=== PATIENT | female | born 1985 | race Caucasian/White ===

== ENCOUNTER 2018-02-01 00:42 | Emergency (ER) | payer MEDICAID, SELFPAY ==
[2018-02-01 00:44] VITALS: BP 156/100; PULSE 95; RESP 16; TEMP 36.7; O2SAT 98; BMI 55.1
[2018-02-01] MEDS: Lidocaine/Epi/Tetracaine 50 ML 1 APPLIC TOPICAL (01:09)
--- NOTE | 2018-02-01 01:43 | ED.DCSUM_ITS ---
- ER Visit Summary Date of Service: 02/01/18 Chief Complaint: Fall off porch with right ear laceration History of Present Illness: The patient is a 32 F significant past medical history of depression and reflux. Patient slipped and tripped was falling off her porch hit her right arm and lacerated her right ear when she broke a plastic flowerpot. No LOC. She is on no blood thinners. No neck pain. Denies other injuries. Tetanus is up-to-date. Physical Examination: Well-appearing young female. Vital signs are stable afebrile. H EENT exam pupils round reactive light. Scalp nontender no hematomas. She has 5-6 cm laceration of the external ear that is in a figure of a 7. It is approximately 2-1/2 cm across the top and about 3 vertically down. Involves the skin and subcu tissue. I do not see any exposed cartilage. The ear canal is unremarkable and the tympanic membrane is intact without hemotympanum. There is superficial abrasions along the angle of her jaw that she is able to open close her mouth without any difficulty there are no dental injuries but she does have poor dentition. Neck nontender full range of motion. Lungs clear heart regular rate and rhythm chest wall nontender. Abdomen soft nontender. Pelvic girdle intact. She is moving all 4 extremities. Neurovascular intact. No deformities. Normal range of motion. The right medial bicep tricep region in the midportion of the right upper arm has some bruising and abrasions but she has full range of motion of the right shoulder, elbow, wrist and hand. The right hand is neurovascularly intact. There are no deformities. And no loss of strength or sensation. She is a strong radial pulse. Back is nontender. Neurologic exam is normal. GCS is 15. Test Results: None Emergency Department Course and Treatment: Right ear laceration repair. There was external ear. It was in the figure of a 7. The laceration involves the skin and subcu tissue. It is approximately 2-1/2 cm across the top and 3-4 cm vertically. There was some blood. But no heavy active bleeding. No infection. No foreign body. There was a flap. Locally anesthetized with let and then with Xylocaine. Once proper sac was obtained it was cleaned with Shur- Clens irrigated and explored and closed using Vicryl 6 simple interrupted sutures. Proper hemostasis wound closure obtained patient tolerated procedure well. She was told that these are absorbable sutures. Treatment Plan: Ice to the area. Tylenol and Motrin for pain. Keep the wound clean. Return if any problems. Disposition: Discharge Impression: Acute fall Acute right outer ear laceration with ER repair of 6 cm. Right upper extremity contusion and abrasion. This note was generated with [employer] dictation software. It may contain incorrect words, spelling, and punctuation that were not noted in review of the chart prior to signing ED Disposition - Plan for ED Patient: Chief Complaint: Laceration Referrals: Cecilia Fenton DO [Primary Care Provider] -
--- NOTE | 2018-02-01 01:43 | ED.DEP ---
ED Disposition - Plan for ED Patient: Disposition: Home or Assisted Living Chief Complaint: Laceration Instructions: ED Laceration Facial Sutr Tape, ED Contusion Upper Ext Referrals: Cecilia Fenton DO [Primary Care Provider] - 10-14 Days suture removal Additional Instructions: Ice to face and ear. And arm. Tylenol and Motrin for pain. Keep wound clean. Clean daily with soap and water or peroxide and water. Apply antibiotic ointment daily. These stitches should dissolve in 2 weeks if they are not you can have them taken out.
[2018-02-01 01:46] VITALS: BP 148/80; PULSE 75; RESP 16; O2SAT 97
== END 2018-02-01 01:48 | disposition home or self-care (01) ==
PROVIDERS: Emergency Provider Emergency Medicine
DX: S01.311A Laceration without foreign body of right ear, initial encounter (principal); S40.021A Contusion of right upper arm, initial encounter; W17.89XA Other fall from one level to another, initial encounter; Y93.9 Activity, unspecified; Y92.9 Unspecified place or not applicable; Y99.9 Unspecified external cause status; K21.9 Gastro-esophageal reflux disease without esophagitis; F32.9 Major depressive disorder, single episode, unspecified; Z72.0 Tobacco use; Z79.899 Other long term (current) drug therapy; S00.81XA Abrasion of other part of head, initial encounter
CPT/HCPCS: 12014; 99283

== ENCOUNTER 2018-03-05 15:38 | Emergency (ER) | payer MEDICAID, SELFPAY ==
[2018-03-05 15:39] VITALS: BP 158/62; PULSE 118; RESP 17; TEMP 38.4; O2SAT 97; BMI 56.0
--- NOTE | 2018-03-05 16:20 | CT_ITS ---
STUDY: CT ABDOMEN AND PELVIS WITH CONTRAST REASON FOR EXAM: Female, 32 years old. Right upper quadrant pain RADIATION DOSAGE (If Supplied By Facility): CTDIvol = ( 18.74 ) mGy, DLP = ( 1480.68 ) mGycm TECHNIQUE: Transaxial images were obtained from the dome of the diaphragm to the symphysis pubis without oral contrast. 100CC ml of Isovue 300 contrast was administered. Sagittal and coronal images were reconstructed. Individualized dose optimization techniques were used for this CT. COMPARISON: None. FINDINGS: The visualized lung bases are clear. The visualized portions of the heart and pericardium are within normal limits. There are no calcified gallstones present. The liver is within normal limits. There are no suspicious hepatic lesions. The spleen is normal in size. The pancreas is within normal limits. The adrenal glands are within normal limits. There are no obstructing renal stones. There is no hydronephrosis. There are no focal renal lesions. Normal visualized stomach. There is no bowel obstruction or inflammation. The appendix is visualized and appears normal. The aorta is normal in caliber. There is no abdominal or pelvic free air, free fluid, fluid collection or lymphadenopathy. There are no destructive osseous lesions. CT/Abdomen/Pelvis W IV Cont ONLY IMPRESSION: No acute abdominal or pelvic pathology. Electronically Signed: Glenn Medina, at 17:54 EDT Tel , Service support ,
[2018-03-05] MEDS: 0.9% Normal Saline 1,000 ML 1000 ML IV (16:43)
[2018-03-05] MEDS: Acetaminophen 500 MG Tablet 1000 MG PO (16:44)
[2018-03-05 16:51] LABS: Mucous, Urine 0 SEEN /hpf (<or=2+)
[2018-03-05 16:59] LABS: Absolute Lymphocyte Count 1.46 X10^3/ul (0.83-4.51); Absolute Neutrophil Count 7.4 X10^3/uL (2.0-7.7); Basophil# 0.04 X10^3/uL; Basophil% 0.4 % (0-1); Eosinophil# 0.08 X10^3/uL; Eosinophils% 0.8 % (0-5); Hematocrit 43.2 % (37-47); Hemoglobin 14.5 g/dl (12.0-15.0); Lymphocyte # 1.46 X10^3/ul (4.0); Lymphocyte % 14.9 % (19-41); Mean Corp Hgb Conc 33.6 g/gl (32-36); Mean Corpuscular Volume 89.3 fL (81-99); Mean Platelet Vol. 10.9 fl (6.2-12.0); Monocyte% 8.2 % (0-10); Neutrophil # 7.39 X10^3/uL (2.7-7.7); Neutrophil % 75.5 % (47-70); Platelet Count 226 K/mm3 (150-450); RBC Distribution Width CV 14.9 % (11.6-14.6); RBC Distribution Width SD 48.7 fl (35.1-43.9); Red Blood Count 4.84 M/mm3 (4.2-5.4); White Blood Count 9.8 K/mm3 (4.4-11.0)
[2018-03-05 17:00] LABS: Color, Urine Yellow (Yellow); Glucose, Dipstick Normal (Normal); Ketone-Dipstick Negative (Negative); Leukocyte Esterase-Dipstick 500 /ul (Negative); Nitrite-Dipstick Negative (Negative); Occult Blood-Urine 25 /ul (Negative); Protein-Dipstick 30 mg/dl (Negative); Urine Bilirubin Dipstick Negative (Negative); Urine Clarity Sl. Cloudy (Clear); Urine Urobilinogen Normal (Normal)
[2018-03-05 17:00] LABS: POSITIVE COUNT NO; POSITIVE DIFFERENTIAL NO; POSITIVE MORPHOLOGY NO
[2018-03-05 17:03] LABS: AST(SGOT) 13 U/L (15-37); Alanine Aminotransfer ALT/SGPT 25 U/L (13-56); Albumin, Serum 3.5 g/dL (3.2-5.0); Alkaline Phosphatase 77 U/L (45-117); Anion Gap 10 (5-15); BUN 6 mg/dL (7-18); Bilirubin, Direct 0.12 mg/dL (0.00-0.30); Calcium,Total 8.8 mg/dL (8.5-10.1); Chloride 103 mmol/L (98-107); Creatinine, Serum 0.86 mg/dL (0.55-1.02); EST Glomerular Filtration Rate 80 mL/min (>60); Est Glom Filt Rate - Afr Amer 97 mL/min (>60); Estimated Creatinine Clearance 96.33 ml/min; Globulin 3.9 g/dL (2.2-4.2); Glucose 89 mg/dL (74-106); Lipase 91 U/L (73-393); Potassium 3.4 mmol/L (3.5-5.1); Protein, Total 7.4 g/dL (6.4-8.2); Sodium Level 139 mmol/L (136-145)
[2018-03-05 17:07] LABS: Amorphous Sediment 1+ PHOS; Bacteria 1+ /hpf (None Seen); Red Blood Cells-Urine 0-5 SEEN /hpf (0-5); Squamous Epithelial Cells - UA 0-5 SEEN /hpf (5-10); White Blood Cells 50-100 SEEN /hpf (0-5)
--- NOTE | 2018-03-05 17:35 | RAD_ITS ---
STUDY: X-RAY CHEST REASON FOR EXAM: Female, 32 years old. Fever TECHNIQUE: Frontal and lateral views of the chest COMPARISON: None. FINDINGS: The lungs are clear. There are no pleural effusions. There is no pneumothorax. The heart is normal in size. The visualized osseous structures are within normal limits. RAD/Chest PA and Lateral IMPRESSION: No acute thoracic pathology. Electronically Signed: Glenn Medina, at 17:56 EDT Tel , Service support ,
--- NOTE | 2018-03-05 18:10 | ED.VISSUMM ---
- ER Visit Summary Date of Service: 03/05/18 Chief Complaint: I feel funny History of Present Illness: The patient is a 32 F past medical history of reflux and gallstones also depression. Patient states that since last night she just feels not well. She did not realize she had a fever so she came to the ER. Her last menstrual period was 1 week ago. She states she has been p.m. more frequently but does not burn or hurt is not cloudy or bloody. She denies any severe headache she also denies any nausea, vomiting via. She denies any cough or abdominal pain she denies any chills. Physical Examination: Vital signs are stable she does have a fever 101.1. She does not look septic or toxic. She is in no distress. H EENT exam unremarkable. Moist mucous members. Neck nontender no meningismus. Lungs clear to auscultation bilaterally. Heart tachycardic rate about 118 no murmur. Abdomen is soft. She is obese. She has very minimal right upper quadrant discomfort. But no peritoneal signs. Right lower quadrant unremarkable. She is moving all 4 extremities. Neurovascular intact. Neurologically she is awake alert with no focal motor or sensory deficits. Test Results: Patient underwent infectious workup. Chest x-ray two-view showed no acute abnormality read both by myself the radiologist. CT abdomen and pelvis showed no acute abnormality. They did not see any gallstones or calcified this time. CBC showed a white count 9 H&H 1443. Chemistries normal. Liver enzymes and lipase normal UAs showed 50-100 white cells consistent with UTI 1+ bacteria no nitrates. No epithelial cells. It was sent for culture. Emergency Department Course and Treatment: Treated with Keflex 500 mg 4 times daily for 1 week. Given first dose in the ER. She was treated with a liter fluid in the ER. Treatment Plan: Keflex 4 times daily for 1 week. Follow-up with primary care physician. Return if worse. Disposition: Discharge Impression: Acute UTI with fever This note was generated with [employer] dictation software. It may contain incorrect words, spelling, and punctuation that were not noted in review of the chart prior to signing ED Disposition - Plan for ED Patient: Chief Complaint: General Illness Referrals: Cecilia Fenton DO [Primary Care Provider] -
--- NOTE | 2018-03-05 18:15 | ED.DEP ---
ED Disposition - Plan for ED Patient: Disposition: Home or Assisted Living Chief Complaint: General Illness Instructions: ED UTI Cystitis Female Prescriptions: Cephalexin [Keflex] 500 mg PO Q6 #28 cap Referrals: Cecilia Fenton DO [Primary Care Provider] - 3-5 Days Additional Instructions: Plenty fluids and rest. Alternate Tylenol Motrin for fever. Urine culture was sent those results should be back in 48 hours. He will be started on antibiotic, Keflex to be taken 4 times a day till gone to treat the UTI. Follow-up with primary care physician or return to ER if worse.
[2018-03-05 18:27] VITALS: BP 147/73; PULSE 96; RESP 18; TEMP 37.4
[2018-03-05] MEDS: Cephalexin 250 MG Capsule 500 MG PO (18:27)
== END 2018-03-05 18:29 | disposition home or self-care (01) ==
PROVIDERS: Emergency Provider Emergency Medicine
DX: N39.0 Urinary tract infection, site not specified (principal); R50.9 Fever, unspecified; R00.0 Tachycardia, unspecified; K21.9 Gastro-esophageal reflux disease without esophagitis; E66.9 Obesity, unspecified; F32.9 Major depressive disorder, single episode, unspecified; Z79.899 Other long term (current) drug therapy; Z72.0 Tobacco use
CPT/HCPCS: 71046; 74177; 80048; 80076; 81001; 83690; 85025; 87040; 87086; 87088; 87186; 96360; 99285; J7030; Q9967; A4216

== ENCOUNTER 2018-06-14 03:57 | Emergency (ER) | payer MEDICAID, SELFPAY ==
[2018-06-14 03:58] VITALS: BP 147/84; PULSE 90; RESP 16; TEMP 36.8; O2SAT 97; BMI 54.9
--- NOTE | 2018-06-14 04:42 | ED.VISSUMM ---
- ER Visit Summary Date of Service: 06/14/18 Chief Complaint: Something not right going on in my head History of Present Illness: The patient is a 32 F who presents for 1 week of an odd feeling in her head. She states that her brain feels sluggish and when she turns her head she feels like things around her move at a different speed. Symptoms are relieved if she sits still. She also has an occasional episode of a tingling sensation running down her left arm that will last approximately 15-20 seconds. It is occurred approximately once daily since her symptoms started. Yesterday she felt brief neck stiffness but it resolved without any medication. She denies fever, blurred vision, chest pain, shortness of breath, abdominal pain, vomiting or diarrhea, urinary symptoms, , or other complaints. She notes a head injury 6 months ago where she fell and struck the right side of her head on a pot, breaking the pot. She required stitches in her right ear. 2 months ago she was evaluated for similar symptoms as today, and states she had a full workup with no findings. Her symptoms resolved on their own after approximately 1 week. Patient takes Lexapro, and states she ran out of her prescription, and has not taken any since shortly before these current symptoms started. Physical Examination: Vital signs: afebrile, hemodynamically stable, no hypoxia on room air General: well nourished, well developed, in no distress Skin: warm, dry, no rash, no pallor HEENT: normocephalic and atraumatic; PERRL, EOMI, moist mucous membranes, no nystagmus, no facial droop, neck is nontender, full active range of motion and supple Cardiovascular: regular rate and rhythm without murmurs, no peripheral edema, 2+ pulses all distal extremities Respiratory: No increased work of breathing, lungs are clear to auscultation bilaterally, no rales, rhonchi or wheezing Abdominal: Abdomen is soft, nontender with normoactive bowel sounds, no guarding or rebound, no masses MSK: Moves all extremities, no deformities, normal strength Neuro: Awake and alert, oriented ?4. No facial droop, sensation and motor function intact and symmetric, gait is normal, no cerebellar signs, no ataxia Test Results: [] Emergency Department Course and Treatment: Patient's description of her symptoms sounds consistent with peripheral vertigo. After we discussed her medications and she stated she was supposed to be on Lexapro but ran out over 1 week ago, shortly before these vague symptoms began, we discussed the possibility that this is a SSRI withdrawal syndrome, especially with the tingling in her left arm and the multiple vague complaints consistent with vertigo and disequilibrium. Patient has no findings on her history or exam that would be concerning for a central cause of her symptoms, especially since she had similar episodes in the past that resolved after several days without intervention. Patient was given a dose of meclizine. She was given a prescription for meclizine and also a prescription for her Lexapro. She has an appointment with her primary care doctor for her annual exam and to get a refill on her Lexapro prescription. She will keep this appointment. She will see if she feels better after resuming her Lexapro tomorrow. Return precautions given. Patient discharged home very well-appearing. Treatment Plan: [] Disposition: [] Impression: Peripheral vertigo, SSRI withdrawal syndrome This note was generated with [employer] dictation software. It may contain incorrect words, spelling, and punctuation that were not noted in review of the chart prior to signing ED Disposition - Plan for ED Patient: Disposition: Home or Assisted Living Chief Complaint: Ear Problem Instructions: ED Vertigo Unspecified Prescriptions: Escitalopram Oxalate [Lexapro] 10 mg PO DAILY #30 tab Meclizine HCl [Motion Sickness Relief] 25 mg PO TID PRN PRN #30 tab PRN Reason: Dizziness Referrals: Cecilia Fenton DO [Primary Care Provider] - Keep Regina appointment Additional Instructions: Your symptoms may be due to withdrawal from your Lexapro. Please fill the prescription and start taking it again today. Use the meclizine as needed for vertigo and disequilibrium. Return if you have any worsening of your symptoms, and keep your appointment with your family doctor as already scheduled. If you have any worsening of your condition or any new concerning symptoms, please return immediately to the emergency department for another evaluation.
--- NOTE | 2018-06-14 04:47 | ED.DEP ---
ED Disposition - Plan for ED Patient: Disposition: Home or Assisted Living Chief Complaint: Ear Problem Instructions: ED Vertigo Unspecified Prescriptions: Escitalopram Oxalate [Lexapro] 10 mg PO DAILY #30 tab Meclizine HCl [Motion Sickness Relief] 25 mg PO TID PRN PRN #30 tab PRN Reason: Dizziness Referrals: Cecilia Fenton DO [Primary Care Provider] - Keep Regina appointment Additional Instructions: Your symptoms may be due to withdrawal from your Lexapro. Please fill the prescription and start taking it again today. Use the meclizine as needed for vertigo and disequilibrium. Return if you have any worsening of your symptoms, and keep your appointment with your family doctor as already scheduled. If you have any worsening of your condition or any new concerning symptoms, please return immediately to the emergency department for another evaluation.
[2018-06-14] MEDS: Meclizine HCl 25 MG Tablet PO (04:56)
[2018-06-14 05:06] VITALS: RESP 14
== END 2018-06-14 05:07 | disposition home or self-care (01) ==
PROVIDERS: Emergency Provider Emergency Medicine
DX: H81.399 Other peripheral vertigo, unspecified ear (principal); F13.239 Sedative, hypnotic or anxiolytic dependence with withdrawal, unspecified; R20.2 Paresthesia of skin
CPT/HCPCS: 99283

== ENCOUNTER 2018-10-07 17:06 | Emergency (ER) | payer MEDICAID, SELFPAY ==
[2018-10-07 17:07] VITALS: BP 169/94; PULSE 95; RESP 16; TEMP 36.4; O2SAT 100; BMI 51.7
--- NOTE | 2018-10-07 18:08 | RAD_ITS ---
STUDY: X-RAY - LEFT SHOULDER REASON FOR EXAM: Female, 33 years old. Pain TECHNIQUE: 4 view(s) of the shoulder. COMPARISON: None. FINDINGS: Normal glenohumeral articulation. Normal acromioclavicular joint. Normal acromion. Normal humeral head and visualized proximal humerus. The soft tissue structures are unremarkable. Normal visualized pulmonary apex. RAD/Shoulder min 2 Views IMPRESSION: Normal x-ray examination of the shoulder. Electronically Signed: Roland Rogers DO at 18:27 EST Tel [phone], Service support ,
--- NOTE | 2018-10-07 18:53 | ED.VIS.GEN ---
History of Present Illness Chief Complaint: Upper Extremity Injury Informant: Patient Onset: Today - JPTA Context: Sudden Onset - while using LUE to open a car door Quality: pain Location: anterior left shoulder Current Severity: Moderate Maximum Severity: Severe Worsened by: any movement of left shoulder Relieved by: remaining still Associated Symptoms: none Narrative: No history of steroid injections or surgeries in her left upper extremity. [id number]. No neurologic symptoms into her upper extremity or pain into her neck. No other radiation of pain except down her anterior left upper arm, along the biceps area. Past Medical History - Allergies and Home Meds Allergies/Adverse Reactions: Allergies No Known Allergies Allergy (Verified 06/14/18 04:00) Primary Care Physician: Cecilia Fenton DO [Primary Care Provider] - Past Medical History: None Lives: Alone Smoking Status: Current every day smoker Review of Systems Musculoskeletal: Reports: Extremity Pain. Denies: Neck pain, Back pain, Swelling Skin: Denies: Rash, Wounds Neurological: Denies: Weakness, Parasthesia Physical Exam Vital Signs/Narrative: Vital Signs Temp Pulse Resp BP Pulse Ox 10/07/18 17:07 97.6 F L 95 16 169/94 H 100 Inital Vital Signs reviewed: Yes General: Well nourished, Well developed, Obese Head: Normocephalic, Atraumatic Back: Nontender Extremities: No edema, Tenderness - Anterior left shoulder an area of short head of biceps tendon proximally. No subacromial tenderness. No bony acromion or AC joint tenderness, or other bony tenderness. Limited forward flexion of arm and abduction secondary to pain. No deformity. Able to internally and externally rotate, and extend against resistance without significant discomfort. Skin: Normal color, No rash, No Trauma Neurological: Alert, Oriented x3, Cranial nerves II-XII grossly intact, Normal Strength, Normal Sensation Psychological: Normal affect Diagnostic/Tx/Re-eval Clinical Impression(s) from Imaging Studies Shoulder X-Ray 10/07/18 18:08 IMPRESSION: Normal x-ray examination of the shoulder. Electronically Signed: Roland Rogers DO at 18:27 EST Tel [phone], Service support , - Medical Decision Making X-rays are unremarkable. My suspicion is that she ruptured her biceps short head tendon. We will place her in a sling, prescribed analgesics, and refer to orthopedics for further evaluation and possibly advanced imaging which is not indicated emergently. ED Disposition - Plan for ED Patient: Disposition: Home or Assisted Living Chief Complaint: Upper Extremity Injury Diagnosis: Rupture of left proximal biceps tendon Instructions: ED Torn Rotator Cuff Prescriptions: traMADol [Ultram] 50 mg PO Q4H PRN PRN 3 Days #20 tab PRN Reason: Pain Naproxen [Naprosyn] 500 mg PO BID PRN #20 tab Referrals: Justice Torre DO [STAFF PHYSICIAN] - As soon as possible
[2018-10-07] MEDS: traMADol 50 MG Tablet PO (19:08)
[2018-10-07] MEDS: Naproxen 500 MG Tablet PO (19:08)
[2018-10-07 19:09] VITALS: BP 141/80; PULSE 70; RESP 17; O2SAT 100
--- OUTSIDE RECORDS SUMMARY | 2018-12-12 17:03 | XMS RPT_ITS ---
:1985 Author Organization [place] Care Team Providers Name Role Phone Cecilia Fenton Primary Care Unavailable CHARLES ARAUJO Attending Unavailable Cecilia Fenton Primary Care Unavailable Vijay Salguero Attending Unavailable Cecilia Fenton Primary Care Unavailable Vijay Salguero Attending Unavailable Cecilia Fenton Primary Care Unavailable Farida Peter Attending Unavailable PROBLEMS PROBLEMS DATE TYPE CONDITION / CODE ATTENDING STATUS SOURCE 10/07/2018 Unknown S46.219A - Strain CHARLES ARAUJO Active [place] of muscle, fascia Community and tendon of Hospital other parts of Repository biceps, unspecified arm, initial encounter / S46.219A(ICD-10) PROCEDURES PROCEDURES No Procedure Records FoundRESULTS RESULTS EMERGENCY DEPARTMENT Observed: 10/07/2018 Status: F Source: LINGLE SUMMARY 6:58 PM [facility] REPOSIT[facility] Medical Records Department [address] [place] [address] Emergency Department Summary 10/07/18 1853 MR#: [id number] Acct: [id number] Name: MARY GONZALEZ Rep #: [id number] : 1985 33 From: Charles Araujo MD PCP: Cecilia Fenton DO Status: REG ER History of Present Illness Chief Complaint: Upper Extremity Injury Informant: Patient Onset: Today - JPTA Context: Sudden Onset - while using LUE to open a car door Quality: pain Location: anterior left shoulder Current Severity: Moderate Maximum Severity: Severe Worsened by: any movement of left shoulder Relieved by: remaining still Associated Symptoms: none Narrative: No history of steroid injections or surgeries in her left upper extremity. [id number]. No neurologic symptoms into her upper extremity or pain into her neck. No other radiation of pain except down her anterior left upper arm, along the biceps area. Past Medical History - Allergies and Home Meds Allergies/Adverse Reactions: Allergies No Known Allergies Allergy (Verified 06/14/18 04:00) Primary Care Physician: Cecilia Fenton DO [Primary Care Provider] - Past Medical History: None Lives: Alone Smoking Status: Current every day smoker Review of Systems Musculoskeletal: Reports: Extremity Pain. Denies: Neck pain, Back pain, Swelling Skin: Denies: Rash, Wounds Neurological: Denies: Weakness, Parasthesia Physical Exam Vital Signs/Narrative: Vital Signs 10/07/18 17:07 97.6 F L 95 16 169/94 H 100 Inital Vital Signs reviewed: Yes General: Well nourished, Well developed, Obese Head: Normocephalic, Atraumatic Back: Nontender Extremities: No edema, Tenderness - Anterior left shoulder an area of short head of biceps tendon proximally. No subacromial tenderness. No bony acromion or AC joint tenderness, or other bony tenderness. Limited forward flexion of arm and abduction secondary to pain. No deformity. Able to internally and externally rotate, and extend against resistance without significant discomfort. Skin: Normal color, No rash, No Trauma Neurological: Alert, Oriented x3, Cranial nerves II-XII grossly intact, Normal Strength, Normal Sensation Psychological: Normal affect Diagnostic/Tx/Re-eval Clinical Impression(s) from Imaging Studies Shoulder X-Ray 10/07/18 18:08 IMPRESSION: Normal x-ray examination of the shoulder. Electronically Signed: Roland Rogers DO at 18:27 EST Tel [phone], Service support , - Medical Decision Making X-rays are unremarkable. My suspicion is that she ruptured her biceps short head tendon. We will place her in a sling, prescribed analgesics, and refer to orthopedics for further evaluation and possibly advanced imaging which is not indicated emergently. ED Disposition - Plan for ED Patient: Disposition: Home or Assisted Living Chief Complaint: Upper Extremity Injury Diagnosis: Rupture of left proximal biceps tendon Instructions: ED Torn Rotator Cuff Prescriptions: traMADol [Ultram] 50 mg PO Q4H PRN PRN 3 Days #20 tab PRN Reason: Pain Naproxen [Naprosyn] 500 mg PO BID PRN #20 tab Referrals: Justice Torre DO [STAFF PHYSICIAN] - As soon as possible What to do if you have Problems For any increased pain, shortness of breath, bleeding, nausea or vomiting, chest pain, or any unexpected problems, contact your Primary Care Provider. Call [facility] ([phone]) or report to the closest Emergency Room. Call 911 if necessary. 10/07/18 5611 <Electronically signed by Charles Araujo MD> Date Charles Araujo MD Cosigner Signature (If Indicated): Date CC: Cecilia Fenton DO SHOULDER MIN 2 VIEWS Observed: 10/07/2018 Status: F Source: DIANNA 6:02 PM [facility]POS[facility] Imaging Services [facility] [place] [address] Shoulder min 2 Views MR#: [id number] Acct: [id number] Name: MARY OGNZALEZ Rep #: [id number] : 1985 F 33 From: Roland Rogers DO PCP: Cecilia Fenton DO Status: REG ER Study: Shoulder min 2 Views Date of Exam: 10/07/18 Exam# [id number] Ordering Dr: Charles Araujo MD STUDY: X-RAY - LEFT SHOULDER REASON FOR EXAM: Female, 33 years old. Pain TECHNIQUE: 4 view(s) of the shoulder. COMPARISON: None. FINDINGS: Normal glenohumeral articulation. Normal acromioclavicular joint. Normal acromion. Normal humeral head and visualized proximal humerus. The soft tissue structures are unremarkable. Normal visualized pulmonary apex. RAD/Shoulder min 2 Views IMPRESSION: Normal x-ray examination of the shoulder. Electronically Signed: Roland Rogers DO at 18:27 EST Tel [phone], Service support , CC: CHARLES ARAUJO MD; Cecilia Fenton DO Tourist Information Assistant: Signed EMERGENCY DEPARTMENT Observed: 06/14/2018 Status: F Source: LINGLE SUMMARY 8:42 AM [facility]POS[facility] Medical Records Department [address] [place] [address] Emergency Department Summary 06/14/18 0442 MR#: [id number] Acct: [id number] Name: MARY GONZALEZ Rep #: [id number] : 1985 32 From: Farida Peter MD PCP: Cecilia Fenton DO Status: DEP ER - ER Visit Summary Date of Service: 06/14/18 Chief Complaint: Something not right going on in my head History of Present Illness: The patient is a 32 F who presents for 1 week of an odd feeling in her head. She states that her brain feels sluggish and when she turns her head she feels like things around her move at a different speed. Symptoms are relieved if she sits still. She also has an occasional episode of a tingling sensation running down her left arm that will last approximately 15-20 seconds. It is occurred approximately once daily since her symptoms started. Yesterday she felt brief neck stiffness but it resolved without any medication. She denies fever, blurred vision, chest pain, shortness of breath, abdominal pain, vomiting or diarrhea, urinary symptoms, , or other complaints. She notes a head injury 6 months ago where she fell and struck the right side of her head on a pot, breaking the pot. She required stitches in her right ear. 2 months ago she was evaluated for similar symptoms as today, and states she had a full workup with no findings. Her symptoms resolved on their own after approximately 1 week. Patient takes Lexapro, and states she ran out of her prescription, and has not taken any since shortly before these current symptoms started. Physical Examination: Vital signs: afebrile, hemodynamically stable, no hypoxia on room air General: well nourished, well developed, in no distress Skin: warm, dry, no rash, no pallor HEENT: normocephalic and atraumatic; PERRL, EOMI, moist mucous membranes, no nystagmus, no facial droop, neck is nontender, full active range of motion and supple Cardiovascular: regular rate and rhythm without murmurs, no peripheral edema, 2+ pulses all distal extremities Respiratory: No increased work of breathing, lungs are clear to auscultation bilaterally, no rales, rhonchi or wheezing Abdominal: Abdomen is soft, nontender with normoactive bowel sounds, no guarding or rebound, no masses MSK: Moves all extremities, no deformities, normal strength Neuro: Awake and alert, oriented 4. No facial droop, sensation and motor function intact and symmetric, gait is normal, no cerebellar signs, no ataxia Test Results: [] Emergency Department Course and Treatment: Patient's description of her symptoms sounds consistent with peripheral vertigo. After we discussed her medications and she stated she was supposed to be on Lexapro but ran out over 1 week ago, shortly before these vague symptoms began, we discussed the possibility that this is a SSRI withdrawal syndrome, especially with the tingling in her left arm and the multiple vague complaints consistent with vertigo and disequilibrium. Patient has no findings on her history or exam that would be concerning for a central cause of her symptoms, especially since she had similar episodes in the past that resolved after several days without intervention. Patient was given a dose of meclizine. She was given a prescription for meclizine and also a prescription for her Lexapro. She has an appointment with her primary care doctor for her annual exam and to get a refill on her Lexapro prescription. She will keep this appointment. She will see if she feels better after resuming her Lexapro tomorrow. Return precautions given. Patient discharged home very well-appearing. Treatment Plan: [] Disposition: [] Impression: Peripheral vertigo, SSRI withdrawal syndrome This note was generated with [employer] software. It may contain incorrect words, spelling, and punctuation that were not noted in review of the chart prior to signing ED Disposition - Plan for ED Patient: Disposition: Home or Assisted Living Chief Complaint: Ear Problem Instructions: ED Vertigo Unspecified Prescriptions: Escitalopram Oxalate [Lexapro] 10 mg PO DAILY #30 tab Meclizine HCl [Motion Sickness Relief] 25 mg PO TID PRN PRN #30 tab PRN Reason: Dizziness Referrals: Cecilia Fenton DO [Primary Care Provider] - Keep Regina appointment Additional Instructions: Your symptoms may be due to withdrawal from your Lexapro. Please fill the prescription and start taking it again today. Use the meclizine as needed for vertigo and disequilibrium. Return if you have any worsening of your symptoms, and keep your appointment with your family doctor as already scheduled. If you have any worsening of your condition or any new concerning symptoms, please return immediately to the emergency department for another evaluation. What to do if you have Problems For any increased pain, shortness of breath, bleeding, nausea or vomiting, chest pain, or any unexpected problems, contact your Primary Care Provider. Call [facility] ([phone]) or report to the closest Emergency Room. Call 911 if necessary. 06/14/18 0886 <Electronically signed by Farida Peter MD> Date Farida Peter MD Cosigner Signature (If Indicated): Date CC: Cecilia Fenton DO DISCHARGE INSTRUCTION Observed: 06/14/2018 Status: F Source: DIANNA 7:55 AM [facility] Medical Records Department [address] [place] [address] Discharge Instruction 06/14/18 0447 MR#: [id number] Acct: [id number] Name: MARY GONZALEZ Rep #: [id number] : 1985 32 From: Farida Peter MD PCP: Cecilia Fenton DO Status: DEP ER ED Disposition - Plan for ED Patient: Disposition: Home or Assisted Living Chief Complaint: Ear Problem Instructions: ED Vertigo Unspecified Prescriptions: Escitalopram Oxalate [Lexapro] 10 mg PO DAILY #30 tab Meclizine HCl [Motion Sickness Relief] 25 mg PO TID PRN PRN #30 tab PRN Reason: Dizziness Referrals: Cecilia Fenton DO [Primary Care Provider] - Keep Regina appointment Additional Instructions: Your symptoms may be due to withdrawal from your Lexapro. Please fill the prescription and start taking it again today. Use the meclizine as needed for vertigo and disequilibrium. Return if you have any worsening of your symptoms, and keep your appointment with your family doctor as already scheduled. If you have any worsening of your condition or any new concerning symptoms, please return immediately to the emergency department for another evaluation. What to do if you have Problems For any increased pain, shortness of breath, bleeding, nausea or vomiting, chest pain, or any unexpected problems, contact your Primary Care Provider. Call [facility] ([phone]) or report to the closest Emergency Room. Call 911 if necessary. 06/14/18 0755 <Electronically signed by Farida Peter MD> Date Farida Peter MD Cosigner Signature (If Indicated): Date CC: Cecilia Fenton DO EMERGENCY DEPARTMENT Observed: 03/06/2018 Status: F Source: DIANNA SUMMARY 12:44 AM [facility] Medical Records Department [address] [place] [address] Emergency Department Summary 03/05/18 1810 MR#: [id number] Acct: [id number] Name: MARY GONZALEZ Rep #: [id number] : 1985 32 From: Vijay Salguero MD PCP: Cecilia Fenton DO Status: DEP ER - ER Visit Summary Date of Service: 03/05/18 Chief Complaint: I feel funny History of Present Illness: The patient is a 32 F past medical history of reflux and gallstones also depression. Patient states that since last night she just feels not well. She did not realize she had a fever so she came to the ER. Her last menstrual period was 1 week ago. She states she has been p.m. more frequently but does not burn or hurt is not cloudy or bloody. She denies any severe headache she also denies any nausea, vomiting via. She denies any cough or abdominal pain she denies any chills. Physical Examination: Vital signs are stable she does have a fever 101.1. She does not look septic or toxic. She is in no distress. H EENT exam unremarkable. Moist mucous members. Neck nontender no meningismus. Lungs clear to auscultation bilaterally. Heart tachycardic rate about 118 no murmur. Abdomen is soft. She is obese. She has very minimal right upper quadrant discomfort. But no peritoneal signs. Right lower quadrant unremarkable. She is moving all 4 extremities. Neurovascular intact. Neurologically she is awake alert with no focal motor or sensory deficits. Test Results: Patient underwent infectious workup. Chest x-ray two-view showed no acute abnormality read both by myself the radiologist. CT abdomen and pelvis showed no acute abnormality. They did not see any gallstones or calcified this time. CBC showed a white count 9 H AND H 1443. Chemistries normal. Liver enzymes and lipase normal UAs showed 50-100 white cells consistent with UTI 1+ bacteria no nitrates. No epithelial cells. It was sent for culture. Emergency Department Course and Treatment: Treated with Keflex 500 mg 4 times daily for 1 week. Given first dose in the ER. She was treated with a liter fluid in the ER. Treatment Plan: Keflex 4 times daily for 1 week. Follow-up with primary care physician. Return if worse. Disposition: Discharge Impression: Acute UTI with fever This note was generated with [employer] dictation software. It may contain incorrect words, spelling, and punctuation that were not noted in review of the chart prior to signing ED Disposition - Plan for ED Patient: Chief Complaint: General Illness Referrals: Cecilia Fenton DO [Primary Care Provider] - What to do if you have Problems For any increased pain, shortness of breath, bleeding, nausea or vomiting, chest pain, or any unexpected problems, contact your Primary Care Provider. Call [facility] ([phone]) or report to the closest Emergency Room. Call 911 if necessary. 03/06/18 0044 <Electronically signed by Vijay Salguero MD> Date Vijay Salguero MD Cosign Signature (If Indicated): Date CC: Cecilia Fenton DO DISCHARGE INSTRUCTION Observed: 03/06/2018 Status: F Source: LINGLE 12:44 AM [facility] Medical Records Department [address] [place] [address] Discharge Instruction 03/05/18 1815 MR#: [id number] Acct: [id number] Name: LISAMARY M Rep #: [id number] : 1985 32 From: Vijay Salguero MD PCP: Cecilia Fenton DO Status: DEP ER ED Disposition - Plan for ED Patient: Disposition: Home or Assisted Living Chief Complaint: General Illness Instructions: ED UTI Cystitis Female Prescriptions: Cephalexin [Keflex] 500 mg PO Q6 #28 cap Referrals: Cecilia Fenton DO [Primary Care Provider] - 3-5 Days Additional Instructions: Plenty fluids and rest. Alternate Tylenol Motrin for fever. Urine culture was sent those results should be back in 48 hours. He will be started on antibiotic, Keflex to be taken 4 times a day till gone to treat the UTI. Follow-up with primary care physician or return to ER if worse. What to do if you have Problems For any increased pain, shortness of breath, bleeding, nausea or vomiting, chest pain, or any unexpected problems, contact your Primary Care Provider. Call [facility] ([phone]) or report to the closest Emergency Room. Call 911 if necessary. 03/06/18 0044 <Electronically signed by Vijay Salguero MD> Date Vijay Salguero MD Cosigner Signature (If Indicated): Date CC: Cecilia Fenton DO Observed: 03/05/2018 Status: F Source: DIANNA CULTURE, BLOOD (WB) 5:15 PM [facility] REPOSITORY BC No growth in 5 days. Performed By: #### M200.1000 #### [facility] [address] [place], [address] URINALYSIS, COMPLETE Collected: 03/05/2018 Status: F Source: DIANNA 4:48 PM [facility] REPOSITORY Order Comment: Order Date: 03/05/18 How was Urine Obtained? CLEAN CATCH TYPE CODE TESTS RESULT OUT OF RANGE REFERENCE UNITS LAB L400.3000 Yellow COLOR Normal Yellow LAB L400.3050 Clear Normal CLARITY Sl. Cloudy LAB L400.3200 Normal mg/dl Normal GLUCOSE, UR Normal LAB L400.3300 Negative mg/dL Normal BILIRUBIN URINE Negative LAB L400.3400 Negative mg/dl Normal KETONE UR Negative LAB L400.3465 1.002-1.030 Normal SP.GR. DIPSTX 1.010 LAB L400.3550 5.0 - 8.0 pH UR Normal 8.0 LAB L400.3600 Negative mg/dl High PROT 30 DIPSTX LAB L400.3700 Normal mg/dl Normal UROBILI Normal LAB L400.3750 Negative Normal NITRITE UR Negative LAB L400.3780 Negative /ul High 25 OCCULT BLOOD-UR LAB L400.3800 Negative /ul High LEUK ESTERASE 500 LAB L400.4050 0-5 /hpf WBC Normal 50-100 SEEN LAB L400.4100 0-5 /hpf Normal RBC-UA 0-5 SEEN LAB L400.4150 5-10 /hpf SQUAM Normal EPI 0-5 SEEN LAB L400.4300 None Seen /hpf 1+ Normal BACTERIA LAB L400.4350 <or=2+ /hpf 0 Normal MUCUS, URINE SEEN LAB L400.4900 1+ Normal AMORPHOUS PHOS Performed By: #### L400.0001 #### [facility] [address] [facility]. [place], [place], [id number] Observed: 03/05/2018 Status: F Source: LINGLE CULTURE, URINE 4:48 PM [facility] REPOSITORY Order Date: 03/05/18 Urine Culture ORGANISM 1: Presumptive E. coli [place] Count >100,000 Presumptive E. coli: REACTION Amoxacillin/Clavulanic Acid $ 4 S Ampicillin $ >=32 R Ampicillin/Sulbactam $ 16 I Cefazolin $ <=4 S Cefepime $ <=1 S Ceftriaxone $ <=1 S Ciprofloxacin $ <=0.25 S ESBL - Ertapenim $$$ <=0.5 S Gentamicin $ <=1 S Imipenem *NF <=0.25 S Levofloxacin $ <=0.12 S Nitrofurantoin $ 32 S Piperacillin/Tazobactam $$ <=4 S Tobramycin $ <=1 S Trimethoprim/Sulfametho $ <=20 S (NF) indicates non-formulary drug at [facility]. Approval by Infectious Disease Specialist required before non-formulary drugs may be ordered and/or dispensed. Performed By: #### M100.0650 #### [facility] [address] [facility]. [place], [place], [id number] CBC W/DIFF, AUTOMATED Collected: 03/05/2018 Status: F Source: DIANNA 4:35 PM [facility]POS[facility] TYPE CODE TESTS RESULT OUT OF RANGE REFERENCE UNITS LAB L100.1000 4.4-11.0 K/mm3 Normal WBC 9.8 LAB L100.1200 4.2-5.4 M/mm3 Normal RBC 4.84 LAB L100.1300 12.0-15.0 g/dl Normal HGB 14.5 LAB L100.1400 37-47 % Normal HCT 43.2 LAB L100.1500 81-99 fL Normal MCV 89.3 LAB L100.1600 27.0-32.0 pg Normal MCH 30.0 LAB L100.1700 32-36 g/gl Normal MCHC 33.6 LAB L100.1810 11.6-14.6 % High RDW CV 14.9 LAB L100.1820 35.1-43.9 fl High RDW SD 48.7 LAB L100.1900 150-450 K/mm3 Normal PLT 226 LAB L100.2000 6.2-12.0 fl Normal MPV 10.9 LAB L100.2100 47-70 % High NEUT% 75.5 LAB L100.2200 19-41 % Low LY% 14.9 LAB L100.2300 0-10 % Normal MONO% 8.2 LAB L100.2400 0-5 % Normal EO% 0.8 LAB L100.2500 0-1 % Normal BASO% 0.4 LAB L100.2550 0.0-0.9 % Normal IM GRAN % 0.200 Result Comment: IG% - Immature Granulocytes (promyelocytes, myelocytes and metamyelocytes) > 1% indicates that a LEFT SHIFT is Present. LAB L100.2620 2.0-7.7 X10 3/uL Normal Absolute Neut 7.4 LAB L100.2720 0.83-4.51 X10 3/ul Normal Absolute Lymph 1.46 Performed By: #### L100.0100 #### [facility] [address] [place], [place], [address] BASIC METABOLIC Collected: 03/05/2018 Status: F Source: DIANNA PROFILE (BMP) 4:35 PM [facility]POS[facility] TYPE CODE TESTS RESULT OUT OF RANGE REFERENCE UNITS LAB L501.0100 74-106 mg/dL Normal GLU 89 Result Comment: Please note revised GLUCOSE reference range effective 2017. LAB L501.1000 7-18 mg/dL Low BUN 6 LAB L501.1100 0.55-1.02 mg/dL Normal CREAT,SERUM 0.86 Result Comment: The validity of the calculated GFR AND GFRAA in patients over 70 years has not been determined. Clinical correlation is essential. LAB L501.1110 >60 mL/min Normal EST GFR 80 Result Comment: Non- GFR Calc LAB L501.1115 >60 mL/min Normal EST GFR - AA 97 Result Comment: GFR Calc LAB L501.1255 ml/min Normal Estimated CRCL 96.33 LAB L501.1300 10-20 RATIO Low BUN/CRE 7.0 LAB L501.2200 8.5-10 mg/dL Normal .1 CA 8.8 LAB L501.5300 136-14 mmol/L Normal 5 NA 139 LAB L501.5600 3.5-5. mmol/L Low 1 K 3.4 LAB L501.5900 98-107 mmol/L Normal CL 103 LAB L501.6100 21.0-3 mmol/L Normal 2.0 CO2 26.0 LAB L501.6200 5-15 Normal GAP 10 Performed By: #### L500.2500, L500.3400, L501.2450 #### [facility] [address] [place], [address] LIVER PROFILE Collected: 03/05/2018 Status: F Source: LINGLE 4:35 PM [facility]POS[facility] TYPE CODE TESTS RESULT OUT OF RANGE REFERENCE UNITS LAB L501.1500 6.4-8.2 g/dL Normal T PROT 7.4 LAB L501.1800 3.2-5.0 g/dL Normal ALB 3.5 LAB L501.1950 2.2-4.2 g/dL Normal GLOB 3.9 LAB L501.4100 15-37 U/L Low AST 13 LAB L501.4305 45-117 U/L Normal ALK P 77 LAB L501.4405 13-56 U/L Normal ALT 25 LAB L501.4600 0.20-1.00 mg/dL Normal T BILI 0.50 LAB L501.4700 0.00-0.30 mg/dL Normal D BILI 0.12 Performed By: #### L500.2500, L500.3400, L501.2450 #### [facility] [address] [place], [address] LIPASE Collected: 03/05/2018 Status: F Source: DIANNA 4:35 PM [facility] TYPE CODE TESTS RESULT OUT OF RANGE REFERENCE UNITS LAB L501.2450 73-393 U/L Normal LIPASE 91 Performed By: #### L500.2500, L500.3400, L501.2450 #### [facility] [address] [place], [address] Observed: 03/05/2018 Status: F Source: DIANNA CULTURE, BLOOD (WB) 4:35 PM [facility] RE[facility] BC No growth in 5 days. Performed By: #### M200.1000 #### [facility] [address] [place], [address] ABDOMEN/PELVIS W IV CONT Observed: 03/05/2018 Status: F Source: DIANNA ONLY 4:21 PM [facility] RE[facility] Imaging Services [address] [place] [address] Abdomen/Pelvis W IV Cont ONLY MR#: [id number] Acct: [id number] Name: MARY GONZALEZ Rep #: [id number] : 1985 F 32 From: Glenn Medina MD PCP: Cecilia Fenton DO Status: REG ER Study: Abdomen/Pelvis W IV Cont ONLY Date of Exam: 03/05/18 Exam# [id number] Ordering Dr: Vijay Salguero MD STUDY: CT ABDOMEN AND PELVIS WITH CONTRAST REASON FOR EXAM: Female, 32 years old. Right upper quadrant pain RADIATION DOSAGE (If Supplied By Facility): CTDIvol = ( 18.74 ) mGy, DLP = ( 1480.68 ) mGycm TECHNIQUE: Transaxial images were obtained from the dome of the diaphragm to the symphysis pubis without oral contrast. 100CC ml of Isovue 300 contrast was administered. Sagittal and coronal images were reconstructed. Individualized dose optimization techniques were used for this CT. COMPARISON: None. FINDINGS: The visualized lung bases are clear. The visualized portions of the heart and pericardium are within normal limits. There are no calcified gallstones present. The liver is within normal limits. There are no suspicious hepatic lesions. The spleen is normal in size. The pancreas is within normal limits. The adrenal glands are within normal limits. There are no obstructing renal stones. There is no hydronephrosis. There are no focal renal lesions. Normal visualized stomach. There is no bowel obstruction or inflammation. The appendix is visualized and appears normal. The aorta is normal in caliber. There is no abdominal or pelvic free air, free fluid, fluid collection or lymphadenopathy. There are no destructive osseous lesions. CT/Abdomen/Pelvis W IV Cont ONLY IMPRESSION: No acute abdominal or pelvic pathology. Electronically Signed: Glenn Medina, at 17:54 EDT Tel , Service support , CC: Vijay Salguero MD; Cecilia Fenton DO Tourist Information Assistant: Signed CHEST PA AND LATERAL Observed: 03/05/2018 Status: F Source: LINGLE 4:20 PM [facility] Imaging Services [address] [place] [address] Chest PA and Lateral MR#: [id number] Acct: [id number] Name: MARY GONZALEZ Rep #: [id number] : 1985 F 32 From: Glenn Medina MD PCP: Cecilia Fenton DO Status: REG ER Study: Chest PA and Lateral Date of Exam: 03/05/18 Exam# [id number] Ordering Dr: Vijay Salguero MD STUDY: X-RAY CHEST REASON FOR EXAM: Female, 32 years old. Fever TECHNIQUE: Frontal and lateral views of the chest COMPARISON: None. FINDINGS: The lungs are clear. There are no pleural effusions. There is no pneumothorax. The heart is normal in size. The visualized osseous structures are within normal limits. RAD/Chest PA and Lateral IMPRESSION: No acute thoracic pathology. Electronically Signed: Glenn Medina, at 17:56 EDT Tel , Service support , CC: Vijay Salguero MD; Cecilia Fenton DO Tourist Information Assistant: Signed EMERGENCY DEPARTMENT Observed: 02/01/2018 Status: F Source: LINGLE SUMMARY 1:50 AM [facility] Medical Records Department [address] [place] [address] Emergency Department Summary 02/01/18 0139 MR#: [id number] Acct: [id number] Name: MARY GONZALEZ Rep #: [id number] : 1985 32 From: Vijay Salguero MD PCP: Cecilia Fenton DO Status: DEP ER - ER Visit Summary Date of Service: 02/01/18 Chief Complaint: Fall off porch with right ear laceration History of Present Illness: The patient is a 32 F significant past medical history of depression and reflux. Patient slipped and tripped was falling off her porch hit her right arm and lacerated her right ear when she broke a plastic flowerpot. No LOC. She is on no blood thinners. No neck pain. Denies other injuries. Tetanus is up-to-date. Physical Examination: Well-appearing young female. Vital signs are stable afebrile. H EENT exam pupils round reactive light. Scalp nontender no hematomas. She has 5-6 cm laceration of the external ear that is in a figure of a 7. It is approximately 2-1/2 cm across the top and about 3 vertically down. Involves the skin and subcu tissue. I do not see any exposed cartilage. The ear canal is unremarkable and the tympanic membrane is intact without hemotympanum. There is superficial abrasions along the angle of her jaw that she is able to open close her mouth without any difficulty there are no dental injuries but she does have poor dentition. Neck nontender full range of motion. Lungs clear heart regular rate and rhythm chest wall nontender. Abdomen soft nontender. Pelvic girdle intact. She is moving all 4 extremities. Neurovascular intact. No deformities. Normal range of motion. The right medial bicep tricep region in the midportion of the right upper arm has some bruising and abrasions but she has full range of motion of the right shoulder, elbow, wrist and hand. The right hand is neurovascularly intact. There are no deformities. And no loss of strength or sensation. She is a strong radial pulse. Back is nontender. Neurologic exam is normal. GCS is 15. Test Results: None Emergency Department Course and Treatment: Right ear laceration repair. There was external ear. It was in the figure of a 7. The laceration involves the skin and subcu tissue. It is approximately 2-1/2 cm across the top and 3-4 cm vertically. There was some blood. But no heavy active bleeding. No infection. No foreign body. There was a flap. Locally anesthetized with let and then with Xylocaine. Once proper sac was obtained it was cleaned with Shur-Clens irrigated and explored and closed using Vicryl 6 simple interrupted sutures. Proper hemostasis wound closure obtained patient tolerated procedure well. She was told that these are absorbable sutures. Treatment Plan: Ice to the area. Tylenol and Motrin for pain. Keep the wound clean. Return if any problems. Disposition: Discharge Impression: Acute fall Acute right outer ear laceration with ER repair of 6 cm. Right upper extremity contusion and abrasion. This note was generated with [employer] dictation software. It may contain incorrect words, spelling, and punctuation that were not noted in review of the chart prior to signing ED Disposition - Plan for ED Patient: Chief Complaint: Laceration Referrals: Cecilia Fenton, [Primary Care Provider] - What to do if you have Problems For any increased pain, shortness of breath, bleeding, nausea or vomiting, chest pain, or any unexpected problems, contact your Primary Care Provider. Call [facility] ([phone]) or report to the closest Emergency Room. Call 911 if necessary. 02/01/18149 <Electronically signed by Vijay Salguero MD> Date Vijay Salguero MD Cosigner Signature (If Indicated): Date CC: Cecilia Fenton DO DISCHARGE INSTRUCTION Observed: 02/01/2018 Status: F Source: LINGLE 1:50 AM [facility] Medical Records Department [address] [place] [address] Discharge Instruction 02/01/18142 MR#: [id number] Acct: [id number] Name: MARY GONZALEZ Rep #: [id number] : 1985 32 From: Vijay Salguero MD PCP: Cecilia Fetnon DO Status: DEP ER ED Disposition - Plan for ED Patient: Disposition: Home or Assisted Living Chief Complaint: Laceration Instructions: ED Laceration Facial Sutr Tape, ED Contusion Upper Ext Referrals: Cecilia Fenton DO [Primary Care Provider] - 10-14 Days suture removal Additional Instructions: Ice to face and ear. And arm. Tylenol and Motrin for pain. Keep wound clean. Clean daily with soap and water or peroxide and water. Apply antibiotic ointment daily. These stitches should dissolve in 2 weeks if they are not you can have them taken out. What to do if you have Problems For any increased pain, shortness of breath, bleeding, nausea or vomiting, chest pain, or any unexpected problems, contact your Primary Care Provider. Call [facility] ([phone]) or report to the closest Emergency Room. Call 911 if necessary. 02/01/18149 <Electronically signed by Vijay Salguero MD> Date Vijay Uribeignjames Signature (If Indicated): Date CC: Cecilia Fenton DO ALLERGIES ALLERGIES DATE TYPE / CODE NAME / CODE REACTION SEVERITY SOURCE 06/14/2018 Drug No Known Unknown [facility] Allergy/4160 Allergies/F00 Hospital 60912(SNOMED [id number](RXNOR Repository CT) M) ENCOUNTERS ENCOUNTERS ADMIT/DISCHARGE ACCOUNT ADMITTING ENCOUNTER LOCATION SOURCE NUMBER CLASS 10/07/2018/ [id number] [facility] ing:ED Repository 06/14/2018/ [id number] Emergency [address] ing:ED Repository 03/05/2018/ [id number] Emergency [address] ing:ED Repository 02/01/2018/ [id number] Emergency [address] ing:ED Repository PAYERS PAYERS ENCOUNTER GUARANTOR PAYER SUBSCRIBER SOURCE 10/07/2018 MARY James Primary Insurance:[facility] MARY [place] [id number] [facility], Number: [id number] [address]Elf: [id number] Repository Date:[id number] [address] () [address] [place] [address] 10662YC: 10/07/2018 Secondary NOT GIVENUNK [place] Insurance:SELF PAY [facility] Number: Effective Repository Date:2018-10-07 06/14/2018 MARY James Primary Insurance:[facility] MARY [place]ust[place] [id number] [facility], Number: [id number] [facility]rise [facility] [address]Abk: [id number] Repository Date:[id number] B[address] () [address] [place] [address] 37987HT: 06/14/2018 Secondary NOT GIVENUNK [place] Insurance:SELF PAY [facility] Number: Effective Repository Date:2018-06-14 03/05/2018 MARY James Primary Insurance:[facility] MARY Bust[place] [id number] [facility] MAGALI PACK, Number: [id number] [facility] [address]Plb: [id number] Repository Date:[id number] B[address] () [address] [place] [address] [id number]: 03/05/2018 Secondary NOT GIVENUNK [place] Insurance:SELF PAY [facility] Number: Effective Repository Date:2018-03-05 02/01/2018 Mary Primary Insurance:[facility] Mary Bustamante [id number] [facility] MAGALI PACK, Number: [id number] [facility] [address]Fdt: [id number] Repository Date:[id number] B[address] () [address] [place] [address] [id number]: 02/01/2018 Secondary NOT GIVENUNK [place] Insurance:SELF PAY [facility] Number: Effective Repository Date:2018-02-01
== END 2018-10-07 19:10 | disposition home or self-care (01) ==
PROVIDERS: Emergency Provider Emergency Medicine
DX: S46.212A Strain of muscle, fascia and tendon of other parts of biceps, left arm, initial encounter (principal); X58.XXXA Exposure to other specified factors, initial encounter; Y93.9 Activity, unspecified; Y92.9 Unspecified place or not applicable; Y99.9 Unspecified external cause status; E66.9 Obesity, unspecified; F17.200 Nicotine dependence, unspecified, uncomplicated; Z79.899 Other long term (current) drug therapy
CPT/HCPCS: 73030; 99284

== ENCOUNTER 2018-11-02 04:56 | Emergency (ER) | payer MEDICAID, SELFPAY ==
[2018-11-02 04:57] VITALS: BP 205/110; PULSE 86; RESP 18; TEMP 36.3; O2SAT 97; BMI 53.9
--- NOTE | 2018-11-02 05:21 | ED.VISSUMM ---
- ER Visit Summary Date of Service: 11/02/18 Chief Complaint: Dental pain History of Present Illness: The patient is a 33 F who presents with dental pain. Is been present for 3 days. She can planes of right lower dental pain. She did take naproxen with some mild relief. No fevers no facial or jaw swelling. Physical Examination: Afebrile vitals notable for initial blood pressure 205/110 but when repeated 162/85 vitals otherwise unremarkable Patient has widespread dental decay prior dental extractions she has significant decay of the right mandibular first and second premolars first and second molars she does not have focal dental tenderness on percussion she does not have a focal dental abscess Test Results: Not indicated Emergency Department Course and Treatment: Patient was given a prescription for pen VK and naproxen. She was advised to follow-up with a dentist and was given a list of dental clinics. Patient discharged. Treatment Plan: [] Disposition: Discharge Impression: Dental pain This note was generated with [employer] dictation software. It may contain incorrect words, spelling, and punctuation that were not noted in review of the chart prior to signing ED Disposition - Plan for ED Patient: Referrals: Cecilia Fenton DO [Primary Care Provider] -
--- NOTE | 2018-11-02 05:23 | ED.DEP ---
ED Disposition - Plan for ED Patient: Instructions: ED Tooth Pain Prescriptions: Naproxen [Naprosyn] 500 mg PO BID #20 tab Penicillin V Potassium 500 mg PO 4X/DAY #40 tab Referrals: Cecilia Fenton DO [Primary Care Provider] -
[2018-11-02 05:26] VITALS: BP 162/85
== END 2018-11-02 05:27 | disposition home or self-care (01) ==
PROVIDERS: Emergency Provider Emergency Medicine
DX: K02.9 Dental caries, unspecified (principal); K21.9 Gastro-esophageal reflux disease without esophagitis; F32.9 Major depressive disorder, single episode, unspecified; Z72.0 Tobacco use; Z79.899 Other long term (current) drug therapy
CPT/HCPCS: 99282

== ENCOUNTER → 2020-05-09 16:16 | Outpatient (CLI) | payer MEDICAID, SELFPAY ==
[2020-05-10 09:31] LABS: HIV - WCH Non-Reactive (Nonreactive); Hepatitis B Surface Antigen Non-Reactive (Nonreactive); Hepatitis C Antibody Non-Reactive (Nonreactive)
[2020-05-11 02:16] LABS: Rapid Plasmin Reagin (RPR) NONREACTIVE (NONREACTIVE)
[2020-05-12 03:07] LABS: Chlamydia By Nucleic Acid AMP Negative (Negative)
[2020-05-12 13:53] LABS: Gonococcus By Nucleic Acid AMP Negative (Negative)
[2020-05-12 16:34] LABS: HPV APTIMA, High Risk Negative (Negative)
== END ==
PROVIDERS: Visit Provider Obstetrics & Gynecology
DX: Z12.4 Encounter for screening for malignant neoplasm of cervix (principal); Z11.3 Encounter for screening for infections with a predominantly sexual mode of transmission
CPT/HCPCS: 36415; 86592; 86703; 86803; 87340; 87491; 87591; 87624; 88175; G0145

== ENCOUNTER 2020-07-06 22:33 | Emergency (ER) | payer MEDICAID, SELFPAY ==
[2020-07-06 22:33] VITALS: BP 204/121; PULSE 90; RESP 17; TEMP 36.6; O2SAT 100; BMI 53.7
[2020-07-06 23:09] VITALS: BP 159/100; PULSE 84; RESP 16; O2SAT 96; O2SAT 98
--- NOTE | 2020-07-06 23:15 | RAD_ITS ---
HISTORY: Cough EXAMINATION/TECHNIQUE: XR Chest 1 View: Portable upright COMPARISON: 03/05/2018 FINDINGS: Portable technique. No focal infiltrate. Normal heart size. No vascular congestion or pleural effusion. No pneumothorax. RAD/Chest 1 View (Portable) IMPRESSION: No acute cardiopulmonary disease. at 2353 Reported and signed by: Fareed Sharp MD Electronically Signed: Fareed Sharp, at 23:52 EDT Tel , Service support ,
--- NOTE | 2020-07-07 00:02 | ED.VIS.URI ---
History of Present Illness Chief Complaint: Cold Sx Informant: Patient Onset: Days - 3 Context: Gradual Onset Timing: Continuous Quality: SCALE ATTENDANT cough Location: ? chest Current Severity: Moderate Maximum Severity: Moderate Worsened by: - - nothing in particular Relieved by: - - cold medication temporarily Associated Symptoms: Nasal Congestion, Nonproductive cough. Negative for: Headache, Sinus Pressure, Myalgias, Nausea, Vomiting, Diarrhea, Shortness of Breath, Chest Pain, Hemoptysis Narrative: Patient presents during the national coronavirus emergency declaration/pandemic. She denies any known contact with anyone infected with COVID-19. She denies traveling out of the immediate area recently. She has had a couple days of cold symptoms without any fevers, chills, headaches, myalgias, or loss of taste/smell. She has had runny nose, congestion, nonproductive cough. She works at a [employer]. She goes to other places locally, she states she always wears a mask. She has never been tested for COVID-19, nor had at that she knows of. Past Medical History - Allergies and Home Meds Allergies/Adverse Reactions: Allergies No Known Allergies Allergy (Verified 07/06/20 22:35) Primary Care Physician: Cecilia Fenton DO [Primary Care Provider] - Past Medical History: None Smoking Status: Current every day smoker Review of Systems General: Denies: Chills, Fever, Sweats Eyes: Denies: Visual changes - bilaterally, Diplopia ENT: Reports: Rhinorrhea. Denies: Bilateral ear pain, Sore throat Cardiovascular: Denies: Chest pain, Palpitations Respiratory: Reports: Cough. Denies: Dyspnea, Sputum, Dyspnea on exertion Gastrointestinal: Denies: Abdominal pain, Nausea, Vomiting, Diarrhea, Melena, Hematochezia Genitourinary: Denies: Dysuria, Hematuria, Frequency Musculoskeletal: Denies: Myalgias, Back pain, Extremity Pain Skin: Denies: Rash, Wounds Neurological: Denies: Headache, Weakness, Numbness Physical Exam Vital Signs/Narrative: Vital Signs Temp Pulse Resp BP Pulse Ox 07/06/20 23:09 84 16 159/100 H 98 07/06/20 22:33 97.9 F 90 17 204/121 H 100 Inital Vital Signs reviewed: Yes General: Well nourished, Well developed, Obese, - - NAD Head: Normocephalic, Atraumatic Eyes: Perrl, EOMI Nose: Normal Inspection, No Rhinorrhea Mouth/Throat: Normal Inspection, Airway Patent Neck: Supple, Nontender, No Lymphadenopathy Cardiovascular: Regular rate, Regular rhythm, No murmurs. Negative for: Tachycardia Respiratory: No distress, CTA bilaterally, Chest nontender Abdomen: Soft, Nontender, Nondistended, Normal bowel sounds Back: Nontender, Normal Inspection Extremities: Nontender, No edema Skin: Normal color, No rash Neurological: Alert, Oriented x3, Cranial nerves II-XII grossly intact, Normal Strength, Normal Sensation Psychological: Normal affect, Normal Mood Diagnostic/Tx/Re-eval Clinical Impression(s) from Imaging Studies Chest X-Ray 07/06/20 23:15 IMPRESSION: No acute cardiopulmonary disease. at 2353 Reported and signed by: Fareed Sahrp MD Electronically Signed: Fareed Sharp, at 23:52 EDT Tel , Service support , - Medical Decision Making Her initial blood pressure was very high. Repeat blood pressure 159/100. I think this is incidental, she was advised to follow-up with her doctor as an outpatient regarding this. We did a COVID-19 swab, it will be a send out and will not return today. She was given information on how to access her results and a work note in the meantime as she will need to quarantine until it returns. She does have very nonspecific upper respiratory infection symptoms, however with the variable presentation of COVID-19, it needs to be ruled out. Bpvi-olt-sxikgly cold medicines as needed until then and she is comfortable with that plan. ED Disposition - Plan for ED Patient: Disposition: Home or Assisted Living Diagnosis: Viral upper respiratory infection, HTN (hypertension) Instructions: ED Upper Resp Infec No Abx Tx, ED HBP No Tx Referrals: Cecilia Fenton DO [Primary Care Provider] - As Needed Additional Instructions: See additional quarantine instructions regarding the possibility of COVID-19 until your swab returns. Make sure you follow-up with your doctor to get your blood pressure rechecked, it was 159/100 here.
[2020-07-07 00:08] VITALS: BP 165/75; PULSE 84; RESP 15; O2SAT 98
== END 2020-07-07 00:22 | disposition home or self-care (01) ==
PROVIDERS: Emergency Provider Emergency Medicine
DX: J06.9 Acute upper respiratory infection, unspecified (principal); I10 Essential (primary) hypertension; E66.9 Obesity, unspecified; F17.200 Nicotine dependence, unspecified, uncomplicated; Z79.899 Other long term (current) drug therapy
CPT/HCPCS: 71045; 87635; 99283; U0003

== ENCOUNTER 2020-08-02 14:40 | Emergency (ER) | payer MEDICAID, SELFPAY ==
[2020-08-02 14:41] VITALS: BP 158/121; PULSE 80; RESP 16; TEMP 35.9; O2SAT 99; BMI 51.7
--- NOTE | 2020-08-02 15:00 | RAD_ITS ---
STUDY: X-RAY - LEFT ANKLE REASON FOR EXAM: Female, 35 years old. FELL AND LANDED ON LEFT SIDE TECHNIQUE: 3 view(s) of the ankle. COMPARISON: None. FINDINGS: Normal visualized distal tibia and fibula. Normal medial and lateral malleoli. Normal tibiotalar articulation and ankle mortise. Calcaneal spurs. The visualized subtalar, talonavicular, calcaneocuboid and tarsal articulations are normal. Diffuse soft tissue swelling. RAD/Ankle min 3 Views IMPRESSION: Diffuse soft tissue swelling. Calcaneal spurs. Electronically Signed: Khoi Veronica, at 15:29 EST , Service support ,
--- NOTE | 2020-08-02 15:00 | RAD_ITS ---
STUDY: X-RAY - LEFT FOOT CLINICAL: Female, 35 years old. FELL AND LANDED ON LEFT SIDE TECHNIQUE: 3 view(s) of the foot. COMPARISON: None. FINDINGS: There is an enthesophyte involving the posterior superior calcaneus at the site of insertion of the Achilles tendon. Plantar spur. Normal visualized subtalar, talonavicular, calcaneocuboid, tarsal and tarsometatarsal articulations. Normal metatarsi. There is degenerative arthrosis of the metatarsophalangeal joint of the hallux . Normal tibial and fibular sesamoid bones. Normal interphalangeal joint of the great toe. Normal phalanges of the great toe. Normal second through fifth metatarsophalangeal joints. Normal interphalangeal joints and phalanges of the lesser toes. Soft tissue swelling. RAD/Foot min 3 Views IMPRESSION: Calcaneal spurs. Soft tissue swelling. Electronically Signed: Khoi Veronica, at 15:30 EST , Service support ,
--- NOTE | 2020-08-02 15:53 | ED.VIS.GEN ---
History of Present Illness Chief Complaint: Lower Extremity Injury Informant: Patient Narrative: And states that last evening she stepped off of her stoop onto the side of her left foot resulting in inversion injury. She notes pain around the lateral malleolus. She has been able to bear weight but painful. Past Medical History - Allergies and Home Meds Allergies/Adverse Reactions: Allergies No Known Allergies Allergy (Verified 08/02/20 14:48) Primary Care Physician: Cecilia Fenton DO [Primary Care Provider] - 10-14 Days if not better Past Medical History: - - Hypertension GERD Surgical History: noncontributory Smoking Status: Current every day smoker Drugs: None Review of Systems General: Denies: Chills, Fever, Sweats Eyes: Denies: Visual changes - bilaterally, Diplopia ENT: Denies: Rhinorrhea, Sore throat Cardiovascular: Denies: Chest pain, Palpitations Respiratory: Denies: Dyspnea, Cough, Dyspnea on exertion Gastrointestinal: Denies: Abdominal pain, Nausea, Vomiting, Diarrhea, Melena, Hematochezia Genitourinary: Denies: Dysuria, Hematuria, Frequency Musculoskeletal: Reports: Extremity Pain. Denies: Back pain Skin: Denies: Rash, Wounds Neurological: Denies: Headache, Weakness, Numbness Physical Exam Vital Signs/Narrative: Vital Signs Temp Pulse Resp BP Pulse Ox 08/02/20 14:41 96.6 F L 80 16 158/121 H 99 Inital Vital Signs reviewed: Yes General: Well nourished, Well developed, Obese, No Acute Distress Head: Normocephalic, Atraumatic Eyes: Perrl, EOMI ENT: Moist mucous membranes, No rhinorrhea Neck: Supple, Nontender Cardiovascular: Regular rate, Regular rhythm, No murmurs Respiratory: No distress, CTA bilaterally, Chest nontender Abdomen: Soft, Nontender, Nondistended, Normal bowel sounds Back: Nontender, Normal Inspection Extremities: Edema - Bilateral lower extremity edema, - - Tender palpation of the lateral malleolus. No fifth metatarsal pain. No pain over the midfoot. Achilles palpates intact with negative Solorio's. No proximal fibular pain. Skin: Normal color, No rash Neurological: Alert, Oriented x3, Cranial nerves II-XII grossly intact, Normal Strength, Normal Sensation Psychological: Normal affect, Normal Mood Diagnostic/Tx/Re-eval - Medical Decision Making X-rays of the foot and ankle were negative for fracture. Patient will be placed in Abdulaziz wrap and given crutches. Instructions to follow-up with primary care in 10 to 14 days if not improved. ED Disposition - Plan for ED Patient: Disposition: Home or Assisted Living Diagnosis: Left ankle sprain Instructions: ED Sprain Ankle W X Ray Referrals: Cecilia Fenton DO [Primary Care Provider] - 10-14 Days if not better
== END 2020-08-02 16:25 | disposition home or self-care (01) ==
PROVIDERS: Emergency Provider Emergency Medicine
DX: S93.402A Sprain of unspecified ligament of left ankle, initial encounter (principal); X50.1XXA Overexertion from prolonged static or awkward postures, initial encounter; Y93.9 Activity, unspecified; Y92.9 Unspecified place or not applicable; Y99.9 Unspecified external cause status; I10 Essential (primary) hypertension; K21.9 Gastro-esophageal reflux disease without esophagitis; E66.9 Obesity, unspecified; F17.200 Nicotine dependence, unspecified, uncomplicated; Z79.899 Other long term (current) drug therapy
CPT/HCPCS: 73610; 73630; 99283

== ENCOUNTER 2022-03-07 15:41 | Emergency (ER) | payer MEDICAID, SELFPAY ==
[2022-03-07 15:42] VITALS: BP 134/90; PULSE 83; PULSE 87; RESP 16; TEMP 35.8; O2SAT 98; O2SAT 99; BMI 51.5
--- NOTE | 2022-03-07 15:59 | EDS_ITS ---
HPI History of Present Illness Chief Complaint: Lower Extremity Injury Informant: patient Narrative Narrative: 36-year-old female states that on Friday of this week she slipped on some water on her bathroom floor and she fell onto her bilateral knees. She notes that the left knee continues to hurt pops. She states that the right knee seems better. She has been able to bear weight but notes continued pain PFSH PFSH Medical History (Updated 03/07/22 @ 16:[address] Ramirez Mejias DO) Depression GERD (gastroesophageal reflux disease) Medical History no medical history Home Medications omeprazole 40 mg capsule,delayed release 40 mg PO DAILY 10/07/18 [History Last Taken Unknown] escitalopram oxalate 10 mg tablet 20 mg PO DAILY 11/02/18 [History Last Taken Unknown] norethindrone (contraceptive) 0.35 mg tablet 0.35 mg PO DAILY 07/06/20 [History Last Taken Unknown] varenicline 0.5 mg (11)-1 mg (42) tablets in a dose pack 1 cap PO BID 07/06/20 [History Last Taken Unknown] Allergy/AdvReac Type Severity Reaction Status Date / Time No Known Allergies Allergy Verified 08/02/20 14:48 Social History (Updated 03/07/22 @ 16:[address] Ramirez Mejias DO) current gender identity: female Smoking Status: Current every day smoker tobacco type: cigarettes substance use type: does not use ROS ROS ED Constitutional Constitutional ED: Denies chills or weight loss Eyes Eyes: Denies change in vision or diplopia ENT ENT ED: Denies ear pain, rhinorrhea or sore throat Cardiovascular Cardiovascular: Denies chest pain, orthopnea, palpitations or racing heartbeat Respiratory/Chest Respiratory/Chest: Denies cough, dyspnea or orthopnea Gastrointestinal Gastrointestinal: Denies abdominal pain, diarrhea, nausea or vomiting Genitourinary Genitourinary ED: Denies dysuria, hematuria or urinary frequency Musculoskeletal Musculoskeletal: Reports other Details: See history of present illness ; Denies arthralgias or myalgias Integumentary Denies abscess or rash Neurologic Neurologic: Denies headache(s) or weakness Psychiatric Psychiatric: Denies anxiety, depression, suicidal ideation or suicidal thoughts Endocrine Endocrinology: Denies polydipsia, polyphagia or polyuria Allergic/Immunologic Allergic/Immunologic ED: Denies mouth swelling, tongue swelling or urticaria EXAM Physical Exam Const Vital Signs: 03/07/22 15:42 03/07/22 15:42 Temperature 96.5 F L 96.5 F L Temperature Source Temporal Temporal Pulse Rate 87 83 Respiratory Rate 16 16 Blood Pressure 134/90 H 134/90 H Blood Pressure Mean 104 104 Pulse Ox 98 99 Oxygen Delivery Method Room Air Room Air Positive well nourished, well developed and obese General Appearance ED: well developed Nutritional Appearance: obese HEENT Reports normocephalic, head/scalp atraumatic and moist mucous membranes Eyes PERRL and EOMs intact bilaterally Neck no lymphadenopathy, supple and no JVD Resp normal respiratory effort and clear to auscultation bilaterally Cardio regular rate, regular rhythm and no murmurs GI normal to inspection, nondistended, normoactive bowel sounds and non-tender Palpation: soft Back/Spine no CVA tenderness and normal ROM Extremity Extremity Narrative: Extensor mechanism is intact of the left knee. There is no ecchymosis seen. There is no palpable effusion. Ligamentous exam appears stable though she has pain medially with stressing. General Extremety ED: Negative for edema General Extremity: Negative for edema Neuro oriented x3 and CN's II-XII intact bilaterally Sensorium / Orientation: alert Motor Exam: strength 5/5 throughout Psych mental status grossly normal Mood & Affect: Negative for depressed or tearful Skin no rashes or lesions noted and no wounds MDM MDM MDM Narrative Medical decision making narrative: My interpretation of the plain films of the left knee is no acute fracture or effusion noted. We will Abdulaziz wrap the leg have the patient rest ice anti- inflammatories. She is to follow-up 10 to 14 days if not improved Radiography Diagnostic Testing: Clinical Impression(s) from Imaging Studies Knee X-Ray 03/07/22 16:00 IMPRESSION: No acute fracture or dislocation identified in the left knee. Electronically Signed: Joanne Chavez MD at 16:14 EDT , Discharge Plan Triage Chief Complaint: Lower Extremity Injury ED Provider: Ramirez Mejias Dx/Rx/DC Orders Clinical Impression: Strain of left knee, Contusion of knee, left Instructions: How Your Knee Works, Bone Contusion Prescriptions: No Action omeprazole 40 MG Capsule.Dr 40 mg PO DAILY escitalopram oxalate 10 MG tablet 20 mg PO DAILY norethindrone (contraceptive) 0.35 MG tablet 0.35 mg PO DAILY varenicline 1 EACH tablets,dose pack 1 cap PO BID Primary Care Provider: Cecilia Fenton Referrals: Cecilia Fenton, [Primary Care Provider] - 10-14 Days if not better Disposition Disposition: Home, Self Care
--- NOTE | 2022-03-07 16:00 | RAD_ITS ---
HISTORY injury. TECHNIQUE: XR Knee Complete 4 Views or More. COMPARISON: None. FINDINGS: BONES : No acute fracture identified. Mineralization unremarkable. JOINTS: No dislocation. Degenerative changes with mild medial and patellofemoral joint space narrowing and small osteophytes. RAD/Knee 4 or More Views IMPRESSION: No acute fracture or dislocation identified in the left knee. Electronically Signed: Joanne Chavez MD at 16:14 EDT ,
== END 2022-03-07 16:29 | disposition home or self-care (01) ==
PROVIDERS: Emergency Provider Emergency Medicine; Visit Provider Emergency Medicine
DX: S86.912A Strain of unspecified muscle(s) and tendon(s) at lower leg level, left leg, initial encounter (principal); W01.10XA Fall on same level from slipping, tripping and stumbling with subsequent striking against unspecified object, initial encounter; Y92.002 Bathroom of unspecified non-institutional (private) residence as the place of occurrence of the external cause; K21.9 Gastro-esophageal reflux disease without esophagitis; F17.210 Nicotine dependence, cigarettes, uncomplicated; Z79.899 Other long term (current) drug therapy
CPT/HCPCS: 73564; 99282

== ENCOUNTER 2022-07-03 11:33 | Emergency (ER) | payer MEDICAID, SELFPAY ==
[2022-07-03 11:34] VITALS: BP 138/92; PULSE 87; RESP 14; TEMP 36.6; O2SAT 100; BMI 53.3
--- NOTE | 2022-07-03 12:12 | EKG12_ITS ---
Test Reason : CP Blood Pressure : / mmHG Vent. Rate : 088 BPM Atrial Rate : 088 BPM P-R Int : 136 ms QRS Dur : 080 ms QT Int : 376 ms P-R-T Axes : 008 052 013 degrees QTc Int : 454 ms Normal sinus rhythm Normal ECG Confirmed by EMILIO BUSTOS, CATRINA ([id number]), index editor ORLANDO GÓMEZ ([id number]) on 07/04/2022 2:03:37 P M Referred By: JOSÉ MIGUEL Confirmed By:TOM JHAVERI MD
[2022-07-03] MEDS: Ketorolac 30 MG/ML Syringe IV (12:25)
[2022-07-03 12:29] LABS: Absolute Lymphocyte Count 2.06 X10^3/uL (0.83-4.51); Absolute Neutrophil Count 4.7 X10^3/uL (2.0-7.7); Basophil# 0.05 X10^3/uL; Basophil% 0.7 % (0-1); Eosinophil# 0.26 X10^3/uL; Eosinophils% 3.4 % (0-5); Hematocrit 40.9 % (37-47); Hemoglobin 13.2 g/dL (12.0-15.0); Lymphocyte # 2.06 X10^3/ul (0.83-4.51); Lymphocyte % 26.9 % (19-41); Mean Corp Hgb Conc 32.3 g/dL (32-36); Mean Platelet Vol. 10.9 fl (6.2-12.0); Monocyte% 7.8 % (0-10); NRBC Flagged by Analyzer 0 % (0-5); Neutrophil # 4.66 X10^3/uL (2.7-7.7); Neutrophil % 60.8 % (47-70); Platelet Count 233 K/mm3 (150-450); RBC Distribution Width CV 14.1 % (11.6-14.6); RBC Distribution Width SD 48.3 fl (35.1-43.9); White Blood Count 7.7 K/mm3 (4.4-11.0)
--- NOTE | 2022-07-03 12:32 | ED.VIS.CHEST ---
HPI History of Present Illness Chief Complaint: Chest Pain Onset/Context/Timing Onset: Today Activity at onset: sudden Timing: Continuous Quality: Positive for Sharp Location: Left Chest Worsened By: Movement of Torso and - (Bending) Relieved By: Remaining Still Associated Symptoms: Negative for Nausea, Vomiting, Diaphoresis, Dyspnea, Cough, Fever, Lightheadedness, Acid Reflux or Palpitations Narrative Narrative: Patient presents with chest pain that began this morning when she woke up. Patient states it began rather suddenly this morning. Patient states that yesterday she had pain in her left scapular area that radiated down her back to her lower lumbar area. Patient states that today she has had sharp pain in the left upper chest. Patient states it radiates into the left side of her neck. Patient states it is worse with movement and bending. Patient states it is better whenever she is able to remain still. Patient denies any nausea or vomiting. Patient denies any diaphoresis. Patient denies any shortness of breath or cough. CVD Risk Factors: Positive for Smoking; Negative for Hypertension, Diabetes, Hypercholesterolemia or Family History 1' </=55 PE Risk Factors: Negative for Recent Travel/Surgery, Recent Immobilization, Prior DVT or PE, Cancer or OCP + Smoking + >/=35 PFSH PFSH Medical History (Updated 07/03/22 @ 13:[address] Quintin Rodríguez DO) Depression GERD (gastroesophageal reflux disease) Home Medications omeprazole 40 mg capsule,delayed release 40 mg PO DAILY 10/07/18 [History Last Taken Unknown] escitalopram oxalate 10 mg tablet 20 mg PO DAILY 11/02/18 [History Last Taken Unknown] norethindrone (contraceptive) 0.35 mg tablet 0.35 mg PO DAILY 07/06/20 [History Last Taken Unknown] varenicline 0.5 mg (11)-1 mg (42) tablets in a dose pack 1 cap PO BID 07/06/20 [History Last Taken Unknown] ibuprofen 600 mg tablet 600 mg PO Q8H PRN PRN pain #20 TABLETS 07/03/22 [Rx Last Taken Unknown] Allergy/AdvReac Type Severity Reaction Status Date / Time No Known Allergies Allergy Verified 07/03/22 11:34 Surgical History (Updated 07/03/22 @ 12:[address] Quintin Rodríguez DO) History of surgical removal of ganglion cyst Hx of tonsillectomy Social History (Updated 03/07/22 @ 16:[address] Ramirez Mejias, DO) Smoking Status: Current every day smoker tobacco type: cigarettes substance use type: does not use ROS ROS ED Constitutional Constitutional ED: Denies chills or fever(s) Eyes Eyes: Denies blurry vision or change in vision ENT ENT ED: Denies rhinorrhea or sore throat Cardiovascular Cardiovascular: Reports chest pain; Denies palpitations Respiratory/Chest Respiratory/Chest: Denies cough or dyspnea Gastrointestinal Gastrointestinal: Denies abdominal pain, nausea or vomiting Genitourinary Genitourinary ED: Denies dysuria or hematuria Musculoskeletal Musculoskeletal: Reports back pain and neck pain Integumentary Denies abscess or rash Neurologic Neurologic: Denies headache(s) or weakness Allergic/Immunologic Allergic/Immunologic ED: Denies mouth swelling or urticaria EXAM Physical Exam Const Vital Signs: 07/03/22 11:34 07/03/22 12:12 Temperature 98 F Temperature Source Temporal Pulse Rate 87 Respiratory Rate 14 Respiratory Effort Normal Non-Labored Blood Pressure 138/92 H Blood Pressure Mean 107 Pulse Ox 100 Oxygen Delivery Method Room Air Positive well nourished, well developed and obese General Appearance ED: well developed and NAD Nutritional Appearance: obese HEENT normocephalic and atraumatic Eyes PERRL and EOMs intact bilaterally Neck supple and no JVD Chest Wall Chest: tenderness pectoral muscle left Resp normal respiratory effort and clear to auscultation bilaterally Effort and Inspection: Negative for respiratory distress Cardio regular rate, regular rhythm and no murmurs GI normal to inspection, nondistended, normoactive bowel sounds, soft to palpation, non-tender and non-distended Extremity normal to inspection General Extremety ED: Negative for edema or tenderness General Extremity: Negative for edema Neuro oriented x3, CN's II-XII intact bilaterally and no sensory deficits noted Sensorium / Orientation: awake and alert Motor Exam: strength 5/5 throughout Psych mental status grossly normal Heart Score History: Slightly/Non-Suspicious ECG: Normal Age: </= 45 years Risk Factors: 1 or 2 Risk Factors Troponin: </= Normal Limit Score: 1 MDM MDM MDM Narrative Medical decision making narrative: EKG was obtained. On my interpretation, it showed a normal sinus rhythm with a rate of 88. MA interval, QRS interval, and QTc intervals were all normal. [place] was normal. There are no acute ST or T wave changes. CBC was within normal limits. Basic metabolic profile was within normal limits. High-sensitivity troponin was normal. Patient was given injection of Toradol. Patient felt better on reevaluation. Patient was given a prescription for ibuprofen. Patient was instructed to use ice to the area. Patient has a HEART score of 1. Patient was advised that this is low risk for acute cardiac event. Patient patient was instructed to follow-up with her primary care physician in 5 to 7 days. Patient understood and was agreeable with the plan. All questions were answered. Lab Data Attestation: I reviewed the patient's lab results. Labs: Laboratory Results - last 24 hr 07/03/22 07/03/22 12:15 12:15 WBC 7.7 RBC 4.40 Hgb 13.2 Hct 40.9 MCV 93.0 MCH 30.0 MCHC 32.3 RDW Std Deviation 48.3 H RDW Coeff of Anand 14.1 Plt Count 233 MPV 10.9 Immature Gran % (Auto) 0.400 Neut % (Auto) 60.8 Lymph % (Auto) 26.9 Harris % (Auto) 7.8 Eos % (Auto) 3.4 Baso % (Auto) 0.7 Absolute Neuts (auto) 4.7 Absolute Lymphs (auto) 2.06 Nucleated RBC % 0 Sodium 141 Potassium 4.1 Chloride 111 H Carbon Dioxide 25.0 Anion Gap 5 BUN 11 Creatinine 0.68 Estim Creat Clear Calc 117.23 Est GFR (MDRD) Af Amer 124 Est GFR (MDRD) Non-Af 103 BUN/Creatinine Ratio 16.2 Glucose 99 Calcium 8.8 Troponin I High Sens 4 EKG Initial EKG: Attestation: I personally reviewed and interpreted this EKG as follows: Interpretation: Sinus Rhythm (88) and No Acute Injury Pattern Prior EKG tracings: not available for review Prior: No Prior Discharge Plan Triage Chief Complaint: Chest Pain ED Provider: Quintin Rodríguez Dx/Rx/DC Orders Clinical Impression: Chest pain, Morbid obesity with BMI of 50.0-59.9, adult Instructions: ED Chest Wall Strain Prescriptions: New ibuprofen 600 mg tablet 600 mg PO Q8H PRN PRN (Reason: pain) Qty: 20 0RF No Action omeprazole 40 MG capsule,delayed release(DR/EC) 40 mg PO DAILY escitalopram oxalate 10 MG tablet 20 mg PO DAILY norethindrone (contraceptive) 0.35 MG tablet 0.35 mg PO DAILY varenicline 1 EACH tablets,dose pack 1 cap PO BID Stand Alone Forms: ED Work / School Excuse Primary Care Provider: Cecilia Fenton Referrals: Cecilia Fenton DO [Primary Care Provider] - 5-7 Days Disposition Disposition: Home, Self Care
[2022-07-03 12:43] LABS: Anion Gap 5 (5-15); BUN 11 mg/dL (7-18); BUN/Creat Ratio 16.2 RATIO (10-20); Calcium,Total 8.8 mg/dL (8.5-10.1); Chloride 111 mmol/L (98-107); Creatinine, Serum 0.68 mg/dL (0.55-1.02); EST Glomerular Filtration Rate 103 mL/min (>60); Est Glom Filt Rate - Afr Amer 124 mL/min (>60); Estimated Creatinine Clearance 117.23 ml/min; Glucose 99 mg/dL (74-106); Potassium 4.1 mmol/L (3.5-5.1); Sodium Level 141 mmol/L (136-145); Troponin-I HS 4 pg/mL (3.0-54.0)
[2022-07-03 13:54] VITALS: PULSE 61; RESP 18
== END 2022-07-03 13:55 | disposition home or self-care (01) ==
PROVIDERS: Emergency Provider Emergency Medicine; Visit Provider Emergency Medicine
DX: R07.9 Chest pain, unspecified (principal); E66.01 Morbid (severe) obesity due to excess calories; Z68.43 Body mass index [BMI] 50.0-59.9, adult; M54.2 Cervicalgia; F32.A Depression, unspecified; K21.9 Gastro-esophageal reflux disease without esophagitis; F17.210 Nicotine dependence, cigarettes, uncomplicated; Z79.899 Other long term (current) drug therapy
CPT/HCPCS: 80048; 84484; 85025; 93005; 96374; 99283; A4216

== ENCOUNTER 2023-02-03 00:10 | Emergency (ER) | payer MEDICAID, SELFPAY ==
[2023-02-03 00:12] VITALS: BP 139/81; PULSE 94; RESP 18; TEMP 36.5; O2SAT 99; BMI 56.4
--- NOTE | 2023-02-03 00:29 | ED.VIS.FALL ---
HPI HPI - Fall History of Present Illness Chief Complaint: Fall Informant: patient Occured/Mechanism Occurred: Yesterday Mechanism/Context: Yes slip Narrative: States she slipped on water at [facility] falling to the floor, she thinks on her left side. Pain/Injury Location: Right upper arm, left low back Quality of Pain: Aching Current Severity: Mild Maximum Severity: Moderate Worsened by: Movement, walking Relieved by: Rest and remaining still Associated Symptoms Associated Symptoms: Negative for Parasthesias, Weakness, Loss of function, Inability to ambulate, Loss of consciousness or Amnesia Narrative Narrative: Patient presents 24 hours or so after she had a fall at [facility]. She has persistent pain and presents to be evaluated. She states her right upper arm hurts when she abducts at the shoulder and she does not have pain in the shoulder. She also has pain in her left low back that is radiating all the way down the left leg and this is something new since the fall that she did not have prior to this. No other injuries reported, except she states her left upper extremity is a little sore throughout, in her left knee is a little sore when she walks on it. [facility] Medical History Depression GERD (gastroesophageal reflux disease) Home Medications omeprazole 40 mg capsule,delayed release 40 mg PO DAILY 10/07/18 [History Last Taken Unknown] citalopram 40 mg tablet 40 mg PO DAILY 02/03/23 [History Last Taken Unknown] ibuprofen 600 mg tablet 600 mg PO Q8H PRN PRN pain #20 TABLETS 02/03/23 [Rx Last Taken Unknown] Allergy/AdvReac Type Severity Reaction Status Date / Time No Known Allergies Allergy Verified 07/03/22 11:34 Surgical History (Updated 07/03/22 @ 12:[address] Quintin Rodríguez, ) History of surgical removal of ganglion cyst Hx of tonsillectomy Social History Smoking Status: Current every day smoker tobacco type: cigarettes substance use type: does not use ROS ROS ED Constitutional Constitutional ED: Denies chills or fever(s) Eyes Eyes: Denies change in vision or diplopia Cardiovascular Cardiovascular: Denies chest pain Gastrointestinal Gastrointestinal: Denies abdominal pain or vomiting Genitourinary Genitourinary ED: Denies hematuria Musculoskeletal Musculoskeletal: Reports back pain and extremity pain; Denies neck pain Integumentary Denies Abrasions, rash or wounds Neurologic Neurologic: Denies headache(s), paresthesias or weakness EXAM Physical Exam Const Vital Signs: 02/03/23 00:12 02/03/23 01:03 Temperature 97.7 F L Temperature Source Temporal Pulse Rate 94 Respiratory Rate 18 Respiratory Effort Normal Non-Labored Respiratory Depth Normal Respiratory Pattern Normal Blood Pressure 139/81 H Blood Pressure Mean 100 Pulse Ox 99 Oxygen Delivery Method Room Air Room Air Positive well nourished, well developed and obese General Appearance ED: well developed and NAD Nutritional Appearance: obese HEENT Reports normocephalic atraumatic Eyes PERRL and EOMs intact bilaterally Neck full ROM and supple Chest Wall inspection of chest normal and palpation of chest normal Resp normal respiratory effort and clear to auscultation bilaterally Back/Spine normal ROM and normal to inspection Back/Spine Narrative: Mild midline lumbar tenderness L4-L5 area. No palpable step-off but exam limited by morbid obesity. Also tender in the left SI joint area without crepitance or deformity. Negative straight leg raises bilaterally. Extremity Extremity Narrative: Full range of motion throughout all 4 extremities including the right upper. Mild tenderness in the area of the biceps, and only has pain when she abducts at the shoulder. No proximal humeral or shoulder girdle/clavicular tenderness. Painless internal/external range of motion. With palpating the humerus proper posteriorly, there is no tenderness throughout the bone from shoulder to elbow. No other areas of bony tenderness throughout all 4 extremities or limitations. Exam is limited in the lower extremities due to severe symmetric chronic-appearing lymphedema. Full range of motion. Neuro oriented x3, no focal motor deficits and no sensory deficits noted Sensorium / Orientation: alert Psych mental status grossly normal and thought process normal Skin no wounds Rashes: no rashes MDM MDM MDM Narrative Medical decision making narrative: The right upper arm exam is extremely benign as is the left knee. There is no bony tenderness, and as I discussed with the patient, I am at such a low suspicion for any actual bony injury that I do not think x-rays are needed. She is in agreement with that assessment. I do think it is reasonable to obtain x-rays of her lumbar spine, and she is agreeable to that. 2-3 views of my interpretation negative for any acute fracture, which I was at a low suspicion for as well but this was the only area where she had bony tenderness. Patient reassured, likely contusion and/or strain/sprain, supportive care advised will offer prescription for NSAIDs. Radiography Diagnostic Testing: Clinical Impression(s) from Imaging Studies Lumbar Spine X-Ray 02/03/23 00:50 IMPRESSION: 1. No acute injuries identified involving the lumbar spine. 2. Degenerative changes. Electronically Signed: Kelton Elizondo MD at 1:13 EDT , Discharge Plan Triage Chief Complaint: Fall ED Provider: Jeevan Mon Dx/Rx/DC Orders Clinical Impression: Acute lumbosacral myofascial strain, Strain of right biceps, Contusion of buttock, Fall from slipping on wet surface Instructions: Self-Care for Strains and Sprains Prescriptions: Continued omeprazole 40 MG capsule,delayed release(DR/EC) 40 mg PO DAILY citalopram 40 mg tablet 40 mg PO DAILY Label Comments: TAKE 1 TABLET BY MOUTH ONCE DAILY ibuprofen 600 mg tablet 600 mg PO Q8H PRN PRN (Reason: pain) Qty: 20 0RF Primary Care Provider: Cecilia Fenton Referrals: Cecilia Fenton, DO [Primary Care Provider] - 1 Week if not improving Disposition Disposition: Home, Self Care
--- NOTE | 2023-02-03 00:50 | RAD_ITS ---
EXAM: XR LUMBOSACRAL SPINE, 2 OR 3 VIEWS CLINICAL INDICATION: fall/pain/injury TECHNIQUE: Frontal and lateral views of the lumbar spine and sacrum. COMPARISON: No relevant prior studies available. FINDINGS: VERTEBRAE: Unremarkable. Preserved vertebral body height. No fracture. No spondylolisthesis. Preservation of the normal lumbar lordosis. No significant facet arthropathy. DISC SPACES: Degenerative changes of the intervertebral discs. GASTROINTESTINAL TRACT: Unremarkable as visualized. Included bowel gas pattern is non-obstructive. RAD/Lumbar Spine 2 or 3 Views IMPRESSION: 1. No acute injuries identified involving the lumbar spine. 2. Degenerative changes. Electronically Signed: Kelton Elizondo MD at 1:13 EDT ,
[2023-02-03] MEDS: Naproxen 250 MG Tablet 500 MG PO (01:39)
== END 2023-02-03 01:44 | disposition home or self-care (01) ==
PROVIDERS: Emergency Provider Emergency Medicine; Visit Provider Emergency Medicine
DX: S39.012A Strain of muscle, fascia and tendon of lower back, initial encounter (principal); S46.211A Strain of muscle, fascia and tendon of other parts of biceps, right arm, initial encounter; S30.0XXA Contusion of lower back and pelvis, initial encounter; W01.0XXA Fall on same level from slipping, tripping and stumbling without subsequent striking against object, initial encounter; Y92.512 Supermarket, store or market as the place of occurrence of the external cause; F17.210 Nicotine dependence, cigarettes, uncomplicated; E66.9 Obesity, unspecified
CPT/HCPCS: 72100; 99281; 99283

== ENCOUNTER 2023-02-06 20:07 | Emergency (ER) | payer MEDICAID, SELFPAY ==
[2023-02-06 20:08] VITALS: BP 155/98; PULSE 114; RESP 18; TEMP 37.1; O2SAT 98; BMI 55.7
--- NOTE | 2023-02-06 20:37 | EDS_ITS ---
HPI <DUGLAS Vaca - Last Filed: 02/06/23 20:44> History of Present Illness Chief Complaint: Suicidal Narrative Narrative: 37-year-old female with PMH of depression presents with suicidal ideation. She was sitting in the park today crying and had a pair scissors and was going to cut her wrists but called 911 instead to bring her in. She states she has a longstanding history of depression and takes Celexa. Her primary care has been increasing the dose over the last 6 months but its not helping. She is under a lot of stress because she is had difficulty with her living arrangements and over the last month and is living out of her car. Her 17-year-old daughter is staying with her parents. She feels like she is in embarrassment to her daughter and she states I had be better off not being here. She has no history of suicide attempts or inpatient psychiatric admissions. She smokes cigarettes and occasionally drinks alcohol but denies drug use. PFSH <DUGLAS Vaca - Last Filed: 02/06/23 20:44> PFSH Medical History Depression GERD (gastroesophageal reflux disease) Home Medications omeprazole 40 mg capsule,delayed release 40 mg PO DAILY 10/07/18 [History Last Taken Unknown] citalopram 40 mg tablet 40 mg PO DAILY 02/03/23 [History Last Taken Unknown] ibuprofen 600 mg tablet 600 mg PO Q8H PRN PRN pain #20 TABLETS 02/03/23 [Rx Last Taken Unknown] cholecalciferol (vitamin D3) 125 mcg (5,000 unit) tablet (Vitamin D3) 1 unit PO DAILY 02/06/23 [History Last Taken Unknown] Allergy/AdvReac Type Severity Reaction Status Date / Time No Known Allergies Allergy Verified 02/06/23 20:11 Surgical History (Updated 07/03/22 @ 12:[address] Quitnin Rodríguez DO) History of surgical removal of ganglion cyst Hx of tonsillectomy Social History Smoking Status: Current every day smoker tobacco type: cigarettes substance use type: does not use ROS <DUGLAS Vaca - Last Filed: 02/06/23 20:44> ROS ED ROS Narrative Constitutional: Negative for fever, chills, malaise. CVS: Negative for palpitations, chest pain, syncope. Respiratory: Negative for shortness of breath, cough, orthopnea. GI: Negative for abdominal pain, nausea, vomiting. Neuro: Negative for headache. EXAM <DUGLAS Vaca - Last Filed: 02/06/23 20:44> Physical Exam Narrative Exam Narrative: CONST: Patient sitting in no acute distress. EYES: Normal inspection. NECK: Normal inspection. RESP: No respiratory distress, CTAB. CVS: Regular rate and rhythm, no murmur, no gallop. SKIN: Color normal, no rash, warm, dry, intact. EXTREMITIES: Normal appearance, no pedal edema. NEURO: Oriented x4. PSYCH: Tearful. Const Vital Signs: 02/06/23 20:08 Temperature 98.7 F Temperature Source Temporal Pulse Rate 114 H Respiratory Rate 18 Blood Pressure 155/98 H Blood Pressure Mean 117 Pulse Ox 98 Oxygen Delivery Method Room Air <Dr. Milad Lynn DO - Last Filed: 02/06/23 22:42> Physical Exam Const Vital Signs: 02/06/23 20:08 Temperature 98.7 F Temperature Source Temporal Pulse Rate 114 H Respiratory Rate 18 Blood Pressure 155/98 H Blood Pressure Mean 117 Pulse Ox 98 Oxygen Delivery Method Room Air MDM <DUGLAS Vaca - Last Filed: 02/06/23 20:44> [facility] MDM Narrative Medical decision making narrative: Patient has history of depression and suicidal with plan to cut her wrist with scissors but called 911 for help. She appears well and nontoxic. Heart rate is 114 with otherwise unremarkable vital signs. She is calm and cooperative when talking to me but did become tearful when relating her recent stressors. Her main screening medical exam is unremarkable. Protocol blood work will be obtained with plan to have crisis evaluate and transfer patient to mental health facility. Police Department filled out a pink slip. Differential: Suicidal ideation, depression, anxiety, underlying mood disorder Lab Data Labs: Laboratory Results - last 24 hr 02/06/23 02/06/23 02/06/23 20:40 20:40 20:40 WBC 9.3 RBC 4.80 Hgb 14.6 Hct 44.3 MCV 92.3 MCH 30.4 MCHC 33.0 RDW Std Deviation 50.4 H RDW Coeff of Anand 14.6 Plt Count 294 MPV 10.7 Immature Gran % (Auto) 0.400 Neut % (Auto) 55.7 Lymph % (Auto) 32.2 Jewell % (Auto) 7.5 Eos % (Auto) 3.8 Baso % (Auto) 0.4 Absolute Neuts (auto) 5.2 Absolute Lymphs (auto) 2.99 Nucleated RBC % 0 Sodium 142 Potassium 3.7 Chloride 109 H Carbon Dioxide 25.0 Anion Gap 8 BUN 9 Creatinine 0.79 Estim Creat Clear Calc 99.92 Est GFR (MDRD) Af Amer 104 Est GFR (MDRD) Non-Af 86 BUN/Creatinine Ratio 11.4 Glucose 92 Calcium 9.6 Serum , Qual Urine Opiates Screen Urine Methadone Screen Ur Barbiturates Screen Ur Phencyclidine Scrn Ur Amphetamines Screen MDMA (Ecstasy) Screen U Benzodiazepines Scrn Urine Cocaine Screen U Cannabinoids Screen Ur Drug Screen Comment Ethyl Alcohol < 3.0 02/06/23 02/06/23 20:40 20:40 WBC RBC Hgb Hct MCV MCH MCHC RDW Std Deviation RDW Coeff of Anand Plt Count MPV Immature Gran % (Auto) Neut % (Auto) Lymph % (Auto) Jewell % (Auto) Eos % (Auto) Baso % (Auto) Absolute Neuts (auto) Absolute Lymphs (auto) Nucleated RBC % Sodium Potassium Chloride Carbon Dioxide Anion Gap BUN Creatinine Estim Creat Clear Calc Est GFR (MDRD) Af Amer Est GFR (MDRD) Non-Af BUN/Creatinine Ratio Glucose Calcium Serum , Qual NEGATIVE Urine Opiates Screen NEGATIVE Urine Methadone Screen NEGATIVE Ur Barbiturates Screen NEGATIVE Ur Phencyclidine Scrn NEGATIVE Ur Amphetamines Screen NEGATIVE MDMA (Ecstasy) Screen NEGATIVE U Benzodiazepines Scrn NEGATIVE Urine Cocaine Screen NEGATIVE U Cannabinoids Screen NEGATIVE Ur Drug Screen Comment Ethyl Alcohol <Dr. Milad Lynn, DO - Last Filed: 02/06/23 22:42> MDM MDM Narrative Medical decision making narrative: Patient has history of depression and suicidal with plan to cut her wrist with scissors but called 911 for help. She appears well and nontoxic. Heart rate is 114 with otherwise unremarkable vital signs. She is calm and cooperative when talking to me but did become tearful when relating her recent stressors. Her main screening medical exam is unremarkable. Protocol blood work will be obtained with plan to have crisis evaluate and transfer patient to mental health facility. Police Department filled out a pink slip. Differential: Suicidal ideation, depression, anxiety, underlying mood disorder This patient was seen with a PA/LABOR SERVICE REPRESENTATIVE Individually assessed they patient including history and physical. I have reviewed everything on the chart that is available and agree with the documentation provided by the PA/LABOR SERVICE REPRESENTATIVE including discussion about the assessment, treatment plan, discussion, and return precautions. Patient expressing suicidal ideation. She has a plan and intent to hurt herself. She states she is going to cut her wrist. Screening lab work was obtained and is unremarkable. Licensed and oncology social worker in to see the patient. Patient does not have a good social support system. She still expressing suicidal ideation and depression. Recommendation currently is for admission to an inpatient psychiatry. [place] slip was filled out. Transfer form was filled out. Patient was signed out to incoming ED physician for monitoring. Crisis will take over overnight to try to get her placed. Lab Data Labs: Laboratory Results - last 24 hr 02/06/23 02/06/23 02/06/23 20:40 20:40 20:40 WBC 9.3 RBC 4.80 Hgb 14.6 Hct 44.3 MCV 92.3 MCH 30.4 MCHC 33.0 RDW Std Deviation 50.4 H RDW Coeff of Anand 14.6 Plt Count 294 MPV 10.7 Immature Gran % (Auto) 0.400 Neut % (Auto) 55.7 Lymph % (Auto) 32.2 Jewell % (Auto) 7.5 Eos % (Auto) 3.8 Baso % (Auto) 0.4 Absolute Neuts (auto) 5.2 Absolute Lymphs (auto) 2.99 Nucleated RBC % 0 Sodium 142 Potassium 3.7 Chloride 109 H Carbon Dioxide 25.0 Anion Gap 8 BUN 9 Creatinine 0.79 Estim Creat Clear Calc 99.92 Est GFR (MDRD) Af Amer 104 Est GFR (MDRD) Non-Af 86 BUN/Creatinine Ratio 11.4 Glucose 92 Calcium 9.6 Serum , Qual Urine Opiates Screen Urine Methadone Screen Ur Barbiturates Screen Ur Phencyclidine Scrn Ur Amphetamines Screen MDMA (Ecstasy) Screen U Benzodiazepines Scrn Urine Cocaine Screen U Cannabinoids Screen Ur Drug Screen Comment Ethyl Alcohol < 3.0 02/06/23 02/06/23 20:40 20:40 WBC RBC Hgb Hct MCV MCH MCHC RDW Std Deviation RDW Coeff of Anand Plt Count MPV Immature Gran % (Auto) Neut % (Auto) Lymph % (Auto) Jewell % (Auto) Eos % (Auto) Baso % (Auto) Absolute Neuts (auto) Absolute Lymphs (auto) Nucleated RBC % Sodium Potassium Chloride Carbon Dioxide Anion Gap BUN Creatinine Estim Creat Clear Calc Est GFR (MDRD) Af Amer Est GFR (MDRD) Non-Af BUN/Creatinine Ratio Glucose Calcium Serum , Qual NEGATIVE Urine Opiates Screen NEGATIVE Urine Methadone Screen NEGATIVE Ur Barbiturates Screen NEGATIVE Ur Phencyclidine Scrn NEGATIVE Ur Amphetamines Screen NEGATIVE MDMA (Ecstasy) Screen NEGATIVE U Benzodiazepines Scrn NEGATIVE Urine Cocaine Screen NEGATIVE U Cannabinoids Screen NEGATIVE Ur Drug Screen Comment Ethyl Alcohol Discharge Plan Triage Chief Complaint: Suicidal ED Midlevel Provider: Farida Mayfield ED Provider: Milad Lynn Dx/Rx/DC Orders Prescriptions: No Action omeprazole 40 MG capsule,delayed release(DR/EC) 40 mg PO DAILY citalopram 40 mg tablet 40 mg PO DAILY Label Comments: TAKE 1 TABLET BY MOUTH ONCE DAILY ibuprofen 600 mg tablet 600 mg PO Q8H PRN PRN (Reason: pain) Qty: 20 0RF cholecalciferol (vitamin D3) [Vitamin D3] 125 mcg (5,000 unit) Tablet 1 unit PO DAILY Rx Instructions: 72223 IU DAILY Primary Care Provider: Cecilia Fenton Referrals: Cecilia Fenton DO [Primary Care Provider] - Disposition Disposition: Acute Care Hospital Discharge Location: [facility]
[2023-02-06 20:52] LABS: Absolute Lymphocyte Count 2.99 X10^3/uL (0.83-4.51); Absolute Neutrophil Count 5.2 X10^3/uL (2.0-7.7); Basophil# 0.04 X10^3/uL; Basophil% 0.4 % (0-1); Eosinophil# 0.35 X10^3/uL; Eosinophils% 3.8 % (0-5); Hematocrit 44.3 % (37-47); Hemoglobin 14.6 g/dL (12.0-15.0); Lymphocyte # 2.99 X10^3/ul (0.83-4.51); Lymphocyte % 32.2 % (19-41); Mean Corpuscular Hgb 30.4 pg (27.0-32.0); Mean Corpuscular Volume 92.3 fL (81-99); Mean Platelet Vol. 10.7 fl (6.2-12.0); Monocyte% 7.5 % (0-10); NRBC Flagged by Analyzer 0 % (0-5); Neutrophil # 5.17 X10^3/uL (2.7-7.7); Neutrophil % 55.7 % (47-70); Platelet Count 294 K/mm3 (150-450); RBC Distribution Width CV 14.6 % (11.6-14.6); RBC Distribution Width SD 50.4 fl (35.1-43.9); White Blood Count 9.3 K/mm3 (4.4-11.0)
[2023-02-06 21:25] LABS: Alcohol, Blood (Medical)-Serum < 3.0 mg/dL
[2023-02-06 21:28] LABS: Internal QC Validated? YES +Cl - CLEAR BKGD; Pregnancy, Serum, hCG Quali. NEGATIVE Negative
[2023-02-06 21:29] LABS: Anion Gap 8 (5-15); BUN 9 mg/dL (7-18); BUN/Creat Ratio 11.4 RATIO (10-20); Calcium,Total 9.6 mg/dL (8.5-10.1); Chloride 109 mmol/L (98-107); Creatinine, Serum 0.79 mg/dL (0.55-1.02); EST Glomerular Filtration Rate 86 mL/min (>60); Est Glom Filt Rate - Afr Amer 104 mL/min (>60); Estimated Creatinine Clearance 99.92 ml/min; Glucose 92 mg/dL (74-106); Potassium 3.7 mmol/L (3.5-5.1); Sodium Level 142 mmol/L (136-145)
[2023-02-06 21:30] LABS: Amphetamine Urine VISTA NEGATIVE (<1000 ng/mL); Barbiturate Urine VISTA NEGATIVE (< 200 ng/mL); Benzodiazepine Urine VISTA NEGATIVE (< 200 ng/mL); Cocaine Urine VISTA NEGATIVE (< 300 ng/mL); Ecstacy Urine VISTA NEGATIVE (< 500 ng/mL); Methadone Urine VISTA NEGATIVE (< 300 ng/mL); PCP Urine VISTA NEGATIVE (< 25 ng/mL); THC Urine VISTA NEGATIVE (< 50 ng/mL); Vista UDS pH Range 6
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
--- NOTE | 2023-02-06 23:20 | CM.ED ---
Social Work Patient referred to [facility] for placement. Referral faxed to crisis for follow-up. Criselda Jimenes CORPORATE GIVING MANAGER, WELT TREATER
[2023-02-07 02:00] VITALS: BP 152/74; PULSE 68; RESP 16; O2SAT 100
[2023-02-07] MEDS: Ibuprofen 600 MG Tablet PO (04:07)
[2023-02-07 04:12] VITALS: BP 122/67; PULSE 76; RESP 15; TEMP 36.4; O2SAT 97
[2023-02-07 06:00] VITALS: RESP 15
[2023-02-07] MEDS: Citalopram 40 MG TABLET PO (08:19)
[2023-02-07] MEDS: Pantoprazole Sodium 40 MG Tablet PO (08:19)
[2023-02-07] MEDS: Acetaminophen 325 MG Tablet 650 MG PO (09:43)
--- NOTE | 2023-02-07 10:20 | CM.ED ---
Social Work SW spoke with Crisis who was unable to get patient placed over night. SW additionally referred patient to [facility] and [place]. Criselda Jimenes SPACECRAFT SYSTEMS ENGINEER, CALL CENTER RECRUITER
--- NOTE | 2023-02-07 11:32 | CM.ED ---
Social Work [place] called with accepting information. Dr. Pierre will accept patient to [facility]. Requesting a nurse to nurse called to [phone] and a pink slip faxed. Criselda Jimenes CUPOLA MELTER, [employer]ISTS
--- NOTE | 2023-02-07 12:24 | ED.RN ---
Verbal report given to [facility]. Pt being transported to [place].
[2023-02-07 12:29] VITALS: BP 134/87; PULSE 65; RESP 16; O2SAT 98
--- NOTE | 2023-02-07 12:29 | ED.RN ---
Attempted to call [facility]- [phone]- rings a few times and then says the [facility] you dialed is unavailable to take your call right now.
== END 2023-02-07 12:32 ==
PROVIDERS: Physician Assistant; Emergency Provider Student in an Organized Health Care Education/Training Program; Visit Provider Student in an Organized Health Care Education/Training Program
DX: F32.A Depression, unspecified (principal); R45.851 Suicidal ideations; K21.9 Gastro-esophageal reflux disease without esophagitis; F17.210 Nicotine dependence, cigarettes, uncomplicated; Z79.899 Other long term (current) drug therapy
CPT/HCPCS: 80048; 80307; 82077; 84703; 85025; 99284

== ENCOUNTER 2023-02-16 18:39 | Emergency (ER) | payer MEDICAID, SELFPAY ==
[2023-02-16 18:47] VITALS: BP 155/105; PULSE 87; RESP 18; TEMP 36.7; O2SAT 97; BMI 56.8
--- NOTE | 2023-02-16 19:12 | ED.VIS.BACK ---
HPI History of Present Illness Chief Complaint: Back Informant: patient Onset/Context/Timing Onset: Weeks Context: Gradual Onset Injury: fall Timing: Continuous Quality: Aching Location: Lumbar and Left Leg Worsened by: improves with Movement (Standing from a seated position) Relieved by: Nothing Associated Symptoms Associated Symptoms: Radiation to Left Leg; Negative for Numbness, Tingling, Radiation to Right Leg, Fever, Abdominal Pain, Dysuria, Unable to Ambulate, Unable to Transfer, Urinary Retention, Urinary Incontinence, Constipation or Fecal Incontinence Narrative Narrative: Patient presents with low back pain that began 2 weeks ago. Patient states she fell at that time. Patient states she was seen here at that time and had x-rays done which were negative. Patient states her pain has been constant. Patient describes it as aching. Patient states it is worse with certain movements. Patient states it radiates down her left leg. Patient also states it radiates into her right buttock. Patient denies any paresthesias or weakness. Patient denies any bowel or bladder changes. Patient denies any saddle anesthesia. [facility] Medical History Depression GERD (gastroesophageal reflux disease) Home Medications omeprazole 40 mg capsule,delayed release 40 mg PO DAILY 10/07/18 [History Last Taken Unknown] citalopram 40 mg tablet 40 mg PO DAILY 02/03/23 [History Last Taken Unknown] ibuprofen 600 mg tablet 600 mg PO Q8H PRN PRN pain #20 TABLETS 02/03/23 [Rx Last Taken Unknown] cholecalciferol (vitamin D3) 125 mcg (5,000 unit) tablet (Vitamin D3) 1 unit PO DAILY 02/06/23 [History Last Taken Unknown] hydrocodone-acetaminophen 5-325mg 5mg-325mg 1 tab PO Q6H PRN PRN Pain 3 days #10 TABLETS 02/16/23 [Rx Last Taken Unknown] prednisone 20 mg tablet 60 mg PO DAILY #12 TABLETS 02/16/23 [Rx Last Taken Unknown] Allergy/AdvReac Type Severity Reaction Status Date / Time No Known Allergies Allergy Verified 02/16/23 18:50 Surgical History History of surgical removal of ganglion cyst Hx of tonsillectomy Social History Smoking Status: Current every day smoker tobacco type: cigarettes substance use type: does not use ROS ROS ED Constitutional Constitutional ED: Denies chills or fever(s) Eyes Eyes: Denies blurry vision or change in vision ENT ENT ED: Denies rhinorrhea or sore throat Cardiovascular Cardiovascular: Denies chest pain or palpitations Respiratory/Chest Respiratory/Chest: Denies cough or dyspnea Gastrointestinal Gastrointestinal: Denies nausea or vomiting Genitourinary Genitourinary ED: Denies dysuria or hematuria Musculoskeletal Musculoskeletal: Reports back pain; Denies neck pain Integumentary Denies abscess or rash Neurologic Neurologic: Denies headache(s) or weakness Allergic/Immunologic Allergic/Immunologic ED: Denies mouth swelling or urticaria EXAM Physical Exam Const Vital Signs: 02/16/23 18:47 Temperature 98.1 F Temperature Source Temporal Pulse Rate 87 Respiratory Rate 18 Blood Pressure 155/105 H Blood Pressure Mean 121 Pulse Ox 97 Oxygen Delivery Method Room Air Positive well nourished, well developed and obese General Appearance ED: well developed and NAD Nutritional Appearance: obese HEENT Reports moist mucous membranes Neck supple and no JVD Back/Spine Back/Spine Narrative: There is tenderness over the lower lumbar spine and paraspinal muscles. There is no bony crepitance or step-off. There is somewhat limited range of motion in all motions of the lumbar spine secondary to pain. Strength is 5/5 bilaterally in the lower extremities. Sensation was intact to light touch bilaterally in the lower extremities. Straight leg raises were negative bilaterally. Lumbar Spine / Lower Back: ROM limited and straight leg raise negative bilaterally Extremity normal to inspection Neuro oriented x3 and no sensory deficits noted Sensorium / Orientation: alert Motor Exam: strength 5/5 throughout Psych mental status grossly normal MDM MDM MDM Narrative Medical decision making narrative: Differential diagnosis includes lumbosacral strain and sciatica. Patient has normal sensation and strength in her lower extremities. Patient has no loss of control of her bowels or bladder. Therefore, I do not feel this is cauda equina. Patient was given a dose of prednisone and [place] here. Patient was given prescriptions for the same. Patient was instructed to use ice to the area. Patient was instructed to follow-up with her primary care physician in 5 to 7 days. Patient understood and was agreeable with the plan. All questions were answered. Discharge Plan Triage Chief Complaint: Back ED Provider: Quintin Rodríguez Dx/Rx/DC Orders Clinical Impression: Sciatica, Lumbosacral strain Instructions: ED Sciatica Prescriptions: New hydrocodone-acetaminophen [hydrocodone-acetaminophen] 5-325 mg tablet 1 tab PO Q6H PRN PRN (Reason: Pain) 3 Days Qty: 10 0RF prednisone 20 mg tablet 60 mg PO DAILY Qty: 12 0RF No Action omeprazole 40 MG capsule,delayed release(DR/EC) 40 mg PO DAILY citalopram 40 mg tablet 40 mg PO DAILY Label Comments: TAKE 1 TABLET BY MOUTH ONCE DAILY ibuprofen 600 mg tablet 600 mg PO Q8H PRN PRN (Reason: pain) Qty: 20 0RF cholecalciferol (vitamin D3) [Vitamin D3] 125 mcg (5,000 unit) Tablet 1 unit PO DAILY Rx Instructions: 86055 IU DAILY Primary Care Provider: Cecilia Fenton Referrals: Cecilia Fenton DO [Primary Care Provider] - [facility] [place] appointment Disposition Disposition: Home, Self Care
[2023-02-16 19:31] VITALS: RESP 16
== END 2023-02-16 19:35 | disposition home or self-care (01) ==
PROVIDERS: Emergency Provider Emergency Medicine; Visit Provider Emergency Medicine
DX: S39.012A Strain of muscle, fascia and tendon of lower back, initial encounter (principal); F17.210 Nicotine dependence, cigarettes, uncomplicated; M54.30 Sciatica, unspecified side; W19.XXXA Unspecified fall, initial encounter
CPT/HCPCS: 99284

== ENCOUNTER 2023-08-17 08:21 | Emergency (ER) | payer MEDICAID, SELFPAY ==
[2023-08-17 08:23] VITALS: BP 157/82; PULSE 72; RESP 16; TEMP 36.1; O2SAT 98; BMI 53.1
--- NOTE | 2023-08-17 09:02 | EDS_ITS ---
HPI History of Present Illness Chief Complaint: Back Narrative Narrative: -year-old female presenting with left lower back pain. Patient states this started about a week ago. Patient denies any trauma. No loss of bladder or bowel control, saddle anesthesia, paresthesia. Patient states that she has been trying NSAIDs [id number] without much relief. She has been doing [id number] patches which does help initially but then the relief wears off. [facility] Medical History Depression GERD (gastroesophageal reflux disease) Home Medications omeprazole 40 mg capsule,delayed release 40 mg PO DAILY 10/07/18 [History Last Taken Unknown] citalopram 40 mg tablet 40 mg PO DAILY 02/03/23 [History Last Taken Unknown] ibuprofen 600 mg tablet 600 mg PO Q8H PRN PRN pain #20 TABLETS 02/03/23 [Rx Last Taken Unknown] cholecalciferol (vitamin D3) 125 mcg (5,000 unit) tablet (Vitamin D3) 1 unit PO DAILY 02/06/23 [History Last Taken Unknown] hydrocodone-acetaminophen 5-325mg 5mg-325mg 1 tab PO Q6H PRN PRN Pain 3 days #10 TABLETS 02/16/23 [Rx Last Taken Unknown] prednisone 20 mg tablet 60 mg (3 x 20 mg) PO DAILY #12 TABLETS 02/16/23 [Rx Last Taken Unknown] naproxen 500 mg tablet 500 mg PO BID #30 tabs 08/17/23 [Rx Last Taken Unknown] prednisone 50 mg tablet 50 mg PO DAILY #3 tabs 08/17/23 [Rx Last Taken Unknown] tizanidine 4 mg tablet 4 mg PO Q8H PRN muscle spasticity #20 tabs 08/17/23 [Rx Last Taken Unknown] Allergy/AdvReac Type Severity Reaction Status Date / Time No Known Allergies Allergy Verified 02/16/23 18:50 Surgical History History of surgical removal of ganglion cyst Hx of tonsillectomy Social History Smoking Status: Current every day smoker tobacco type: cigarettes substance use type: does not use ROS ROS ED Constitutional Constitutional ED: Denies chills, fever(s) or sweats Eyes Eyes: Denies blurry vision or change in vision ENT ENT ED: Denies ear pain or sore throat Cardiovascular Cardiovascular: Denies chest pain, palpitations or racing heartbeat Respiratory/Chest Respiratory/Chest: Denies cough, dyspnea or sputum Gastrointestinal Gastrointestinal: Denies abdominal pain, constipation, diarrhea, nausea or vomiting Genitourinary Genitourinary ED: Denies dysuria, hematuria or urinary frequency Musculoskeletal Musculoskeletal: Reports back pain; Denies arthralgias, myalgias or neck pain Integumentary Denies abscess, Abrasions or rash Neurologic Neurologic: Denies headache(s), paresthesias or weakness Psychiatric Psychiatric: Denies anxiety, depression, suicidal ideation or suicidal thoughts Endocrine Endocrinology: Denies polydipsia or polyuria EXAM Physical Exam Const Vital Signs: 08/17/23 08:23 Temperature 96.9 F L Temperature Source Temporal Pulse Rate 72 Respiratory Rate 16 Blood Pressure 157/82 H Blood Pressure Mean 107 Pulse Ox 98 Oxygen Delivery Method Room Air Positive well nourished General Appearance ED: NAD HEENT Reports moist mucous membranes Eyes PERRL and EOMs intact bilaterally Neck no lymphadenopathy Resp normal respiratory effort Cardio regular rate and regular rhythm Back/Spine Back/Spine Narrative: Palpation left lumbar paraspinal musculature. No midline spinal deformity, step-off, tenderness. No CVA tenderness. Extremity normal to inspection Neuro oriented x3 and no sensory deficits noted Sensorium / Orientation: alert Motor Exam: strength 5/5 throughout Psych mental status grossly normal Skin no rashes or lesions noted MDM MDM MDM Narrative Medical decision making narrative: Patient presenting with nontraumatic left lower back pain. She is tender on ex am in this region. No midline spinal tenderness, deformity, step-off. No concern for infectious discitis, cauda equina syndrome. Patient is driving today so we discussed getting her muscle relaxers as a prescription. I will put her on a couple days of prednisone and she is also given option to take when her prednisone is finished. She is given stretching exercises and return precautions. Impression 1. Lumbar strain Lab Data Attestation: I reviewed the patient's lab results. Discharge Plan Triage Chief Complaint: Back ED Provider: Milad Lynn Dx/Rx/DC Orders Instructions: ED Back Spasm, No Trauma Prescriptions: New prednisone 50 mg tablet 50 mg PO DAILY Qty: 3 0RF tizanidine 4 mg tablet 4 mg PO Q8H PRN (Reason: muscle spasticity) Qty: 20 0RF naproxen 500 mg tablet 500 mg PO BID Qty: 30 0RF No Action omeprazole 40 MG capsule,delayed release(DR/EC) 40 mg PO DAILY citalopram 40 mg tablet 40 mg PO DAILY Patient Comments: TAKE 1 TABLET BY MOUTH ONCE DAILY ibuprofen 600 mg tablet 600 mg PO Q8H PRN PRN (Reason: pain) Qty: 20 0RF cholecalciferol (vitamin D3) [Vitamin D3] 125 mcg (5,000 unit) Tablet 1 unit PO DAILY Rx Instructions: 04848 IU DAILY hydrocodone-acetaminophen [hydrocodone-acetaminophen] 5-325 mg tablet 1 tab PO Q6H PRN PRN (Reason: Pain) 3 Days Qty: 10 0RF prednisone 20 mg tablet 60 mg PO DAILY Qty: 12 0RF Primary Care Provider: Cecilia Fenton Referrals: Cecilia Fenton, [Primary Care Provider] - Disposition Disposition: Home, Self Care
== END 2023-08-17 09:16 | disposition home or self-care (01) ==
LOC: ED 09:06
PROVIDERS: Emergency Provider Student in an Organized Health Care Education/Training Program; Visit Provider Student in an Organized Health Care Education/Training Program
DX: S39.012A Strain of muscle, fascia and tendon of lower back, initial encounter (principal); X58.XXXA Exposure to other specified factors, initial encounter; F32.A Depression, unspecified; K21.9 Gastro-esophageal reflux disease without esophagitis; F17.210 Nicotine dependence, cigarettes, uncomplicated; Z79.899 Other long term (current) drug therapy
CPT/HCPCS: 99282

== ENCOUNTER → 2023-09-04 | Outpatient (CLI) | payer MEDICAID, SELFPAY ==
[2023-09-04 10:18] LABS: Hematocrit 44.4 % (37-47); Hemoglobin 13.7 g/dL (12.0-15.0); Mean Corp Hgb Conc 30.9 g/dL (32-36); Mean Corpuscular Hgb 28.8 pg (27.0-32.0); Mean Corpuscular Volume 93.3 fL (81-99); Mean Platelet Vol. 11.4 fl (6.2-12.0); Platelet Count 295 K/mm3 (150-450); RBC Distribution Width CV 14.2 % (11.6-14.6); RBC Distribution Width SD 49.3 fl (35.1-43.9); Red Blood Count 4.76 M/mm3 (4.2-5.4); White Blood Count 9.7 K/mm3 (4.4-11.0)
[2023-09-04 10:57] LABS: Vitamin D,25 Hydroxy 92.5 ng/mL
[2023-09-04 11:07] LABS: ALB/GLOB Ratio 0.8 RATIO (0.9-2.4); AST(SGOT) 8 U/L (15-37); Alanine Aminotransfer ALT/SGPT 16 U/L (13-56); Albumin, Serum 3.3 g/dL (3.2-5.0); Alkaline Phosphatase 82 U/L (45-117); Anion Gap 4 (5-15); BUN 13 mg/dL (7-18); BUN/Creat Ratio 15.5 RATIO (10-20); Calcium,Total 9.2 mg/dL (8.5-10.1); Chloride 107 mmol/L (98-107); Cholesterol 176 mg/dL (200); Creatinine, Serum 0.84 mg/dL (0.55-1.02); EST Glomerular Filtration Rate 80 mL/min (>60); Est Glom Filt Rate - Afr Amer 97 mL/min (>60); Globulin 3.9 g/dL (2.2-4.2); Glucose 77 mg/dL (74-106); High Density Lipoprotein 55 mg/dL; Potassium 3.7 mmol/L (3.5-5.1); Protein, Total 7.2 g/dL (6.4-8.2); Sodium Level 139 mmol/L (136-145); Triglycerides 92 mg/dL; Very Low Density Lipoprotein 18 mg/dL (5-40)
== END | disposition home or self-care (01) ==
LOC: LAB 09:46
DX: E66.01 Morbid (severe) obesity due to excess calories (principal); F33.1 Major depressive disorder, recurrent, moderate; K21.9 Gastro-esophageal reflux disease without esophagitis; E55.9 Vitamin D deficiency, unspecified
CPT/HCPCS: 36415; 80053; 80061; 82306; 84443; 85027

== ENCOUNTER → 2024-09-09 | Outpatient (CLI) | payer MEDICAID, SELFPAY ==
[2024-09-09 08:29] LABS: Hematocrit 44.4 % (37-47); Hemoglobin 14.2 g/dL (12.0-15.0); Mean Corpuscular Hgb 29.3 pg (27.0-32.0); Mean Corpuscular Volume 91.7 fL (81-99); Mean Platelet Vol. 11.1 fl (6.2-12.0); Platelet Count 274 K/mm3 (150-450); RBC Distribution Width CV 14.7 % (11.6-14.6); RBC Distribution Width SD 50.2 fl (35.1-43.9); Red Blood Count 4.84 M/mm3 (4.2-5.4); White Blood Count 7.2 K/mm3 (4.4-11.0)
[2024-09-09 09:06] LABS: Vitamin D,25 Hydroxy 82.1 ng/mL
[2024-09-09 09:08] LABS: ALB/GLOB Ratio 0.9 RATIO (0.9-2.4); AST(SGOT) 15 U/L (15-37); Alanine Aminotransfer ALT/SGPT 23 U/L (13-56); Albumin, Serum 3.3 g/dL (3.2-5.0); Alkaline Phosphatase 80 U/L (45-117); Anion Gap 6 (5-15); BUN 13 mg/dL (7-18); BUN/Creat Ratio 15.7 RATIO (10-20); Calcium,Total 8.6 mg/dL (8.5-10.1); Chloride 106 mmol/L (98-107); Cholesterol 183 mg/dL (200); Creatinine, Serum 0.83 mg/dL (0.55-1.02); EST Glomerular Filtration Rate 81 mL/min (>60); Est Glom Filt Rate - Afr Amer 98 mL/min (>60); Globulin 3.7 g/dL (2.2-4.2); Glucose 114 mg/dL (74-106); High Density Lipoprotein 60 mg/dL; Potassium 4.3 mmol/L (3.5-5.1); Sodium Level 136 mmol/L (136-145); Triglycerides 79 mg/dL; Very Low Density Lipoprotein 16 mg/dL (5-40)
== END | disposition home or self-care (01) ==
LOC: LAB 07:47
DX: Z00.00 Encounter for general adult medical examination without abnormal findings (principal); E66.01 Morbid (severe) obesity due to excess calories; E55.9 Vitamin D deficiency, unspecified; K21.9 Gastro-esophageal reflux disease without esophagitis
CPT/HCPCS: 36415; 80053; 80061; 82306; 84443; 85027

== ENCOUNTER 2024-11-05 16:42 | Emergency (ER) | payer MEDICAID, SELFPAY ==
[2024-11-05] VITALS (7 sets, daily range): BP systolic 144–156; BP diastolic 60–90; PULSE 63–96; RESP 16–18; TEMP 36.3–37.2; O2SAT 96–100; BMI 61.0
--- NOTE | 2024-11-05 17:07 | ED.RN ---
C/O NUMBESS AND TINGLING WITH CHEST PAIN/SOB. PT DENIES HX OF THIS. PT IS HYPERVENTILATING, THIS NURSE PLACED PT ON THE MONITOR AND ADVISED PT TO SLOW HER BREATHING IN THROUGH THE NOSE. DR ADVISED PT STATUS. CALLED FOR EKG
--- NOTE | 2024-11-05 17:38 | EKG12_ITS ---
Test Reason : SOB Blood Pressure : */* mmHG Vent. Rate : 67 BPM Atrial Rate : 67 BPM P-R Int : 144 ms QRS Dur : 90 ms QT Int : 420 ms P-R-T Axes : 39 41 25 degrees QTcB Int : 443 ms Normal sinus rhythm Normal ECG Confirmed by EMILIO BUSTOS, CATRINA ([id number]), food expeditor ORLANDO GÓMEZ ([id number]) on 11/08/2024 8:17:42 AM Referred By: Confirmed By: CATRINA JHAVERI MD
--- NOTE | 2024-11-05 17:40 | ED.VIS.DYS ---
HPI History of Present Illness Chief Complaint: Shortness of Breath Informant: patient Onset/Context/Timing Onset: Today Context: gradual Timing: Continuous Quality: Positive for Dyspnea on exertion Worsened by: Exertion Relieved by: Nothing Associated Symptoms ear pain; Negative for cough, rhinorrhea, post nasal drip, fever, sore throat, chills, sweats, clear sputum, white sputum, yellow sputum or green sputum Chest Pain: Positive for Tightness (Right chest and substernal) Narrative Narrative: Patient presents with shortness of breath and right-sided chest pain that began today. Patient states it is gradually gotten worse today. Patient states her breathing is worse with exertion. Patient states it is constant. Patient states she was recently diagnosed with right otitis media. Patient denies any fevers or chills. Patient describes her pain as a tightness across the right side of her chest and into the substernal area. Patient denies any cough. Patient does admit to some diarrhea. [facility] Medical History Depression GERD (gastroesophageal reflux disease) Home Medications ?Medication ?Instructions ?Recorded ?Last Taken ?Type omeprazole 40 mg capsule,delayed 40 mg PO DAILY 10/07/18 11/05/24 History release citalopram 40 mg tablet 40 mg PO DAILY 02/03/23 11/05/24 History ibuprofen 600 mg tablet 600 mg PO Q8H PRN PRN pain #20 02/03/23 Unknown Rx TABLETS cholecalciferol (vitamin D3) 125 1 unit PO DAILY 02/06/23 Unknown History mcg (5,000 unit) tablet (Vitamin D3) hydrocodone-acetaminophen 5-325mg 1 tab PO Q6H PRN PRN Pain 3 days 02/16/23 Unknown Rx 5mg-325mg #10 TABLETS naproxen 500 mg tablet 500 mg PO BID #30 tabs 08/17/23 Unknown Rx bupropion HCl PO 11/05/24 11/05/24 History Allergy/AdvReac Type Severity Reaction Status Date / Time No Known Allergies Allergy Verified 11/05/24 17:08 Surgical History History of surgical removal of ganglion cyst Hx of tonsillectomy Social History Smoking Status: Current every day smoker tobacco type: cigarettes substance use type: does not use ROS ROS ED Constitutional Constitutional ED: Denies chills or fever(s) Eyes Eyes: Denies blurry vision or change in vision ENT ENT ED: Denies rhinorrhea or sore throat Cardiovascular Cardiovascular: Reports chest pain; Denies palpitations Respiratory/Chest Respiratory/Chest: Reports dyspnea; Denies cough Gastrointestinal Gastrointestinal: Reports diarrhea; Denies nausea or vomiting Genitourinary Genitourinary ED: Denies dysuria or hematuria Musculoskeletal Musculoskeletal: Denies back pain or neck pain Integumentary Denies abscess or rash Neurologic Neurologic: Denies headache(s) or weakness Allergic/Immunologic Allergic/Immunologic ED: Denies mouth swelling or urticaria EXAM Physical Exam Const Vital Signs: 11/05/24 16:43 11/05/24 17:04 11/05/24 17:06 Temperature 97.4 F L Temperature Source Temporal Pulse Rate 91 Respiratory Rate 18 Respiratory Effort Short of Breath Short of Breath Respiratory Depth Shallow Respiratory Pattern Hyperpnea Blood Pressure 144/60 H Blood Pressure Mean 88 Pulse Ox 100 Oxygen Delivery Method Room Air Room Air Positive well nourished and well developed Constitutional Narrative: BMI of 61.0 General Appearance ED: well developed and NAD HEENT Reports moist mucous membranes Neck supple and no JVD Resp normal respiratory effort Auscultation: diminished lung sounds Cardio regular rate and regular rhythm GI non-tender and non-distended Palpation: soft Neuro oriented x3, CN's II-XII intact bilaterally and no sensory deficits noted [place] Coma Scale: document GCS findings Spontaneous Obeys Commands Oriented 15 Sensorium / Orientation: alert Speech: speech normal Motor Exam: strength 5/5 throughout Psych mental status grossly normal MDM MDM MDM Narrative Medical decision making narrative: Differential diagnosis includes cardiac dysrhythmia, cardiac ischemia, pneumonia, bronchitis, viral illness, and anxiety. EKG will be obtained to assess for cardiac dysrhythmia and cardiac ischemia. Chest x-ray will be obtained to assess for pneumonia, bronchitis, pneumothorax. COVID-19, influenza, and RSV PCR will be obtained to assess for viral illness. Lab Data Attestation: I reviewed the patient's lab results. Lab results narrative: COVID-19 PCR was reviewed and was negative. Influenza PCR was reviewed and was negative for influenza A and influenza B. RSV PCR was reviewed and was negative. Radiography Chest X-Ray - ED: 2 View, Read by ED Physician, Read by Radiologist and No Acute Disease Diagnostic Testing: PA and lateral chest x-ray was obtained. There are 2 views. On my independent interpretation, lung schuster are clear. There is normal cardiac silhouette. Bony thorax is normal. There is no acute process noted. Radiologist also interpreted the x-ray and agrees. EKG Initial EKG: Attestation: I personally reviewed and interpreted this EKG as follows: Interpretation: Sinus Rhythm (67) and No Acute Injury Pattern Comments: EKG was obtained. On my independent interpretation, it showed a normal sinus rhythm with a rate of 67. [place] interval, QRS interval, and QTc intervals were all normal. [place] was normal. There are no acute ST or T wave changes. Prior EKG tracings: available for review Prior: Unchanged (07/03/2022) Treatment and Re-Evaluation :: Patient was given a DuoNeb aerosol here. Patient was feeling better on reevaluation. Patient was advised of her findings. Patient was instructed to follow-up with her primary care physician in 5 to 7 days. Patient was instructed to return if worse in any way. Patient understood and was agreeable with the plan. All questions were answered. Discharge Plan Triage Chief Complaint: Shortness of Breath ED Provider: Quintin Rodríguez Dx/Rx/DC Orders Clinical Impression: Dyspnea, Tobacco use Instructions: ED Dyspnea Prescriptions: No Action omeprazole 40 MG capsule,delayed release(DR/EC) 40 mg PO DAILY citalopram 40 mg tablet 40 mg PO DAILY Patient Comments: TAKE 1 TABLET BY MOUTH ONCE DAILY ibuprofen 600 mg tablet 600 mg PO Q8H PRN PRN (Reason: pain) Qty: 20 0RF cholecalciferol (vitamin D3) [Vitamin D3] 125 mcg (5,000 unit) Tablet 1 unit PO DAILY Rx Instructions: 19790 IU DAILY hydrocodone-acetaminophen [hydrocodone-acetaminophen] 5-325 mg tablet 1 tab PO Q6H PRN PRN (Reason: Pain) 3 Days Qty: 10 0RF naproxen 500 mg tablet 500 mg PO BID Qty: 30 0RF bupropion HCl [Wellbutrin SR] PO Primary Care Provider: Cecilia Fenton Referrals: Cecilia Fenton, [Primary Care Provider] - 3-5 Days Print Language: [place] Islander Disposition Disposition: Home, Self Care
[2024-11-05] MEDS: Ipratropium/Albuterol Sulfate 3 ML AMPUL.NEB INHALATION (18:00)
--- NOTE | 2024-11-05 18:25 | RAD_ITS ---
PROCEDURE: CHEST PA AND LATERAL REASON FOR EXAM: Dyspnea TECHNIQUE: Frontal and lateral views of the chest. COMPARISON: 07/06/2020 FINDINGS: The lungs are clear. No pleural effusion or pneumothorax. The cardiomediastinal silhouette is unremarkable. No acute osseous or soft tissue abnormality. RAD/Chest PA and Lateral IMPRESSION: 1. No acute cardiopulmonary process. Reading [facility]
== END 2024-11-05 19:44 | disposition home or self-care (01) ==
PROVIDERS: Emergency Provider Emergency Medicine; Visit Provider Emergency Medicine
DX: R06.00 Dyspnea, unspecified (principal); R07.2 Precordial pain; R19.7 Diarrhea, unspecified; K21.9 Gastro-esophageal reflux disease without esophagitis; F17.210 Nicotine dependence, cigarettes, uncomplicated; Z79.899 Other long term (current) drug therapy
CPT/HCPCS: 71046; 87631; 93005; 94640; 99284; A4216

== ENCOUNTER → 2025-03-14 | Outpatient (CLI) | payer MEDICAID, SELFPAY ==
[2025-03-14 12:04] LABS: Hematocrit 40.2 % (37-47); Hemoglobin 13.1 g/dL (12.0-15.0); Mean Corp Hgb Conc 32.6 g/dL (32-36); Mean Corpuscular Hgb 29.4 pg (27.0-32.0); Mean Corpuscular Volume 90.3 fL (81-99); Mean Platelet Vol. 11.8 fl (6.2-12.0); Platelet Count 193 K/mm3 (150-450); RBC Distribution Width CV 15.2 % (11.6-14.6); RBC Distribution Width SD 50.6 fl (35.1-43.9); Red Blood Count 4.45 M/mm3 (4.2-5.4); White Blood Count 6.1 K/mm3 (4.4-11.0)
[2025-03-14 12:31] LABS: Hemoglobin A1c 5.5 % (<=5.6)
[2025-03-14 14:30] LABS: ALB/GLOB Ratio 1.3 RATIO (0.9-2.4); AST(SGOT) 29 U/L (<=31); Alanine Aminotransfer ALT/SGPT 23 U/L (<=34); Albumin, Serum 3.7 g/dL (3.5-5.0); Alkaline Phosphatase 83 U/L (35-104); Anion Gap 11 (5-15); BUN 11 mg/dL (4-19); BUN/Creat Ratio 12.5 RATIO (10-20); Carbon Dioxide 22.4 mmol/L (21.0-32.0); Chloride 106 mmol/L (98-108); Creatinine, Serum 0.91 mg/dL (0.70-1.20); EST Glomerular Filtration Rate 82 (>60); Globulin 2.7 g/dL (2.2-4.2); Glucose 93 mg/dL (70-99); Potassium 4.2 mmol/L (3.3-5.1); Protein, Total 6.4 g/dL (5.9-8.4); Sodium Level 139 mmol/L (133-145); Total Bilirubin 0.65 mg/dL (0.00-1.30)
[2025-03-14 14:34] LABS: Thyroid Stim Hormone (TSH) 0.541 uIU/mL (0.300-4.200); Vitamin D,25 Hydroxy 61.1 ng/mL (30-100)
--- OUTSIDE RECORDS SUMMARY | 2025-03-14 22:02 | XMS RPT_ITS | CCD ---
Author Organization [facility] Care Team Providers Care Gel Coater Name Role Phone Unavailable Unavailable Unavailable Samia Winkler MD Unavailable DANIEL CORDERO Unavailable Unavailable CHERISE KINSEY Unavailable Unavailable SUDOL, PHILLY Unavailable Unavailable JOB BRIZUELA Unavailable Unavailable SUDOL, PHILLY Unavailable Unavailable NO, PHYSICIAN Unavailable Unavailable Samia Winkler MD Unavailable OLGA LIDIA Butler RN, Nicole Ward Unavailable Unavaildarrell Butler RN RN, Nicole Ward Unavailable UnavailAbhinav Briseno DO Primary Care Provider ELICEO RONQUILLO, DR [place] Primary Care Physician [phone] Magaly PT, Farida Unavailable Unavailable AMY LUNA Referring Unavail able LATOYA IBARRA Attending Unavailabl e SYSTEM, PROVIDER NOT IN Primary Care UnavailMIKKI Klein Attending Unavailable ELICEO RONQUILLO, DR. [place] Primary Care UnavailGABY Long Attending Unavailable DR. ABHINAV MURRY DO Primary Care Unavaildarrell e ELICEO RONQUILLO, DR. [place] Primary Care Unavaildarrell e ELICEO RONQUILLO, DR. [place] Attending UnavailAbhinav Briseno DO Primary Care Provider Abhinav Murry DO Primary Care Provider [phone] ABHINAV MURRY Primary Care Unavailable ABHINAV MURYR Primary Care Unavailable ABHINAV MURRY Primary Care Unavailable VIJAY SMITH Referring Unavailable ABHINAV MURRY Primary Care Unavailable DR ABHINAV MURRY DO Attending Unavailable ELICEO DO, DR [place] Primary Care Unavailable ELICEO DO, DR [place] Attending Unavailable ELICEO DO, DR [place] Primary Care Unavailable Abhinav Murry Primary Care Unavailable Abhinav Murry Attending Unavailable Abhinav Murry Referring Unavailable Quintin Rodríguez Attending Unavailable Abhinav Murry Primary Care Unavailable Abhinav Murry Primary Care Unavailable Abhinav Murry Attending Unavailable Allergies Allergy Classification Reported Allergen(s) Allergy Type Date of Onset Reaction(s) Facility Latex (1 source) Latex Substance Allergy 02-18-2012 Rash [facility] (20 sources) Latex; Translations: [LATEX] drug allergy 02-18-2012 Rash [facility] Work Phone: (2 sources) NKDA; Translations: [NKDA] allergy to substance 03-04-2017 none [facility] Work Phone: (3 sources) Latex 1 Drug allergy [facility] Comment on above: RASH Medications Current Medications Medication Drug Class(es) Dates Sig (Normalized) Sig (Original) acetaminophen 500 mg oral tablet (2 sources) Start: 08-29-2021 acetaminophen 500 mg oral tablet Dose : 1,000 mg = 2 tab(s), Oral, TID, PRN pain or fever, 0 Refill(s) Start Date: 08/29/21 Status: Ordered acetaminophen 250 mg / aspirin 250 mg / caffeine 65 mg oral tablet (4 sources) Platelet Aggregation Inhibitor, Nonsteroidal Anti-inflammatory Drug, Central Nervous System Stimulant, Methylxanthine Start: 03-03-2012 take 1 tablet by mouth every six hours as needed Aspirin-Acetaminoph en-Caffeine (EXCEDRIN) 250-250-65 mg per tablet Take 1 tablet by mouth every 6 hours as needed. 0 03/03/2012 Active acetaminophen 325 mg / HYDROcodone bitartrate 5 mg oral tablet (3 sources) Opioid Agonist Start: 02-16-2023 take 1 tablet by mouth every six hours as needed Hydrocodone-Acetami nophen Active 1 TABLET PO EVERY 6 HOURS NEEDED 10 3 February 16, 2023 azithromycin 250 mg oral tablet (1 source) Macrolide Antimicrobial Start: 09-06-2021 End: 09-11-2021 azithromycin 250 mg oral tablet Take two (2) tablets day 1-then one (1) tablet, Oral, Daily, X 5 day(s), # 6 tab(s), 0 Refill(s), 09/11/21 9:05:00 EST, Pharmacy: [id number], 174, cm, 06/28/21 9:19:00 EDT, Height, 164.5, kg, 06/28/21 9:19:00 EDT, Dosing Weight Start Date: 09/06/21 Stop Date: 09/11/21 Status: Ordered 24 hr buPROPion hydrochloride 150 mg extended release oral tablet (4 sources) Aminoketone Start: 02-06-2024 take 1 tablet by mouth every hour buPROPion XL (WELLBUTRIN XL) 150 mg 24 hr tablet Take 1 tablet by mouth every afternoon. 02/06/2024 Active cholecalciferol 0.125 mg oral tablet (17 sources) Vitamin D Start: 02-06-2023 Cholecalciferol (Vitamin D3) (Vitamin D3) 125 mcg (5,000 unit) Tablet Active 1 UNIT PO DAILY February 05, 2023 11:00pm 82775 IU DAILY Start: 06-28-2021 cholecalcifero l, vitamin D3, 10 mcg (400 unit) cap Take by mouth as directed. 06/28/2021 Active Start: 03-04-2017 [facility] D[facility] 5000 UN IT CAPS 1 tab weekly CHOLECALCIFEROL [id number] Angelic Quintanilla Start: 03-04-2017 [facility] D[facility] 5000 UN IT CAPS 1 tab weekly CHOLECALCIFEROL [id number] Angelic Quintanilla take 1 capsule by mo uth once daily Cholecalciferol (HM VITAMIN D3) 100 MCG (4000 UT) CAPS Take 4,000 Units by mouth daily 0 Active citalopram 40 mg oral tablet (15 sources) Serotonin Reuptake Inhibitor Start: 08-14-2021 take 40 mg by mouth once daily Citalopram Active 40 MG PO DAILY February 02, 2023 11:00pm Start: 06-28-2021 citalopram (CE CHANTAL) 20 MG tablet escitalopram 10 mg oral tablet (15 sources) Serotonin Reuptake Inhibitor Start: 11-02-2018 take 20 mg by mouth once daily Escitalopram Oxalate Active 20 MG PO DAILY November 02, 2018 6:03am Start: 06-14-2018 End: 11-02-2018 take 10 mg by mouth once daily Escitalopram Oxalate Di scontinued 10 MG PO DAILY June 13, 2018 11:00pm November 02, 2018 5:04am Start: 03-04-2017 take 1 tablet by marcela th once daily LEXAPRO 10 MG TABS One tablet by mouth daily ESCITALOPRAM OXALATE [id number] Angelic Quintanilla ESCITALOPRAM OXA LATE (LEXAPRO ORAL) Take by mouth. Active ibuprofen 600 mg oral tablet (9 sources) Nonsteroidal Anti-inflammatory Drug Start: 07-03-2022 End: 02-03-2023 take 600 mg by mouth every eight hours as needed Ibuprofen Active 600 MG PO EVERY 8 HOURS NEEDED February 03, 2023 12:28am naproxen 500 mg oral tablet (2 sources) Nonsteroidal Anti-inflammatory Drug Start: 08-17-2023 take 500 mg by mouth twice daily Naproxen Active 500 MG PO TWICE A DAY August 17, 2023 12:00am nicotine 4 mg oral transmucosal gum (1 source) Start: 06-28-2021 nicotine 4 mg oral transmucosal gum Dose : 4 mg = 1 EA, Chewed, q2h, PRN as needed for smoking cessation, # 120 EA, 1 Refill(s), Pharmacy: [id number], Nicotine dependence, 174, cm, 06/28/21 9:19:00 EDT, Height, kg, 06/28/21 9:19:00 EDT, Dosing Weight Start Date: 06/28/21 Status: Ordered norethindrone 0.35 mg oral tablet (9 sources) Start: 05-30-2020 take 0.35 mg by mouth once daily Norethindrone (Contraceptive) Active 0.35 MG PO DAILY July 06, 2020 12:00am nystatin [id number] unt/ml oral suspension (2 sources) Polyene Antifungal Start: 11-08-2024 nystatin (MYCOSTATIN) 100,000 unit/mL suspension Indications: Oral thrush Take 5 mL by mouth four times daily. 1tsp swish in mouth for several minutes, then swallow (or expectorate) 4 times daily until gone. 200 mL 11/08/2024 Active omeprazole 40 mg delayed release oral capsule (20 sources) Proton Pump Inhibitor Start: 10-07-2018 take 40 mg by mouth once daily Omeprazole Active 40 MG PO DAILY October 07, 2018 12:00am Start: 03-04-2017 End: 04-03-2017 take 1 tablet by mouth once daily OMEPRAZOLE 40 MG CPDR One tablet by mouth daily OMEPRAZOLE [id number] Samia Winkler MD predniSONE 10 mg oral tablet (8 sources) Start: 03-02-2024 predniSONE (DE LTASONE) 10 mg tablet Take 4 tabs daily for 3 days, then 2 tabs daily for 3 days, then 1 tab daily for 3 days with food. 21 tablet 03/02/2024 Active Start: 08-17-2023 take 50 mg by mouth once daily Prednisone Active 50 MG PO DAILY August 17, 2023 12:00am Start: 02-16-2023 take 60 mg by mouth once daily Prednisone Active 60 MG PO DAILY February 15, 2023 11:00pm tiZANidine 4 mg oral tablet (2 sources) Central alpha-2 Adrenergic Agonist Start: 08-17-2023 take 4 mg by mouth every eight hours Tizanidine Active 4 MG PO Q8H August 17, 2023 12:00am Varenicline (2 sources) Partial Cholinergic Nicotinic Agonist Start: 07-06-2020 take 1 capsule by mouth twice daily Varenicline Active 1 CAP PO TWICE A DAY July 06, 2020 12:00am Vitamin D3 (3 sources) Start: 06-28-2021 Vitamin D3 400 0 IU, Oral, qDay, 0 Refill(s) Start Date: 06/28/21 Status: Ordered Start: 06-28-2021 Vitamin D3 qDa y, 0 Refill(s) Start Date: 06/28/21 Status: Ordered Completed/Discontinued Medications Medication Drug Class(es) Dates Sig (Normalized) Sig (Original) raNITIdine 150 mg oral tablet (7 sources) Histamine-2 Receptor Antagonist Start: 03-04-2017 take 1 tablet by mouth twice daily ACID CONTROL 150 MG TABS One tablet by mouth twice daily RANITIDINE HCL [id number] Angelic A Quintanilla RANITIDINE HCL O RAL Take by mouth. Active traMADol hydrochloride 50 mg oral tablet (6 sources) Opioid Agonist Start: 10-07-2018 End: 10-10-2018 take 50 mg by mouth every four hours as needed Tramadol Discontinued 50 MG PO EVERY 4 HOURS NEEDED 20 3 October 07, 2018 12:00am October 10, 2018 12:08am Problems Active Problems Problem Classification Problem Date Documented Date Episodic/Chronic Coma; stupor; and brain damage (4 sources) Daytime somnolence; Translations: [Somnolence] 07-04-2021 Episodic Diabetes mellitus without complication (1 source) Hyperglycemia, unspecified; Translations: [Hyperglycemia, unspecified] Onset: 03-02-2025 Episodic E Codes: Fall (4 sources) Fall on same level from slipping, tripping and stumbling without subsequent striking against object, initial encounter; Translations: [Fall due to wet surface] 02-03-2023 Episodic Esophageal disorders (14 sources) Gastroesophageal reflux disease; Translations: [Gastroesophageal reflux disease without esophagitis] Onset: 03-04-2017 03-04-2017 Chronic Essential hypertension (6 sources) Hypertensive disorder; Translations: [Essential (primary) hypertension] 07-08-2020 Chronic Malaise and fatigue (4 sources) Fatigue; Translations: [Chronic fatigue, unspecified] 07-04-2021 Chronic Malaise and fatigue (3 sources) Fatigue 12-26-2020 Episodic Mood disorders (9 sources) Depressive disorder; Translations: [Recurrent major depressive episodes, moderate ] 03-04-2017 Chronic Mycoses (1 source) Candidiasis of mouth; Translations: [Candidal stomatitis] 11-08-2024 Episodic Nonspecific chest pain (5 sources) Chest pain; Translations: [Chest pain, unspecified] 07-11-2022 Episodic Nutritional deficiencies (8 sources) Vitamin D deficiency; Translations: [Vitamin D deficiency, unspecified] Onset: 03-02-2025 07-04-2021 Chronic Osteoarthritis (3 sources) Osteoarthritis of knee 06-28-2021 Chronic Other connective tissue disease (3 sources) Calcaneal spur 12-26-2020 Episodic Other connective tissue disease (2 sources) Pain in finger of right hand; Translations: [Pain in right finger(s)] 03-02-2024 Episodic Other injuries and conditions due to external causes (1 source) Foreign body in vagina; Translations: [Foreign body in vulva and vagina, initial encounter] 11-16-2024 Episodic Other lower respiratory disease (3 sources) Snoring 12-26-2020 Episodic Other nutritional; endocrine; and metabolic disorders (6 sources) Overweight; Translations: [Body mass index (BMI) 50-59.9 , adult] Onset: 03-04-2017 03-04-2017 Chronic Other nutritional; endocrine; and metabolic disorders (4 sources) Body mass index (BMI) 50-59.9, adult; Translations: [Body mass index (BMI) 50-59.9 , adult] Onset: 03-04-2017 03-04-2017 Chronic Other nutritional; endocrine; and metabolic disorders (7 sources) Morbid obesity; Translations: [Morbid (severe) obesity due to excess calories] Onset: 04-16-2021 04-16-2021 Chronic Other nutritional; endocrine; and metabolic disorders (12 sources) Body mass index 40+ - severely obese; Translations: [Morbid (severe) obesity due to excess calories] Onset: 02-02-2018 04-13-2020 Chronic Other screening for suspected conditions (not mental disorders or infectious disease) (3 sources) Encounter for screening mammogram for malignant neoplasm of breast; Translations: [Encounter for screening mammogram for malignant neoplasm of breast] Onset: 12-31-2024 Episodic Other upper respiratory infections (8 sources) Acute upper respiratory infection; Translations: [Acute upper respiratory infection, unspecified] Onset: 09-09-2021 Episodic Residual codes; unclassified (3 sources) Tobacco user 04-13-2020 Episodic Spondylosis; intervertebral disc disorders; other back problems (7 sources) Acute low back pain; Translations: [Low back pain] Onset: 05-06-2017 05-06-2017 Episodic Sprains and strains (20 sources) Strain of knee; Translations: [Strain of unspecified muscle(s) and tendon(s) at lower leg level, left leg, initial encounter] 03-15-2022 Episodic Substance-related disorders (5 sources) Tobacco dependence syndrome; Translations: [Nicotine dependence, unspecified, uncomplicated] Onset: 03-04-2017 03-04-2017 Chronic Substance-related disorders (3 sources) Nicotine dependence 05-30-2020 Chronic Suicide and intentional self-inflicted injury (3 sources) Suicidal thoughts; Translations: [Suicidal ideations] 02-15-2023 Episodic Superficial injury; contusion (10 sources) Contusion of knee; Translations: [Contusion of left knee, initial encounter] 02-03-2023 Episodic Urinary tract infections (2 sources) Urinary tract infection, site not specified; Translations: [Urinary tract infection, site not specified] Onset: 07-18-2022 Episodic Past or Other Problems Problem Classification Problem Date Documented Date Episodic/Chronic Biliary tract disease (5 sources) Gallstone; Translations: [Calculus of gallbladder without cholecystitis without obstruction] Onset: 03-04-2017 03-04-2017 Episodic Other connective tissue disease (3 sources) Pain in left hand; Translations: [Left hand pain] Onset: 05-06-2017 05-06-2017 Episodic Other connective tissue disease (4 sources) Tendinitis; Translations: [Enthesopathy, unspecified] Onset: 03-03-2012 03-03-2012 Episodic Other connective tissue disease (1 source) Pain in right finger(s); Translations: [Pain of finger of right hand] Onset: 03-02-2024 Episodic Other lower respiratory disease (1 source) Shortness of breath; Translations: [Shortness of breath] Onset: 11-18-2024 Episodic Other nervous system disorders (3 sources) Numbness of hand; Translations: [Anesthesia of skin] Onset: 05-06-2017 05-06-2017 Episodic Other non-traumatic joint disorders (6 sources) Shoulder pain; Translations: [Pain in left ankle and joints of left foot] Onset: 05-06-2017 05-06-2017 Episodic Other non-traumatic joint disorders (4 sources) Arthralgia of the ankle and/or foot; Translations: [Pain in unspecified ankle and joints of unspecified foot] Onset: 03-31-2012 Resolved: 04-28-2012 04-28-2012 Episodic Results Test Name Value Interpretation Reference Range Facility MA MAMMOGRAM SCREENING BILAT ERAL W/TOMOon 01-08-2025 MA MAMMOGRAM SCREENING BILATERAL W/TESSA ORIGINAL FROM: [facility] LEEDS [address], [place] [address] PROCEDURE FOR: MARY TOTH [address] [facility] [address] [place] [id number] Home: PID#: [id number] [id number] Exam#: [id number] : 1985 Age: 39 TO: ABHINAV MURRY DO [address] [place] [phone] Fax: NO FAX EXAMINATION: SCREENING DIGITAL BILATERAL MAMMOGRAM WITH TOMOSYNTHESIS, 12/31/2024 1:57 pm TECHNIQUE: Screening mammography of the bilateral breasts was performed with tomosynthesis. 2D standard and 3D tomosynthesis combination imaging performed through both breasts in the MLO and CC projection. Computer aided detection was utilized in the interpretation of this exam. COMPARISON: None. HISTORY: Breast cancer screening. Baseline. FINDINGS: BREAST DENSITY: The breasts are almost entirely fatty. Benign calcifications are present in both breasts. There are no significant masses or calcifications. IMPRESSION: No mammographic evidence of malignancy. Continued screening with annual mammograms is recommended. [facility] risk calculations, generated with the history provided, report this patient's 10 year risk and lifetime risk for developing breast cancer at 2.4% and 16.9%, respectively. Based on this assessment tool, if the patient's calculated lifetime risk is below 20%, then the patient is considered at average risk for developing breast cancer. If the patient's calculated lifetime risk is at or above 20%, then the patient is considered high risk for developing breast cancer and may be a candidate for supplemental breast MRI screening in addition to annual mammographic screening per the [place] [employer]. BIRADS: BI-RADS: 2: Benign RECALL: 1 year screening RECALL TYPE: mammo LETTER SENT: Normal BI-RADS 1 and 2 Interpreted by: Avinash Mahajan MD Preliminary Report By: Avinash Mahajan MD Electronically signed By Avinash Mahajan MD Dictated Date: 01/08/2025 3:56:57 AM Prelim Date: 01/08/2025 3:59:15 AM Sign Date: 01/08/2025 3:59:15 AM Ordering Provider: ABHINAV MURRY Office Administration: FRANKLIN FRAGOSO RT (R)(M) letter sent: Normal BI-RADS 1 and 2 Mammogram BI-RADS: 2 Benign Normal [facility] CNOVon 11-16-2024 CNOV Office Visit ([facility] ) -------- MARY TOTH ([id number]) 1985 F Date Time Provider Department 11/16/24 5:30 PM ARIADNA CLEMENTE During your visit today, we recorded the following information about you: Temperature Pulse Respiration Blood pressure 98.4 degrees 78/minute 18/minute 128/82 Weight 179.9 kg Ariadna Clemente, UBALDO.SUPERVISOR BLAST FURNACE 11/16/2024 6:32 PM Signed Subjective Vaginal Problem Pertinent negatives include no chills, fever or myalgias. Pt is a 39 y/o female who presents with concerns that a tampon is lodged in vaginal canal x 3 days. Pt reports placing tampon on Friday and proceeded to have sexual intercourse before taking it out by mistake. Pt tried to retrieve tampon herself but was unsuccessful as she could not feel the string. Pt reports increased odor and abnormal brown discharge over the weekend. No reports of fever, chills. No reports of increased pain. Review of Systems Constitutional: Negative for chills and fever. Genitourinary: Positive for vaginal discharge. Negative for dysuria, frequency and urgency. Pt has sensation that tampon is stuck in vaginal canal with increased odor and abnormal brown discharge Musculoskeletal: Negative for myalgias. BP 128/82 Pulse 78 Temp 36.9 ?C (98.4 ?F) (Tympanic) Resp 18 Wt (!) 179.9 kg (396 lb 9.7 oz) LMP 04/03/2015 (Approximate) SpO2 98% History reviewed. No pertinent past medical history. PAST SURGICAL HISTORY Procedure Laterality Date ECISION OF LINGUAL TONSIL ~ age 8. MYRINGOTOMY ASPIRAND/EUSTACHIAN TUBE NFLTJ ANES Myringotomy/tubes ALLERGIES Latex MEDICATIONS nystatin (MYCOSTATIN) 100,000 unit/mL suspension Take 5 mL by mouth four times daily. 1tsp swish in mouth for several minutes, then swallow (or expectorate) 4 times daily until gone. buPROPion XL (WELLBUTRIN XL) 150 mg 24 hr tablet Take 1 tablet by mouth every afternoon. cholecalciferol, vitamin D3, 10 mcg (400 unit) cap Take by mouth as directed. citalopram (CELEXA) 40 mg tablet Take 40 mg by mouth once daily. omeprazole (PRILOSEC) 40 mg capsule Take 40 mg by mouth once daily. predniSONE (DELTASONE) 10 mg tablet Take 4 tabs daily for 3 days, then 2 tabs daily for 3 days, then 1 tab daily for 3 days with food. (Patient not taking: Reported on 11/08/2024) Lofizzf-Cgexqrcvcmdld-Bz ffeine (EXCEDRIN) 250-250-65 mg per tablet Take 1 tablet by mouth every 6 hours as needed. FAMILY HISTORY Problem Relation Age of Onset Diabetes Unknown Heart Unknown Lipids Unknown Cancer Maternal Aunt Breast Cancer Maternal Aunt Cancer Maternal Aunt Social History Tobacco Use Smoking status: Every Day Current packs/day: 1.00 Types: Cigarettes Smokeless tobacco: Never Substance Use Topics Alcohol use: Yes Comment: Infrequent. 5-10 per year. Objective Physical Exam Exam conducted with a sleeping car conductor present. Genitourinary: General: Normal vulva. Pubic Area: No rash. Vagina: Foreign body present. No signs of injury. Bleeding (active menstrual cycle) present. Participation of a fellow, resident, medical student, or advanced practice provider student in performing the sensitive examination was discussed with the patient or authorized pharmacy sales representative. The patient or authorized pharmacy sales representative has agreed to proceed with the sensitive examination. (Sensitive examination includes inspection and/or palpation of the breasts, pelvis, prostate and anorectal regions) ASSESSMENT/PLAN: 1. Foreign body in vagina, initial encounter - ICD9: 939.2, E915, ICD10: T19.2XXA - foreign body extracted from vaginal canal during visit using sponge forceps with sleeping car conductor present - no injury noted to the vaginal canal - pt instructed to return or see PCP if experiencing any pain and/or fever. - pt agreeable to plan. Lacy Wilkinson TEACHING PROVIDER (Physician/PA/OPERATIONS LABEL CLERK) NOTE OF PERSONAL INVOLVEMENT IN CARE: I have personally seen and examined the patient and performed the medical decision-making components. I have reviewed the Advanced Practice Registered Nurse (OPERATIONS LABEL CLERK) Student's documentation and verified the findings in the note as written. Any additions or changes are noted in bold/italics. Signature: Ariadna Clemente Date: 11/16/2024 Time: 6:32 PM Lacy Wilkinson 11/16/2024 6:25 PM Signed ASSESSMENT/PLAN: 1. Foreign body in vagina, initial encounter - ICD9: 939.2, E915, ICD10: T19.2XXA - foreign body extracted from vaginal canal during visit with sleeping car conductor present - no injury noted to the vaginal canal - pt instructed to return or see PCP if experiencing increase pain and/or fever. - pt agreeable to plan. Allergies As of Date: 11/16/2024 Noted Allergy Reaction LATEX 02/18/2012 2 - Rash Date Reviewed: 11/16/2024 Reviewed by: Carmen Sun LPN - Fully Assessed Reason for Visit: Vaginal Problem [117] Cmt: Tampon stuck x several da (more content not included)... Normal [facility] CNOVon 11-08-2024 CNOV Office Visit ([facility] ) -------- MARY TOTH ([id number]) 1985 F Date Time Provider Department 11/08/24 2:15 PM ARIADNA CLEMENTE WSTR During your visit today, we recorded the following information about you: Temperature Pulse Respiration Blood pressure 97.5 degrees 78/minute 18/minute 124/82 Weight 183.3 kg Ariadna Clemente APRN.SUPERVISOR BLAST FURNACE 11/08/2024 2:42 PM Signed Subjective Sore Throat Pertinent negatives include no congestion or coughing. Mary Toth is a 39 year old female who presents with sore throat, trouble swallowing, sore tongue x 1 day. She denies fever, chills, URI symptoms. Denies recent antibiotic use or new medications. She took tylenol for sore throat. Review of Systems Constitutional: Negative for fever. HENT: Positive for sore throat. Negative for congestion. Respiratory: Negative for cough. Cardiovascular: Negative. BP 124/82 Pulse 78 Temp 36.4 ?C (97.5 ?F) (Tympanic) Resp 18 Wt (!) 183.3 kg (404 lb 1.7 oz) LMP 04/03/2015 (Approximate) SpO2 99% History reviewed. No pertinent past medical history. PAST SURGICAL HISTORY Procedure Laterality Date ECISION OF LINGUAL TONSIL ~ age 8. MYRINGOTOMY ASPIRAND/EUSTACHIAN TUBE NFLTJ ANES Myringotomy/tubes ALLERGIES Latex MEDICATIONS buPROPion XL (WELLBUTRIN XL) 150 mg 24 hr tablet Take 1 tablet by mouth every afternoon. cholecalciferol, vitamin D3, 10 mcg (400 unit) cap Take by mouth as directed. citalopram (CELEXA) 40 mg tablet Take 40 mg by mouth once daily. omeprazole (PRILOSEC) 40 mg capsule Take 40 mg by mouth once daily. predniSONE (DELTASONE) 10 mg tablet Take 4 tabs daily for 3 days, then 2 tabs daily for 3 days, then 1 tab daily for 3 days with food. (Patient not taking: Reported on 11/08/2024) Jegvloc-Uwkmebhnfvqno-Nh ffeine (EXCEDRIN) 250-250-65 mg per tablet Take 1 tablet by mouth every 6 hours as needed. FAMILY HISTORY Problem Relation Age of Onset Diabetes Unknown Heart Unknown Lipids Unknown Cancer Maternal Aunt Breast Cancer Maternal Aunt Cancer Maternal Aunt Social History Tobacco Use Smoking status: Every Day Current packs/day: 1.00 Types: Cigarettes Smokeless tobacco: Never Substance Use Topics Alcohol use: Yes Comment: Infrequent. 5-10 per year. Objective Physical Exam Vitals and nursing note reviewed. Constitutional: Appearance: Normal appearance. HENT: Mouth/Throat: Mouth: Mucous membranes are moist. Pharynx: No oropharyngeal exudate or posterior oropharyngeal erythema. Cardiovascular: Rate and Rhythm: Normal rate. Pulmonary: Effort: Pulmonary effort is normal. Neurological: Mental Status: She is alert. ASSESSMENT/PLAN: 1. Sore throat - ICD9: 462, ICD10: J02.9 (primary diagnosis) - suspect viral - Group A strep molecular testing negative - Discussed supportive care treatment with fluids, rest and analgesia. - STREP A MOLECULAR (POC) 2. Oral thrush - ICD9: 112.0, ICD10: B37.0 - NYSTATIN 100,000 UNIT/ML ORAL SUSPENSION - Follow-up with your PCP in 3-5 days if symptoms have not improved or sooner if symptoms worsen - Discussed red flags and need for immediate medical evaluation if any occur. - Discussed supportive care treatment with fluids, rest and analgesia. - Discussed expected course of illness NARA Berrios Kathy, APRN.CNP 11/08/2024 2:40 PM Signed ASSESSMENT/PLAN: 1. Sore throat - ICD9: 462, ICD10: J02.9 (primary diagnosis) - suspect viral - Group A strep molecular testing negative - Discussed supportive care treatment with fluids, rest and analgesia. - STREP A MOLECULAR (POC) 2. Oral thrush - ICD9: 112.0, ICD10: B37.0 - NYSTATIN 100,000 UNIT/ML ORAL SUSPENSION - Follow-up with your PCP in 3-5 days if symptoms have not improved or sooner if symptoms worsen - Discussed red flags and need for immediate medical evaluation if any occur. - Discussed supportive care treatment with fluids, rest and analgesia. - Discussed expected course of illness Ariadna Clemente APRN.CNP Allergies As of Date: 11/08/2024 Noted Allergy Reaction LATEX 02/18/2012 2 - Rash Date Reviewed: 11/08/2024 Reviewed by: Carmen Sun LPN - Fully Assessed Reason for Visit: Sore Throat [200] Cmt: ST, sore tongue and trouble swallowing x 1 day Primary Visit Diagnosis:Sore throat [J02.9] Other Visit Diagnosis:Oral thrush [B37.0] Order(s):STREP A MOLECULAR (POC) [3603345] Order #: [id number]. #:[id number] nystatin (MYCOSTATIN) 100,000 unit/mL suspensionTake 5 mL by mouth four times daily. 1tsp swish in mouth for several minutes, then swallow (or expectorate) 4 times daily until gone.Disp: 200 mLRfl: 0 Prescriptions as of 11/08/2024 - nystatin (MYCOSTATIN) 100,000 unit/mL suspension Take 5 mL by mouth four times daily. 1tsp swish in mouth for several minutes, then (more content not included)... Normal [facility] STREP A MOLECULAR (POC)on Procedural Control Valid [facility] Strep A (POCT) Negative Negative [facility] 12 Lead EKGon 11-05-2024 12 Lead EKG [facility] Cardi[facility] Services [address] [place] [address] 12 Lead EKG 11/05/24 1715 MR#: [id number] Acct: [id number] Name: MARY TOTH Rep #: [id number] : 1985 39 From: Bryon Saxena MD Attending Dr: Status: DEP ER Ordering Dr: Quintin Rodríguez DO Date: 11/05/24 Location: ED Sex: F C Admitted: Test Reason : SOB Blood Pressure : */* mmHG Vent. Rate : 67 BPM Atrial Rate : 67 BPM P-R Int : 144 ms QRS Dur : 90 ms QT Int : 420 ms P-R-T Axes : 39 41 25 degrees QTcB Int : 443 ms Normal sinus rhythm Normal ECG Confirmed by EMILIO BUSTOS, CATRINA ([id number]), editorial intern ORLANDO GÓMEZ ([id number]) on 11/08/2024 8:17:42 AM Referred By: Confirmed By: CATRINA SAXENA MD 11/08/24 0817 Date Bryon Saxena MD CC: Dr. Quintin Rodríguez DO; Dr. Abhinav Murry DO Signed Normal [facility] Chest PA and Lateralon 11-05 Chest PA and Lateral [facility] Imaging Services [address] [place], [place] [id number] Chest PA and Lateral MR#: [id number] Acct: [id number] Name: MARY TOTH Rep #: [id number] : 1985 F 39 From: Zoë Siegel MD PCP: Dr. Abhinav Murry DO Status: REG ER Study: Chest PA and Lateral Date of Exam: 11/05/24 Exam# [id number] Ordering Dr: Quintin Rodríguez DO PROCEDURE: CHEST PA AND LATERAL REASON FOR EXAM: Dyspnea TECHNIQUE: Frontal and lateral views of the chest. COMPARISON: 07/06/2020 FINDINGS: The lungs are clear. No pleural effusion or pneumothorax. The cardiomediastinal silhouette is unremarkable. No acute osseous or soft tissue abnormality. RAD/Chest PA and Lateral IMPRESSION: 1. No acute cardiopulmonary process. [facility] CC: Dr. Quintin Rodríguez DO; Dr. Abhinav Murry DO Campaign Director: Signed Normal [facility] Emergency Department Summary on 11-05-2024 Emergency Department Summary [facility] Medical Records Department [address] [place] [address] Emergency Department Summary 11/05/24 MR#: [id number] Acct: [id number] Name: MARY TOTH Rep #: [id number] : 1985 39 From: Quintin Rodríguez DO PCP: Dr. Abhinav Murry DO Status:DEP ER Location: ED HPI History of Present Illness Chief Complaint: Shortness of Breath Informant: patient Onset/Context/Timing Onset: Today Context: gradual Timing: Continuous Quality: Positive for Dyspnea on exertion Worsened by: Exertion Relieved by: Nothing Associated Symptoms ear pain; Negative for cough, rhinorrhea, post nasal drip, fever, sore throat, chills, sweats, clear sputum, white sputum, yellow sputum or green sputum Chest Pain: Positive for Tightness (Right chest and substernal) Narrative Narrative: Patient presents with shortness of breath and right-sided chest pain that began today. Patient states it is gradually gotten worse today. Patient states her breathing is worse with exertion. Patient states it is constant. Patient states she was recently diagnosed with right otitis media. Patient denies any fevers or chills. Patient describes her pain as a tightness across the right side of her chest and into the substernal area. Patient denies any cough. Patient does admit to some diarrhea. [facility] Medical History Depression GERD (gastroesophageal reflux disease) Home Medications ???Medication ???Instructions ???Recorded ???Last Taken ???Type omeprazole 40 mg capsule,delayed 40 mg PO DAILY 10/07/18 11/05/24 H istory release citalopram 40 mg tablet 40 mg PO DAILY 02/03/23 11/05/24 H istory ibuprofen 600 mg tablet 600 mg PO Q8H PRN PRN pain #20 Unknown Rx TABLETS cholecalciferol (vitamin D3) 125 1 unit PO DAILY 02/06/23 Unknown H istory mcg (5,000 unit) tablet (Vitamin D3) hydrocodone-acetaminophe n 5-325mg 1 tab PO Q6H PRN PRN Pain 3 days 02/16/23 Unknown Rx 5mg-325mg #10 TABLETS naproxen 500 mg tablet 500 mg PO BID #30 tabs 08/17/23 Un known Rx bupropion HCl PO 11/05/24 11/05/24 History Allergy/AdvReac Type Severity Reaction Status Date / Time No Known Allergies Allergy Verified 11/05/24 17:08 Surgical History History of surgical removal of ganglion cyst Hx of tonsillectomy Social History Smoking Status: Current every day smoker tobacco type: cigarettes substance use type: does not use ROS ROS ED Constitutional Constitutional ED: Denies chills or fever(s) Eyes Eyes: Denies blurry vision or change in vision ENT ENT ED: Denies rhinorrhea or sore throat Cardiovascular Cardiovascular: Reports chest pain; Denies palpitations Respiratory/Chest Respiratory/Chest: Reports dyspnea; Denies cough Gastrointestinal Gastrointestinal: Reports diarrhea; Denies nausea or vomiting Genitourinary Genitourinary ED: Denies dysuria or hematuria Musculoskeletal Musculoskeletal: Denies back pain or neck pain Integumentary Denies abscess or rash Neurologic Neurologic: Denies headache(s) or weakness Allergic/Immunologic Allergic/Immunologic ED: Denies mouth swelling or urticaria EXAM Physical Exam Const Vital Signs: 11/05/24 16:43 11/05/24 17:04 11/05/24 17:06 Temperature 97.4 F L Temperature Source Temporal Pulse Rate 91 Respiratory Rate 18 Respiratory Effort Short of Breath Short of Breath Respiratory Depth Shallow Respiratory Pattern Hyperpnea Blood Pressure 144/60 H Blood Pressure Mean 88 Pulse Ox 100 Oxygen Delivery Method Room Air Room Air Positive well nourished and well developed Constitutional Narrative: BMI of 61.0 General Appearance ED: well developed and NAD HEENT Reports moist mucous membranes Neck supple and no JVD Resp normal respiratory effort Auscultation: diminished lung sounds Cardio regular rate and regular rhythm GI non-tender and non-distended Palpation: soft Neuro oriented x3, CN's II-XII intact bilaterally and no sensory deficits noted [place] Coma Scale: document GCS findings Spontaneous Obeys Commands Oriented 15 Sensorium / Orientation: alert Speech: speech normal Motor Exam: strength 5/5 throughout Psych mental status grossly normal MDM MDM MDM Narrative Medical decision making narrative: Differential diagnosis includes cardiac dysrhythmia, cardiac ischemia, pneumonia, bronchitis, viral illness, and anxiety. EKG will be obtained to assess for cardiac dysrhythmia and cardiac ischemia. Chest x-ray will be obtained to assess for pneumonia, bronchitis, pneumothorax. COVID-19, influenza, and RSV PCR will be obtained to assess for viral ill (more content not included)... Normal [facility] M100.678on 11-05-2024 M100.678 Pending SARS-CoV-2 (COVID 19) Negative INFLUENZA A Negative INFLUENZA B Negative RSV PCR Negative Normal [facility] Comment on above: Performed By: #### M 100.678 #### [facility] [address] [facility] [place], [address] CBC-Complete Blood Cnt No Di ffon 09-09-2024 Erythrocyte distribution width (RBC) [Ratio] 14.7 % High 11.6-14.6 [facility] Comment on above: Performed By: #### L 500.4050, L500.4100, L501.9520, L506.1000, L100.0500 #### [facility] [address] [facility] [place], [place], [id number] Hematocrit (Bld) [Volume fraction] 44.4 % Normal 37-47 [facility] Comment on above: Performed By: #### L 500.4050, L500.4100, L501.9520, L506.1000, L100.0500 #### [facility] [address] [place], [address] Hemoglobin (Bld) [Mass/Vol] 14.2 g/dL Normal 12.0-15.0 [facility] Comment on above: Performed By: #### L 500.4050, L500.4100, L501.9520, L506.1000, L100.0500 #### [facility] [address] [place], [address] MCH (RBC) [Entitic mass] 29.3 pg Normal 27.0-32.0 [facility] Comment on above: Performed By: #### L 500.4050, L500.4100, L501.9520, L506.1000, L100.0500 #### [facility] [address] [place], [address] MCHC (RBC) [Mass/Vol] 32.0 g/dL Normal 32-36 [facility] Comment on above: Performed By: #### L 500.4050, L500.4100, L501.9520, L506.1000, L100.0500 #### [facility] [address] [place], [address] MCV (RBC) [Entitic vol] 91.7 fL Normal 81-99 [facility] Comment on above: Performed By: #### L 500.4050, L500.4100, L501.9520, L506.1000, L100.0500 #### [facility] [address] [place], [address] Platelet mean volume (Bld) [Entitic vol] 11.1 fL Normal 6.2-12.0 [facility] Comment on above: Performed By: #### L 500.4050, L500.4100, L501.9520, L506.1000, L100.0500 #### [facility] [address] [place], [address] Platelets (Bld) [#/Vol] 274 10*3/uL Normal 150-450 [facility] Comment on above: Performed By: #### L 500.4050, L500.4100, L501.9520, L506.1000, L100.0500 #### [facility] [address] [place], [address] RBC (Bld) [#/Vol] 4.84 10*6/uL Normal 4.2-5.4 [facility] Comment on above: Performed By: #### L 500.4050, L500.4100, L501.9520, L506.1000, L100.0500 #### [facility] [address] [place], [address] RDW SD 50.2 fl High 35.1-43.9 [facility] Comment on above: Performed By: #### L 500.4050, L500.4100, L501.9520, L506.1000, L100.0500 #### [facility] [address] [place], [address] WBC (Bld) [#/Vol] 7.2 10*3/uL Normal 4.4-11.0 [facility] Comment on above: Performed By: #### L 500.4050, L500.4100, L501.9520, L506.1000, L100.0500 #### [facility] [address] [place], [address] Comprehensive Metabolic Prof [facility] 09-09-2024 Albumin [Mass/Vol] 3.3 g/dL Normal 3.2-5.0 [facility] Comment on above: Performed By: #### L 500.4050, L500.4100, L501.9520, L506.1000, L100.0500 #### [facility] [address] [place], [address] Albumin/Globulin [Mass ratio] 0.9 {ratio} Normal 0.9-2.4 [facility] Comment on above: Performed By: #### L 500.4050, L500.4100, L501.9520, L506.1000, L100.0500 #### [facility] [address] [place], [address] ALK P 80 U/L Normal 45-117 [facility] Comment on above: Performed By: #### L 500.4050, L500.4100, L501.9520, L506.1000, L100.0500 #### [facility] [address] [place], [address] ALT [Catalytic activity/Vol] 23 U/L Normal 13-56 [facility] Comment on above: Performed By: #### L 500.4050, L500.4100, L501.9520, L506.1000, L100.0500 #### [facility] [address] [place], [address] AST [Catalytic activity/Vol] 15 U/L Normal 15-37 [facility] Comment on above: Performed By: #### L 500.4050, L500.4100, L501.9520, L506.1000, L100.0500 #### [facility] [address] [place], [address] Bilirubin [Mass/Vol] 0.30 mg/dL Normal 0.20-1.00 [facility] Comment on above: Result Comment: For patients on eltrombopag therapy, use of Dimension [place] TBIL is not recommended. Performed By: #### L 500.4050, L500.4100, L501.9520, L506.1000, L100.0500 #### [facility] [address] [place], [address] BUN/CRE 15.7 RATIO Normal 10-20 [facility] Comment on above: Performed By: #### L 500.4050, L500.4100, L501.9520, L506.1000, L100.0500 #### [facility] [address] [place], [address] CA,Total 8.6 mg/dL Normal 8.5-10.1 [facility] Comment on above: Performed By: #### L 500.4050, L500.4100, L501.9520, L506.1000, L100.0500 #### [facility] [address] [place], [address] Chloride [Moles/Vol] 106 mmol/L Normal 98-107 [facility] Comment on above: Performed By: #### L 500.4050, L500.4100, L501.9520, L506.1000, L100.0500 #### [facility] [address] [place], [address] CO2 [Moles/Vol] 24.0 mmol/L Normal 21.0-32.0 [facility] Comment on above: Performed By: #### L 500.4050, L500.4100, L501.9520, L506.1000, L100.0500 #### [facility] [address] [place], [address] Creatinine [Mass/Vol] 0.83 mg/dL Normal 0.55-1.02 [facility] Comment on above: Result Comment: The validity of the calculated GFR GFRAA in patients over 70 years has not been determined. Clinical correlation is essential. Performed By: #### L 500.4050, L500.4100, L501.9520, L506.1000, L100.0500 #### [facility] [address] [place], [address] EST GFR - AA 98 mL/min Normal >60 [facility] Comment on above: Result Comment: Afri can Citizen [place] GFR Calc Performed By: #### L 500.4050, L500.4100, L501.9520, L506.1000, L100.0500 #### [facility] [address] [place], [address] GAP 6 Normal 5-15 [facility] Comment on above: Performed By: #### L 500.4050, L500.4100, L501.9520, L506.1000, L100.0500 #### [facility] [address] [place], [address] GFR/1.73 sq M.predicted among non-blacks MDRD (S/P/Bld) [Vol rate/Area] 81 mL/min/{1.73_m2} Normal >60 [facility] Comment on above: Result Comment: Non- GFR Calc Performed By: #### L 500.4050, L500.4100, L501.9520, L506.1000, L100.0500 #### [facility] [address] [place], [address] Globulin (S) [Mass/Vol] 3.7 g/dL Normal 2.2-4.2 [facility] Comment on above: Performed By: #### L 500.4050, L500.4100, L501.9520, L506.1000, L100.0500 #### [facility] [address] [place], [address] Glucose [Mass/Vol] 114 mg/dL High 74-106 [facility] Comment on above: Result Comment: Fast ing Glucose result from 100 to 125 mg/dL suggests IMPAIRED HOMEOSTASIS per A.D.A. criteria. Performed By: #### L 500.4050, L500.4100, L501.9520, L506.1000, L100.0500 #### [facility] [address] [place], [address] Potassium [Moles/Vol] 4.3 mmol/L Normal 3.5-5.1 [facility] Comment on above: Performed By: #### L 500.4050, L500.4100, L501.9520, L506.1000, L100.0500 #### [facility] [address] [place], [address] Sodium [Moles/Vol] 136 mmol/L Normal 136-145 [facility] Comment on above: Performed By: #### L 500.4050, L500.4100, L501.9520, L506.1000, L100.0500 #### [facility] [address] [place], [address] T PROT 7.0 g/dL Normal 6.4-8.2 [facility] Comment on above: Performed By: #### L 500.4050, L500.4100, L501.9520, L506.1000, L100.0500 #### [facility] [address] [place], [address] Urea nitrogen [Mass/Vol] 13 mg/dL Normal 7-18 [facility] Comment on above: Performed By: #### L 500.4050, L500.4100, L501.9520, L506.1000, L100.0500 #### [facility] [address] [place], [address] Lipid Profileon 09-09-2024 Cholesterol [Mass/Vol] 183 mg/dL Normal 200 [facility] Comment on above: Result Comment: <200 mg/dL Desirable 200-240 mg/dL Borderline >240 mg/dL High Risk Performed By: #### L 500.4050, L500.4100, L501.9520, L506.1000, L100.0500 #### [facility] [address] [place], [address] Cholesterol in HDL [Mass/Vol] 60 mg/dL Normal [facility] Comment on above: Result Comment: The drugs N-Acetylcysteine and Metamizole may falsely depress this assay. Reference Range HDL <40 mg/dL Low HDL Cholesterol HDL >or= 60 mg/dL High HDL Cholesterol Performed By: #### L 500.4050, L500.4100, L501.9520, L506.1000, L100.0500 #### [facility] [address] [place], [address] Cholesterol in LDL [Mass/Vol] 107 mg/dL Normal 0-130 [facility] Comment on above: Performed By: #### L 500.4050, L500.4100, L501.9520, L506.1000, L100.0500 #### [facility] [address] [place], [address] Cholesterol in VLDL [Mass/Vol] 16 mg/dL Normal 5-40 [facility] Comment on above: Performed By: #### L 500.4050, L500.4100, L501.9520, L506.1000, L100.0500 #### [facility] [address] [place], [address] Triglyceride [Mass/Vol] 79 mg/dL Normal [facility] Comment on above: Result Comment: The drugs N-Acetylcysteine and Metamizole may falsely depress this assay. Serum Triglycerides Reference Interval Normal <150 mg/dL Borderline high 150 - 199 mg/dL High 200 - 499 mg/dL Very High > or = 500 mg/dL Performed By: #### L 500.4050, L500.4100, L501.9520, L506.1000, L100.0500 #### [facility] [address] [place], [address] Thyroid Stim Hormone (TSH)on 09-09-2024 TSH 1.790 uIU/mL Normal 0.358-3.740 [facility] Comment on above: Performed By: #### L 500.4050, L500.4100, L501.9520, L506.1000, L100.0500 #### [facility] [address] [place], [address] Vitamin D,25 Hydroxyon 09-09 Vitamin D 25-OH 82.1 ng/mL Normal [facility] Comment on above: Result Comment: Kaleigh min D 25(OH) Status Range Deficiency <20 ng/mL (50nmol/L) Insufficiency 20 - 30 ng/mL (50 - 75 nmol/L) Sufficiency 30 - 100 ng/mL (75 - 250 nmol/L) Toxicity >100 ng/mL (>250 nmol/L) Performed By: #### L 500.4050, L500.4100, L501.9520, L506.1000, L100.0500 #### [facility] [address] [place], [address] CNOVon 03-02-2024 CNOV Office Visit (UCWSTR ) -------- MARY TOTH ([id number]) 1985 F Date Time Provider Department 03/02/24 8:15 AM VIJAY SMITH [facility] During your visit today, we recorded the following information about you: Temperature Pulse Respiration Blood pressure 97.8 degrees 98/minute 16/minute 122/80 Weight 185 kg Vijay Smith APRN.SUPERVISOR [employer] 03/02/2024 9:17 AM Signed Subjective HPI Nontoxic-appearing female presents urgent care chief complaint finger pain and back pain. Finger pain started this morning. Unable to fully extend DIP joint of right third digit. No known trauma. States area is sore if she pushes over it. Initially has had back pain for 3 to 4 weeks. History of back pain this is similar. No known injuries. No saddle anesthesia or incontinence. No traumatic injuries. No radiculopathy. Denies any fever body aches chills productive cough chest pain shortness of breath pleuritic pain hemoptysis nausea vomiting abdominal pain change in bowel or bladder habits. Past medical history prescription medication use and allergies reviewed. Denies chance of . .Patient presents with: Finger Pain: right middle finger unable to straighten x this am, lower back pain x few weeks History reviewed. No pertinent past medical history. PAST SURGICAL HISTORY Procedure Laterality Date ECISION OF LINGUAL TONSIL ~ age 8. MYRINGOTOMY ASPIRAND/EUSTACHIAN TUBE NFLTJ ANES Myringotomy/tubes ALLERGIES Latex MEDICATIONS buPROPion XL (WELLBUTRIN XL) 150 mg 24 hr tablet Take 1 tablet by mouth every afternoon. cholecalciferol, vitamin D3, 10 mcg (400 unit) cap Take by mouth as directed. Jkpqlhg-[place] f[place]ine (EXCEDRIN) 250-250-65 mg per tablet Take 1 tablet by mouth every 6 hours as needed. citalopram (CELEXA) 40 mg tablet Take 40 mg by mouth once daily. omeprazole (PRILOSEC) 40 mg capsule Take 40 mg by mouth once daily. FAMILY HISTORY Problem Relation Age of Onset Diabetes Unknown Heart Unknown Lipids Unknown Cancer Maternal Aunt Breast Cancer Maternal Aunt Cancer Maternal Aunt Social History Tobacco Use Smoking status: Every Day Packs/day: 1 Types: Cigarettes Smokeless tobacco: Never Substance Use Topics Alcohol use: Yes Comment: Infrequent. 5-10 per year. BP 122/80 Pulse 98 Temp 36.6 ?C (97.8 ?F) Resp 16 Wt (!) 185 kg (407 lb 13.6 oz) LMP 04/03/2015 (Approximate) SpO2 96% Review of Systems Constitutional: Negative for chills, fever and malaise/fatigue. HENT: Negative for congestion, ear discharge, ear pain, sinus pain and sore throat. Eyes: Negative for blurred vision, pain, discharge and redness. Respiratory: Negative for cough, hemoptysis, sputum production, shortness of breath, wheezing and stridor. Cardiovascular: Negative for chest pain. Gastrointestinal: Negative for abdominal pain, diarrhea, nausea and vomiting. Musculoskeletal: Positive for back pain and joint pain. Negative for falls, myalgias and neck pain. Skin: Negative for itching and rash. Neurological: Negative for dizziness and headaches. Objective Physical Exam Constitutional: General: She is not in acute distress. Appearance: She is not toxic-appearing. HENT: Head: Normocephalic. Nose: Nose normal. Eyes: Pupils: Pupils are equal, round, and reactive to light. Cardiovascular: Rate and Rhythm: Normal rate. Pulmonary: Effort: Pulmonary effort is normal. No respiratory distress. Musculoskeletal: Hands: Cervical back: Normal range of motion. Back: Comments: Unable to extend DIP joint highlighted area third digit. No erythema edema. Neurovascular intact. No pain with palpation to PIP or MCP joint. Hand unremarkable. Palpation highlighted area. No erythema edema. No spinal tenderness. Skin: General: Skin is warm and dry. Neurological: General: No focal deficit present. Mental Status: She is alert. ASSESSMENT/PLAN: 1. Pain of finger of right hand - ICD9: 729.5, ICD10: M79.644 (primary diagnosis) - XR DIGIT GENERAL 3V FRONTAL/LAT/OBL RIGHT 2. Acute right-sided low back pain without sciatica - ICD9: 724.2, ICD10: M54.50 FINDINGS: Tiny accessory bone versus age-indeterminate tiny avulsion fracture along the volar aspect of the DIP joint. There is a tiny accessory bone along the volar aspect of the PIP joint. The joint spaces are well preserved. The mineralization of the bones is normal. There is appears to be soft tissue swelling. Diagnosed with back pain. Treat with prednisone taper. No NSAIDs. Recommended physical therapy. Distantly diagnosed with finger pain. Possible avulsion fracture along the DIP joint. Patient was placed in a finger splint. Placed in hyperextension. Neurovascular check. No abnormal findings. Following up with Ortho on Friday. Patient was educated on supportive therapies. Patient will follow up with primary ca (more content not included)... Normal [facility] XR DIGIT 3V FRONTAL/LAT/OBL RTon 03-02-2024 XR DIGIT 3V FRONTAL/LAT/OBL RT * * *Final Report* * * DATE OF EXAM: Mar 02 2024 8:33AM WOX [id number] - XR DIGIT 3V FRONTAL/LAT/OBL RT / PROCEDURE REASON: Pain of finger of right hand * * * * Physician Interpretation * * * * EXAM TITLE: XR DIGIT 3V FRONTAL/LAT/OBL RT EXAM DATE/TIME: 03/02/2024 8:33 AM COMPARISON: None. CLINICAL INDICATION/HISTORY: Pain. TECHNIQUE: PA, lateral and oblique views of the third digit of the right hand. Are presented. FINDINGS: Tiny accessory bone versus age-indeterminate tiny avulsion fracture along the volar aspect of the DIP joint. There is a tiny accessory bone along the volar aspect of the PIP joint. The joint spaces are well preserved. The mineralization of the bones is normal. There is appears to be soft tissue swelling. IMPRESSION: Findings as described above. Campaign Director: LORIE Transcribe Date/Time: Mar 02 2024 8:35A Dictated by : MICHAEL SALAZAR MD This examination was interpreted and the report reviewed and electronically signed by: MICHAEL SALAZAR MD on Mar 02 2024 8:48AM EST [id number] Normal [facility] XR Finger - right AP and Lat eral and obliqueon 03-02-2024 IMPRESSION: Findings as described above. Campaign Director: LORIE Transcribe Date/Time: Mar 02 2024 8:35A Dictated by : MICHAEL SALAZAR MD This examination was interpreted and the report reviewed and electronically signed by: MICHAEL SALAZAR MD on Mar 02 2024 8:48AM EST DIVISION OF RADIOLOGY * * *Final Report* * * DATE OF EXAM: Mar 02 2024 8:33AM WOX [id number] - XR DIGIT 3V FRONTAL/LAT/OBL RT / PROCEDURE REASON: Pain of finger of right hand * * * * Physician Interpretation * * * * EXAM TITLE: XR DIGIT 3V FRONTAL/LAT/OBL RT EXAM DATE/TIME: 03/02/2024 8:33 AM COMPARISON: None. CLINICAL INDICATION/HISTORY: Pain. TECHNIQUE: PA, lateral and oblique views of the third digit of the right hand. Are presented. FINDINGS: Tiny accessory bone versus age-indeterminate tiny avulsion fracture along the volar aspect of the DIP joint. There is a tiny accessory bone along the volar aspect of the PIP joint. The joint spaces are well preserved. The mineralization of the bones is normal. There is appears to be soft tissue swelling. DIVISION OF RADIOLOGY Provider, Pradeep Singer [facility] - 03/02/2024 * * *Final Report* * * DATE OF EXAM: Mar 02 2024 8:33AM WOX [id number] - XR DIGIT 3V FRONTAL/LAT/OBL RT / PROCEDURE REASON: Pain of finger of right hand * * * * Physician Interpretation * * * * EXAM TITLE: XR DIGIT 3V FRONTAL/LAT/OBL RT EXAM DATE/TIME: 03/02/2024 8:33 AM COMPARISON: None. CLINICAL INDICATION/HISTORY: Pain. TECHNIQUE: PA, lateral and oblique views of the third digit of the right hand. Are presented. FINDINGS: Tiny accessory bone versus age-indeterminate tiny avulsion fracture along the volar aspect of the DIP joint. There is a tiny accessory bone along the volar aspect of the PIP joint. The joint spaces are well preserved. The mineralization of the bones is normal. There is appears to be soft tissue swelling. IMPRESSION IMPRESSION: Findings as described above. Campaign Director: PSCB Transcribe Date/Time: Mar 02 2024 8:35A Dictated by : MICHAEL SALAZAR MD This examination was interpreted and the report reviewed and electronically signed by: MICHAEL SALAZAR MD on Mar 02 2024 8:48AM EST [facility] Radiology Study observation (narrative) [facility] XR Finger - right AP and Lat eral and obliqueOrdered By: [facility] Provider on 03-02-2024 [facility] Basophil percentageOrdered B y: Abhinav Eliceo on 09-04-2023 Bilirubin [Mass/Vol] 0.40 mg/dL 0.20-1.00 [facility] Comment on above: For patients on eltr ombopag therapy, use of Dimension [place] TBIL is not recommended. Chloride [Moles/Vol] 107 mmol/L 98-107 [facility] Cholesterol [Mass/Vol] 176 mg/dL <200 [facility] Comment on above: <200 mg/dL Desirable 200-240 mg/dL Borderline >240 mg/dL High Risk Glucose [Mass/Vol] 77 mg/dL 74-106 [facility] Potassium [Moles/Vol] 3.7 mmol/L 3.5-5.1 [facility] Protein [Mass/Vol] 7.2 g/dL 6.4-8.2 [facility] Sodium [Moles/Vol] 139 mmol/L 136-145 [facility] Triglyceride [Mass/Vol] 92 mg/dL <199 [facility] Comment on above: The drugs N-Acetylcy steine and Metamizole may falsely depress this assay.Serum Triglycerides Reference Interval Normal <150 mg/dL Borderline high 150 - 199 mg/dL High 200 - 499 mg/dL Very High > or = 500 mg/dL WBC (Bld) [#/Vol] 9.7 10*3/uL 4.4-11.0 [facility] Blood erythrocytes count (nu mber/volume)Ordered By: Abhinav Murry on 09-04-2023 RBC (Bld) [#/Vol] 4.76 10*6/uL 4.2-5.4 [facility] Blood hemoglobin measurement (mass/volume)Ordered By: Abhinav Murry on 09-04-2023 Hemoglobin (Bld) [Mass/Vol] 13.7 g/dL 12.0-15.0 [facility] Blood platelet mean volumeOr dered By: Abhinav Murry on 09-04-2023 Platelet mean volume (Bld) [Entitic vol] 11.4 fL 6.2-12.0 [facility] Determination of erythrocyte mean corpuscular volume (MCV)Ordered By: Abhinav Murry on 09-04-2023 MCV (RBC) [Entitic vol] 93.3 fL 81-99 [facility] Hematocrit Auto (Bld) [Volum e fraction]Ordered By: Abhinav Murry on 09-04-2023 Hematocrit (Bld) [Volume fraction] 44.4 % 37-47 [facility] Laboratory - Chemistry and C hemistry - challengeOrdered By: Abhinav Murry on 09-04-2023 ALP [Catalytic activity/Vol] 82 U/L 45-117 [facility] ALT [Catalytic activity/Vol] 16 U/L 13-56 [facility] CO2 [Moles/Vol] 28.0 mmol/L 21.0-32.0 [facility] Globulin (S) [Mass/Vol] 3.9 g/dL 2.2-4.2 [facility] Urea nitrogen/Creatinine [Mass ratio] 15.5 mg/mg 10-20 [facility] Laboratory - Hematology and Cell countsOrdered By: Abhinav Murry on 09-04-2023 Erythrocyte distribution width (RBC) [Entitic vol] 49.3 fL 35.1-43.9 [facility] Erythrocyte distribution width (RBC) [Ratio] 14.2 % 11.6-14.6 [facility] MCH (RBC) [Entitic mass] 28.8 pg 27.0-32.0 [facility] MCHC Auto (RBC) [Mass/Vol]Or dered By: Abihnav Murry on 09-04-2023 MCHC (RBC) [Mass/Vol] 30.9 g/dL 32-36 [facility] No Panel InformationOrdered By: Abhinav Murry on 09-04-2023 Estimated GFR (MDRD) Amer 97 mL/min >60 [facility] Comment on above: GFR Calc Estimated GFR (MDRD) Non-Af Amer 80 mL/min >60 [facility] Comment on above: Non- GFR Calc Thyroid Stimulating Hormone (TSH) 1.30 uIU/mL 0.358-3.74 [facility] Vitamin D 25-Hydroxy 92.5 ng/mL [facility] Comment on above: Vitamin D 25(OH) Sta tus Range Deficiency <20 ng/mL (50nmol/L) Insufficiency 20 - 30 ng/mL (50 - 75 nmol/L) Sufficiency 30 - 100 ng/mL (75 - 250 nmol/L) Toxicity >100 ng/mL (>250 nmol/L) Platelets bldOrdered By: Meghna Murry on 09-04-2023 Platelets (Bld) [#/Vol] 295 10*3/uL 150-450 [facility] Serum or plasma albumin juan f urement (mass/volume)Ordered By: Abhinav Murry on 09-04-2023 Albumin [Mass/Vol] 3.3 g/dL 3.2-5.0 [facility] Serum or plasma albumin/glob ulin mass ratioOrdered By: Abhinav Murry on 09-04-2023 Albumin/Globulin [Mass ratio] 0.8 {ratio} 0.9-2.4 [facility] Serum or plasma calcium juan f urement (mass/volume)Ordered By: Abhinav Murry on 09-04-2023 Calcium [Mass/Vol] 9.2 mg/dL 8.5-10.1 [facility] Serum or plasma cholesterol in HDL measurement (mass/volume)Ordered By: Abhinav Murry on 09-04-2023 Cholesterol in HDL [Mass/Vol] 55 mg/dL >40 [facility] Comment on above: The drugs N-Acetylcy steine and Metamizole may falsely depress this assay. Reference Range HDL <40 mg/dL Low HDL Cholesterol HDL >or= 60 mg/dL High HDL Cholesterol Serum or plasma cholesterol in VLDL measurement (mass/volume)Ordered By: Abhinav Murry on 09-04-2023 Cholesterol in VLDL [Mass/Vol] 18 mg/dL 5-40 [facility] Serum or plasma creatinine m easurement (mass/volume)Ordered By: Abhinav Murry on 09-04-2023 Creatinine [Mass/Vol] 0.84 mg/dL 0.55-1.02 [facility] Comment on above: The validity of the calculated GFR & GFRAA in patients over 70 years has not been determined. Clinical correlation is essential. Serum or plasma low density lipoprotein (LDL) cholesterol measurement (mass/volume)Ordered By: Abhinav Murry on 09-04-2023 Cholesterol in LDL [Mass/Vol] 103 mg/dL 0-130 [facility] Serum or plasma urea nitroge n measurement (mass/volume)Ordered By: Abhinav Murry on 09-04-2023 Urea nitrogen [Mass/Vol] 13 mg/dL 7-18 [facility] Thin prep Papanicolaou smear with manual screeningOrdered By: Abhinav Murry on 09-04-2023 Thin prep Papanicolaou smear with manual screening 8 U/L 15-37 [facility] Thin prep Papanicolaou smear with manual screening 4 5-15 [facility] Absolute lymphocyte countOrd ered By: Farida Mayfield on 02-06-2023 Lymphocytes Auto (Unsp spec) [#/Vol] 2.99 10*3/uL 0.83-4.51 [facility] Basophil percentageOrdered B y: Farida Mayfield on 02-06-2023 Basophils/100 WBC (Bld) 0.4 % 0-1 [facility] Chloride [Moles/Vol] 109 mmol/L 98-107 [facility] Eosinophils/100 WBC (Bld) 3.8 % 0-5 [facility] Glucose [Mass/Vol] 92 mg/dL 74-106 [facility] Neutrophils (Bld) [#/Vol] 5.2 10*3/uL 2.0-7.7 [facility] Neutrophils/100 WBC (Bld) 55.7 % 47-70 [facility] Potassium [Moles/Vol] 3.7 mmol/L 3.5-5.1 [facility] Sodium [Moles/Vol] 142 mmol/L 136-145 [facility] WBC (Bld) [#/Vol] 9.3 10*3/uL 4.4-11.0 [facility] Beta hCG serum qualOrdered B y: Farida Mayfield on 02-06-2023 Beta HCG ( test) Ql Negative [facility] Blood erythrocytes count (nu mber/volume)Ordered By: Farida Mayfield on 02-06-2023 RBC (Bld) [#/Vol] 4.80 10*6/uL 4.2-5.4 [facility] Blood hemoglobin measurement (mass/volume)Ordered By: Farida Mayfield on 02-06-2023 Hemoglobin (Bld) [Mass/Vol] 14.6 g/dL 12.0-15.0 [facility] Blood lymphocytes/100 leukoc ytesOrdered By: Farida Mayfield on 02-06-2023 Lymphocytes/100 WBC (Bld) 32.2 % 19-41 [facility] Blood monocytes/100 leukocyt esOrdered By: Farida Mayfield on 02-06-2023 Monocytes/100 WBC (Bld) 7.5 % 0-10 [facility] Blood platelet mean volumeOr dered By: Farida Mayfield on 02-06-2023 Platelet mean volume (Bld) [Entitic vol] 10.7 fL 6.2-12.0 [facility] Determination of erythrocyte mean corpuscular volume (MCV)Ordered By: Farida Mayfield on 02-06-2023 MCV (RBC) [Entitic vol] 92.3 fL 81-99 [facility] Hematocrit Auto (Bld) [Volum e fraction]Ordered By: Farida Mayfield on 02-06-2023 Hematocrit (Bld) [Volume fraction] 44.3 % 37-47 [facility] Laboratory - Chemistry and C hemistry - challengeOrdered By: Farida Mayfield on 02-06-2023 CO2 [Moles/Vol] 25.0 mmol/L 21.0-32.0 [facility] Urea nitrogen/Creatinine [Mass ratio] 11.4 mg/mg 10-20 [facility] Laboratory - Drug toxicology Ordered By: Farida Mayfield on 02-06-2023 Amphetamines Ql (U) Negative <1000 ng/mL [facility] Benzodiazepines Ql (U) Negative < 200 ng/mL [facility] Cannabinoids Screen Ql (U) Negative < 50 ng/mL [facility] Cocaine Ql (U) Negative < 300 ng/mL [facility] Opiates Ql (U) Negative < 300 ng/mL [facility] Laboratory - Hematology and Cell countsOrdered By: Farida Mayfield on 02-06-2023 Erythrocyte distribution width (RBC) [Entitic vol] 50.4 fL 35.1-43.9 [facility] Erythrocyte distribution width (RBC) [Ratio] 14.6 % 11.6-14.6 [facility] Immature granulocytes/100 WBC (Bld) 0.400 % 0.0-0.9 [facility] Comment on above: IG% - Immature Granu locytes (promyelocytes, myelocytes and metamyelocytes) > 1% indicates that a LEFT SHIFT is Present. MCH (RBC) [Entitic mass] 30.4 pg 27.0-32.0 [facility] Nucleated RBC/100 WBC (Bld) [Ratio] 0 % 0-5 [facility] MCHC Auto (RBC) [Mass/Vol]Or dered By: Farida Mayfield on 02-06-2023 MCHC (RBC) [Mass/Vol] 33.0 g/dL 32-36 [facility] No Panel InformationOrdered By: Farida aMyfield on 02-06-2023 Estimated Creatinine Clearance Calc 99.92 ml/min [facility] Estimated GFR (MDRD) Amer 104 mL/min >60 [facility] Comment on above: GFR Calc Estimated GFR (MDRD) Non-Af Amer 86 mL/min >60 [facility] Comment on above: Non- GFR Calc Ethyl Alcohol Level < 3.0 mg/dL [facility] Comment on above: The serum:whole bloo d ethanol ratio is approximately 1.14and varies slightly with hematocrit. Medical Alcohol reference interval and critical value innon-tolerant individuals; 50 - 100 Impairment 100 Intoxication 100 - 250 Severe Poisoning 250 - 400 Deep/possible fatal coma MDMA (Ecstasy) Screen Negative < 500 ng/mL [facility] Urine Barbiturates Screen Negative < 200 ng/mL [facility] Urine Drug Screen Comment [facility] Comment on above: CONFIRMATORY TESTING FOR ALL POSITIVE URINE DRUG SCREENRESULTS WILL ONLY BE SENT OUT UPON PHYSICIAN ORDER. VISTA Urine Drug Screen methods provide only preliminaryanalytical test results. A more specific alternate chemicalmethod must be used in order to obtain a confirmedanalytical result. Gas chromatography/mass spectrometery(GC/MS) is the preferred confirmatory method. Clinicalconsideration and professional judgement should be appliedto any drug of abuse test result, particularly whenpreliminary positive results are used. URINE TCA TESTING MUST BE ORDERED SEPARATELY. USE TESTMNEMONIC: [facility] Urine Methadone Screen Negative < 300 ng/mL [facility] Platelets bldOrdered By: Mercy Mayfield on 02-06-2023 Platelets (Bld) [#/Vol] 294 10*3/uL 150-450 [facility] Serum or plasma calcium juan f urement (mass/volume)Ordered By: Farida Mayfield on 02-06-2023 Calcium [Mass/Vol] 9.6 mg/dL 8.5-10.1 [facility] Serum or plasma creatinine m easurement (mass/volume)Ordered By: Farida Mayfield on 02-06-2023 Creatinine [Mass/Vol] 0.79 mg/dL 0.55-1.02 [facility] Comment on above: The validity of the calculated GFR & GFRAA in patients over 70 years has not been determined. Clinical correlation is essential. Serum or plasma urea nitroge n measurement (mass/volume)Ordered By: Farida Mayfield on 02-06-2023 Urea nitrogen [Mass/Vol] 9 mg/dL -18 [facility] Thin prep Papanicolaou smear with manual screeningOrdered By: Farida Mayfield on 02-06-2023 Thin prep Papanicolaou smear with manual screening 8 5-15 [facility] Urine phencyclidine (PCP) de tectionOrdered By: Farida Mayfield on 02-06-2023 Phencyclidine Ql (U) Negative < 25 ng/mL [facility] .Auto Diffon 08-02-2022 Basophil, Absolute 0.1 10 3/mcL Normal 0.0-0.2 [facility] ([place]) Comment on above: Performed By: #### T SH, LIPID, VIDH, CMP, GFR #### [address] [address] Basophils/100 WBC (Bld) 0.9 % Normal 0.0-2.5 [facility] ([place]) Comment on above: Performed By: #### T SH, LIPID, VIDH, CMP, GFR #### [address] [address] Eosinophil, Absolute 0.3 10 3/mcL Normal 0.0-0.4 [facility] ([place]) Comment on above: Performed By: #### T SH, LIPID, VIDH, CMP, GFR #### [address] [address] Eosinophils/100 WBC (Bld) 2.9 % Normal 0.0-7.0 [facility] ([place]) Comment on above: Performed By: #### T SH, LIPID, VIDH, CMP, GFR #### [address] [address] Lymphocyte, Absolute 2.4 10 3/mcL Normal 0.8-3.9 [facility] ([place]) Comment on above: Performed By: #### T SH, LIPID, VIDH, CMP, GFR #### [address] [address] Lymphocytes/100 WBC (Bld) 24.3 % Normal 10.0-50.0 [facility] ([place]) Comment on above: Performed By: #### T SH, LIPID, VIDH, CMP, GFR #### [address] [address] Monocyte, Absolute 0.7 10 3/mcL Normal 0.2-1.0 [facility] ([place]) Comment on above: Performed By: #### T SH, LIPID, VIDH, CMP, GFR #### [address] [address] Monocytes/100 WBC (Bld) 7.1 % Normal 1.7-13.0 [facility] ([place]) Comment on above: Performed By: #### T SH, LIPID, VIDH, CMP, GFR #### [address] [address] Neutrophils/100 WBC (Bld) 64.8 % Normal 37.0-80.0 [facility] ([place]) Comment on above: Performed By: #### T SH, LIPID, VIDH, CMP, GFR #### [address] [address] .GFRon 08-02-2022 GFR 95 ml/min/1.73sqm Normal [facility] ([place]) Comment on above: Result Comment: GFR Population mean for , Non- Americans Ages 20-29 = 116 mL/min/1.73 sq.m. Ages 30-39 = 107 mL/min/1.73 sq.m. Ages 40-49 = 99 mL/min/1.73 sq.m. Ages 50-59 = 93 mL/min/1.73 sq.m. Ages 60-69 = 85 mL/min/1.73 sq.m. Ages 70+ = 75 mL/min/1.73 sq.m. Chronic Kidney Disease: Less than 60 mL/min/1.73 square meters End Stage Renal Disease: Less than 15 mL/min/1.73 square meters Performed By: #### T SH, LIPID, VIDH, CMP, GFR #### [address] [address] GFR Non- 79 ml/min/1.73sqm Normal [facility] ([place]) Comment on above: Result Comment: GFR Population mean for , Non- Americans Ages 20-29 = 116 mL/min/1.73 sq.m. Ages 30-39 = 107 mL/min/1.73 sq.m. Ages 40-49 = 99 mL/min/1.73 sq.m. Ages 50-59 = 93 mL/min/1.73 sq.m. Ages 60-69 = 85 mL/min/1.73 sq.m. Ages 70+ = 75 mL/min/1.73 sq.m. Chronic Kidney Disease: Less than 60 mL/min/1.73 square meters End Stage Renal Disease: Less than 15 mL/min/1.73 square meters Performed By: #### T SH, LIPID, VIDH, CMP, GFR #### [address] [address] .NEUABSon 08-02-2022 Neutrophil, Absolute 6.4 10 3/mcL High 2.9-6.2 [facility] ([place]) Comment on above: Performed By: #### T SH, LIPID, VIDH, CMP, GFR #### [address] [address] CBCon 08-02-2022 Erythrocyte distribution width (RBC) [Ratio] 14.8 % High 11.5-14.5 [facility] ([place]) Comment on above: Performed By: #### T SH, LIPID, VIDH, CMP, GFR #### [address] [address] Hematocrit (Bld) [Volume fraction] 41.7 % Normal 37.0-47.0 [facility] ([place]) Comment on above: Performed By: #### T SH, LIPID, VIDH, CMP, GFR #### [address] [address] Hgb 13.7 G/dL Normal 12.0-16.0 [facility] ([place]) Comment on above: Performed By: #### T SH, LIPID, VIDH, CMP, GFR #### [address] [address] MCH (RBC) [Entitic mass] 29.7 pg Normal 27.0-31.2 [facility] ([place]) Comment on above: Performed By: #### T SH, LIPID, VIDH, CMP, GFR #### [address] [address] MCHC 32.8 G/dL Low 33.0-37.0 [facility] ([place]) Comment on above: Performed By: #### T SH, LIPID, VIDH, CMP, GFR #### [address] [address] MCV (RBC) [Entitic vol] 90.6 fL Normal 80.0-94.0 [facility] ([place]) Comment on above: Performed By: #### T SH, LIPID, VIDH, CMP, GFR #### [address] [address] Platelet 244 10 3/mcL Normal 130-400 [facility] ([place]) Comment on above: Performed By: #### T SH, LIPID, VIDH, CMP, GFR #### [address] [address] Platelet mean volume (Bld) [Entitic vol] 9.5 fL Normal 7.4-10.4 [facility] ([place]) Comment on above: Performed By: #### T SH, LIPID, VIDH, CMP, GFR #### [address] [address] RBC 4.60 10 6/mcL Normal 4.20-5.40 [facility] ([place]) Comment on above: Performed By: #### T SH, LIPID, VIDH, CMP, GFR #### [address] [address] WBC 9.9 10 3/mcL Normal 4.6-10.8 [facility] ([place]) Comment on above: Performed By: #### T SH, LIPID, VIDH, CMP, GFR #### [address] [address] CMPon 08-02-2022 Albumin Level 3.2 G/dL Low 3.5-5.0 [facility] ([place]) Comment on above: Performed By: #### T SH, LIPID, VIDH, CMP, GFR #### [address] [address] Albumin/Globulin [Mass ratio] 1.1 {ratio} Normal 1.1-2.5 [facility] ([place]) Comment on above: Performed By: #### T SH, LIPID, VIDH, CMP, GFR #### [address] [address] ALP [Catalytic activity/Vol] 69 U/L Normal 40-135 [facility] ([place]) Comment on above: Performed By: #### T SH, LIPID, VIDH, CMP, GFR #### [address] [address] ALT [Catalytic activity/Vol] 13 U/L Low 14-59 [facility] ([place]) Comment on above: Performed By: #### T SH, LIPID, VIDH, CMP, GFR #### [address] [address] AST [Catalytic activity/Vol] 11 U/L Normal 10-40 [facility] ([place]) Comment on above: Performed By: #### T SH, LIPID, VIDH, CMP, GFR #### [address] [address] Bili Total 0.4 mg/dL Normal 0.2-1.0 [facility] ([place]) Comment on above: Result Comment: Use of this assay is not recommended for patients undergoing treatment with eltrombopag due to the potential for falsely elevated results. Performed By: #### T SH, LIPID, VIDH, CMP, GFR #### [address] [address] BUN/Creatinine Ratio 14 ratio Normal 7-27 [facility] ([place]) Comment on above: Performed By: #### T SH, LIPID, VIDH, CMP, GFR #### [address] [address] Calcium [Mass/Vol] 9.0 mg/dL Normal 8.4-10.2 [facility] ([place]) Comment on above: Performed By: #### T SH, LIPID, VIDH, CMP, GFR #### [address] [address] Chloride [Moles/Vol] 105 mmol/L Normal 98-107 [facility] ([place]) Comment on above: Performed By: #### T SH, LIPID, VIDH, CMP, GFR #### [address] [address] CO2 [Moles/Vol] 29 mmol/L Normal 22-29 [facility] ([place]) Comment on above: Performed By: #### T SH, LIPID, VIDH, CMP, GFR #### [address] [address] Creatinine [Mass/Vol] 0.81 mg/dL Normal 0.55-1.02 [facility] ([place]) Comment on above: Performed By: #### T SH, LIPID, VIDH, CMP, GFR #### [address] [address] Electrolyte Balance 6.0 mEq/L Normal 4.0-15.0 [facility] ([place]) Comment on above: Performed By: #### T SH, LIPID, VIDH, CMP, GFR #### [place] [id number] Globulin 2.8 G/dL Normal [facility] ([place]) Comment on above: Performed By: #### T SH, LIPID, VIDH, CMP, GFR #### [address] [address] Glucose [Mass/Vol] 108 mg/dL High 70-105 [facility] ([place]) Comment on above: Performed By: #### T SH, LIPID, VIDH, CMP, GFR #### [address] [address] Potassium [Moles/Vol] 4.6 mmol/L Normal 3.5-5.1 [facility] ([place]) Comment on above: Performed By: #### T SH, LIPID, VIDH, CMP, GFR #### [place] [id number] Sodium [Moles/Vol] 140 mmol/L Normal 136-145 [facility] ([place]) Comment on above: Performed By: #### T SH, LIPID, VIDH, CMP, GFR #### [address] [address] Total Protein 6.0 G/dL Low 6.4-8.2 [facility] ([place]) Comment on above: Performed By: #### T SH, LIPID, VIDH, CMP, GFR #### [address] [address] Urea nitrogen [Mass/Vol] 11 mg/dL Normal 7-18 [facility] ([place] Comment on above: Performed By: #### T SH, LIPID, VIDH, CMP, GFR #### [address] [address] LIPIDon 08-02-2022 Cholesterol [Mass/Vol] 185 mg/dL Normal 0-200 [facility] ([place]) Comment on above: Result Comment: Chol esterol Reference Interval: Less than 200 Desirable 200-239 Borderline high risk 240 and above High risk Performed By: #### T SH, LIPID, VIDH, CMP, GFR #### [address] [address] Cholesterol in HDL [Mass/Vol] 56 mg/dL Normal 40-60 [facility] ([place]) Comment on above: Performed By: #### T SH, LIPID, VIDH, CMP, GFR #### [address] [address] Cholesterol in LDL [Mass/Vol] 115 mg/dL Normal 0-130 [facility] ([place]) Comment on above: Performed By: #### T SH, LIPID, VIDH, CMP, GFR #### [address] [address] Triglyceride [Mass/Vol] 68 mg/dL Normal 0-150 [facility] [facility] ([place]) Comment on above: Result Comment: Trig lyceride Reference Interval: Less than 150 Normal 150-199 Borderline high risk 200-499 High risk 500 or higher Very high risk Performed By: #### T SH, LIPID, VIDH, CMP, GFR #### [address] [address] TSHon 08-02-2022 TSH Qn 0.99 m[IU]/L Normal 0.36-3.74 [facility] ([place]) Comment on above: Performed By: #### T SH, LIPID, VIDH, CMP, GFR #### [facility] [address] [place], [place] [address] VIDHon 08-02-2022 Vit. D 25-Hydroxy 26.2 ng/mL Normal [facility] ([place]) Comment on above: Result Comment: Inte rpretive Values Based on Total 25(OH) Vitamin D: Deficient <20 ng/mL Insufficient 20 - <30 ng/mL Sufficient 30-100 ng/mL Performed By: #### T SH, LIPID, VIDH, CMP, GFR #### [facility] [address] [place], [place] [address] CT ABDOMEN PELVIS WITH IV CO NTRAST ONLYon 07-18-2022 CT ABDOMEN PELVIS WITH IV CONTRAST ONLY EXAMINATION: CT ABDOMEN PELVIS WITH IV CONTRAST ONLY HISTORY: ORDERING SYSTEM PROVIDED HISTORY: Lower abdominal pain, TECHNOLOGIST PROVIDED HISTORY: Illness/Other Reason for exam: lower abdominal cramping pain, started yesterday morning, denies n/v Encounter Type: Initial Additional signs and symptoms: per Dr. ibarra did not want a preg test ORDERING SYSTEM PROVIDED DIAGNOSIS CODES: COMPARISON: None. TECHNIQUE: CT examination of the abdomen and pelvis following the administration of intravenous contrast. Coronal and sagittal reformations were performed. Dose reduction techniques were achieved by using automated exposure control and/or adjustment of mA and/or kV according to patient size and/or use of iterative reconstruction technique. CONTRAST: IOPAMIDOL 370 MG IODINE/ML (76 %) INTRAVENOUS SOLUTION - 75 mL, FINDINGS: CT abdomen: The lung bases are clear of consolidations, and no effusions are identified. The heart size is within normal limits. The liver is of diffuse decreased attenuation, measuring 20.7 cm in length. Dependent density within the gallbladder, consistent with multiple layering subcentimeter gallstones. The spleen, pancreas, adrenal glands, and right kidney are normal. A 6 mm hypodensity located posteromedially within the mid left kidney is too small to further characterize due to volume averaging. No retroperitoneal adenopathy. CT pelvis: The bladder is moderately distended, without an intrinsic abnormality. The uterus and adnexal regions are unremarkable. No bowel wall thickening or dilated loops of bowel, with the appendix visualized and normal. Multilevel moderate degenerative changes of the spine, with straightening of the normal lumbar lordosis. IMPRESSION: 1. No acute intraabdominal or pelvic finding. 2. Cholelithiasis. 3. Hepatomegaly with suspected fatty infiltration of the liver. DPR/ads Workstation ID: [id number] Dictated by: EARLENE FLANNERY on FriJul 18, 2022 5:39:02 PM EDT Transcribed by: FELIPE MEYER on FriJul 18, 2022 6:03:51 PM EDT Finalized by: EARLENE FLANNERY on FriJul 18, 2022 6:03:51 PM EDT Normal [facility] Comment on above: Order Comment: Injur y/Trauma or Illness?:Illness/Other How long have you had these symptoms (acute/chronic)?:Acute Reason for exam?:lower abdominal cramping pain, started yesterday morning, denies n/v Type of Exam?:Initial Additional signs and symptoms?:per Dr. ibarra did not want a preg test Absolute lymphocyte counton 07-03-2022 Lymphocytes Auto (Unsp spec) [#/Vol] 2.06 10*3/uL 0.83-4.51 [facility] Work Phone: Basophil percentageon 2021 Basophils/100 WBC (Bld) 0.7 % 0-1 [facility] Work Phone: Chloride [Moles/Vol] 111 mmol/L 98-107 [facility] Work Phone: Eosinophils/100 WBC (Bld) 3.4 % 0-5 [facility] Work Phone: Glucose [Mass/Vol] 99 mg/dL 74-106 [facility] Work Phone: Neutrophils (Bld) [#/Vol] 4.7 10*3/uL 2.0-7.7 [facility] Work Phone: Neutrophils/100 WBC (Bld) 60.8 % 47-70 [facility] Work Phone: Potassium [Moles/Vol] 4.1 mmol/L 3.5-5.1 [facility] Work Phone: Sodium [Moles/Vol] 141 mmol/L 136-145 [facility] Work Phone: WBC (Bld) [#/Vol] 7.7 10*3/uL 4.4-11.0 [facility] Work Phone: Blood erythrocytes count (nu mber/volume)on 07-03-2022 RBC (Bld) [#/Vol] 4.40 10*6/uL 4.2-5.4 [facility] Work Phone: Blood hemoglobin measurement (mass/volume)on 07-03-2022 Hemoglobin (Bld) [Mass/Vol] 13.2 g/dL 12.0-15.0 [facility] Work Phone: Blood lymphocytes/100 leukoc yteson 07-03-2022 Lymphocytes/100 WBC (Bld) 26.9 % 19-41 [facility] Work Phone: Blood monocytes/100 leukocyt eson 07-03-2022 Monocytes/100 WBC (Bld) 7.8 % 0-10 [facility] Work Phone: Blood platelet mean volumeon 07-03-2022 Platelet mean volume (Bld) [Entitic vol] 10.9 fL 6.2-12.0 [facility] Work Phone: Determination of erythrocyte mean corpuscular volume (MCV)on 07-03-2022 MCV (RBC) [Entitic vol] 93.0 fL 81-99 [facility] Work Phone: Hematocrit Auto (Bld) [Volum e fraction]on 07-03-2022 Hematocrit (Bld) [Volume fraction] 40.9 % 37-47 [facility] Work Phone: Laboratory - Chemistry and C hemistry - challengeon 07-03-2022 CO2 [Moles/Vol] 25.0 mmol/L 21.0-32.0 [facility] Work Phone: Urea nitrogen/Creatinine [Mass ratio] 16.2 mg/mg 10-20 [facility] Work Phone: Laboratory - Hematology and Cell countson 07-03-2022 Erythrocyte distribution width (RBC) [Entitic vol] 48.3 fL 35.1-43.9 [facility] Work Phone: [phone] Erythrocyte distribution width (RBC) [Ratio] 14.1 % 11.6-14.6 [facility] Work Phone: [phone] Immature granulocytes/100 WBC (Bld) 0.400 % 0.0-0.9 [facility] Work Phone: [phone] Comment on above: IG% - Immature Granu locytes (promyelocytes, myelocytes and metamyelocytes) > 1% indicates that a LEFT SHIFT is Present. MCH (RBC) [Entitic mass] 30.0 pg 27.0-32.0 [facility] Work Phone: [phone] Nucleated RBC/100 WBC (Bld) [Ratio] 0 % 0-5 [facility] Work Phone: [phone] MCHC Auto (RBC) [Mass/Vol]on 07-03-2022 MCHC (RBC) [Mass/Vol] 32.3 g/dL 32-36 [facility] Work Phone: No Panel Informationon 07-03 Estimated Creatinine Clearance Calc 117.23 ml/min [facility] Work Phone: [phone] Estimated GFR (MDRD) Amer 124 mL/min >60 [facility] Work Phone: [phone] Comment on above: GFR Calc Estimated GFR (MDRD) Non-Af Amer 103 mL/min >60 [facility] Work Phone: [phone] Comment on above: Non- GFR Calc Troponin I High Sensitivity 4 pg/mL 3.0-54.0 [facility] Work Phone: [phone] Comment on above: Please Note: New Yuli t Units and Gender Specific Reference Ranges. For more information see Policy Stat Procedure [place] High Sensitivity Troponin (TNIH) and attachments. Platelets bldon 07-03-2022 Platelets (Bld) [#/Vol] 233 10*3/uL 150-450 [facility] Work Phone: [phone] Serum or plasma calcium juan f urement (mass/volume)on 07-03-2022 Calcium [Mass/Vol] 8.8 mg/dL 8.5-10.1 [facility] Work Phone: Serum or plasma creatinine m easurement (mass/volume)on 07-03-2022 Creatinine [Mass/Vol] 0.68 mg/dL 0.55-1.02 [facility] Work Phone: Comment on above: The validity of the calculated GFR & GFRAA in patients over 70 years has not been determined. Clinical correlation is essential. Serum or plasma urea nitroge n measurement (mass/volume)on 07-03-2022 Urea nitrogen [Mass/Vol] 11 mg/dL 7-18 [facility] Work Phone: Thin prep Papanicolaou smear with manual screeningon 07-03-2022 Thin prep Papanicolaou smear with manual screening 5 5-15 [facility] Work Phone: [id number] 09-09-2021 Date of Onset [id number] Invalid Interpretation Code [facility] ([place]) Comment on above: Performed By: #### C OVD19 #### [place] [address] Employed in Healthcare [facility] ([place] Comment on above: Performed By: #### C OVD19 #### Angelina [place] [address] [place], [place] [address] First Test No [facility] ([place] Comment on above: Performed By: #### C OVD19 #### Angelina Collins [address] [place], [place] [address] Hospitalized No [facility] ([place] Comment on above: Performed By: #### C OVD19 #### [facility] [place] [address] [place], [place] [address] ICU No [facility] [place] Comment on above: Performed By: #### C OVD19 #### Angelina Collins [address] [place], [place] [address] Not [facility] [place] Comment on above: Performed By: #### C OVD19 #### Angelina [place] [address] [place], [place] [address] Resides in Congregate Care Setting No Normal [facility] ([place] Comment on above: Performed By: #### C OVD19 #### [place] [address] [place], [place] [address] SARS-CoV-2 (COVID-19) RNA YENY+probe Ql (Unsp spec) Positive Abnormal Negative [facility] ([place]) Comment on above: Performed By: #### C OVD19 #### [address] [address] SARS-CoV-2 (COVID-19) RNA YENY+probe Ql (Unsp spec) Normal [facility] ([place] Comment on above: Result Comment: Posi tive results are indicative of the presence of SARS-CoV-2 RNA; clinical correlation with patient history and other diagnostic information is necessary to determine patient infection status. Positive results do not rule out bacterial infection or co-infection with other viruses. The agent detected may not be the definite cause of disease. Laboratories within the [facility] and its territories are required to report all positive results to the appropriate public health authorities. Detection of analyte target(s) does not imply that the corresponding virus(es) are infectious or are the causative agents for clinical symptoms. There is a risk of false positive values resulting from cross-contamination by target organisms, their nucleic acids or amplified product, or from non-specific signals in the assay. SUMA SARS-CoV-2 Assay is a Real-Time reverse-transcriptase polymerase chain reaction (RT-PCR) based qualitative in vitro diagnostic test intended for the qualitative detection of nucleic acid from the SARS-CoV-2 in nasopharyngeal swab specimens collected from individuals suspected of COVID-19 by their healthcare provider. Testing is limited to laboratories certified under the Clinical Laboratory Improvement Amendments of 1988 (CLIA), 42 U.S.C. ?263a, to perform moderate and high complexity tests. COVID-19 Int Performed By: #### C OVD19 #### Angelina [address] [address] Symptomatic as Defined by CDC Yes Normal [facility] ([place]) Comment on above: Performed By: #### C OVD19 #### Angelina [place] [address] [place], [place] [address] LABORATORYOrdered By: Carlee Busch on 09-09-2021 ADMITTED TO INTENSIVE CARE UNIT FOR CONDITION OF INTEREST:FIND:PT:^PAT IENT:ORD: No (09/09/21 1:38 PM) Invalid Interpretation Code AO Auto Urine SS EMPLOYED IN A HEALTHCARE SETTING:FIND:PT:^HANNAH ENT:ORD: No (09/09/21 1:38 PM) Invalid Interpretation Code AO Auto Urine SS FIRST TEST FOR CONDITION OF INTEREST:FIND:PT:^PAT IENT:ORD: No (09/09/21 1:38 PM) Invalid Interpretation Code AO Auto Urine SS HAS SYMPTOMS RELATED TO CONDITION OF INTEREST:FIND:PT:^PAT IENT:ORD: Yes (09/09/21 1:38 PM) Invalid Interpretation Code AO Auto Urine SS Illness or injury onset date and time [id number] Invalid Interpretation Code AO Auto Urine SS Patient was hospitalized because of this condition No (09/09/21 1:38 PM) Invalid Interpretation Code AO Auto Urine SS status Not (09/09/21 1:38 PM) Invalid Interpretation Code AO Auto Urine SS RESIDES IN A CONGREGATE CARE SETTING:FIND:PT:^HANNAH ENT:ORD: No (09/09/21 1:38 PM) Invalid Interpretation Code AO Auto Urine SS SARS-CoV-2 (COVID-19) RNA YENY+probe Ql (Resp) Positive *ABN* (09/09/21 1:38 PM) Invalid Interpretation Code Negative AO Auto Urine SS SARS-CoV-2 (COVID-19) RNA YENY+probe Ql (Unsp spec) Positive results are indicative of the presence of SARS-CoV-2 RNA; clinical correlation with patient history and other diagnostic information is necessary to determine patient infection status. Positive results do not rule out bacterial infection or co-infection with other viruses. The agent detected may not be the definite cause of disease. Laboratories within the [place] and its territories are required to report all positive results to the appropriate public health authorities.Detection of analyte target(s) does not imply that the corresponding virus(es) are infectious or are the causative agents for clinical symptoms.There is a risk of false positive values resulting from cross-contamination by target organisms, their nucleic acids or amplified product, or from non-specific signals in the assay.SUMA SARS-CoV-2 Assay is a Real-Time reverse-transcriptase polymerase chain reaction (RT-PCR) based qualitative in vitro diagnostic test intended for the qualitative detection of nucleic acid from the SARS-CoV-2 in nasopharyngeal swab specimens collected from individuals suspected of COVID-19 by their healthcare provider. Testing is limited to laboratories certified under the Clinical Laboratory Improvement Amendments of 1988 (CLIA), 42 U.S.C. 263a, to perform moderate and high complexity tests. Invalid Interpretation Code AO Auto Urine SS XR CHEST 1 VIEWon 09-09-2021 XR CHEST 1 VIEW ORIGINAL EXAMINATION: ONE XRAY VIEW OF THE CHEST 09/09/2021 1:57 pm COMPARISON: None. HISTORY: ORDERING SYSTEM PROVIDED HISTORY: Reason for Exam: SOB/cough/fever FINDINGS: Cardiomediastinal silhouette is within normal limits. Low lung volumes, which accentuate interstitial lung markings. No focal consolidation, pleural effusion, pneumothorax, or vascular congestion. No acute osseous abnormality. IMPRESSION: Hypoventilatory changes with no other acute radiographic findings. I have personally reviewed the images of this examination and agree with the resident's findings and interpretation. Interpreted by: Job Monae MD Preliminary Report By: Mikki Montenegro Electronically signed By Job Monae MD Dictated Date: 09/09/2021 2:02:55 PM Prelim Date: 09/09/2021 2:04:14 PM Sign Date: 09/09/2021 2:05:09 PM Ordering Provider: GABY MCCARTHY [facility] ([place]) LABORATORYOrdered By: Yun Matt on 07-31-2021 Albumin BCP dye [Mass/Vol] 3.4 G/dL Invalid Interpretation Code 3.5 - 5.0 G/dL AO ADM SS Albumin/Globulin [Mass ratio] 1.2 {ratio} Invalid Interpretation Code 1.1 - 2.5 ratio AO ADM SS ALP [Catalytic activity/Vol] 72 U/L Invalid Interpretation Code 40 - 135 U/L AO ADM SS ALT With P-5'-P [Catalytic activity/Vol] 26 U/L Invalid Interpretation Code 14 - 59 U/L AO ADM SS AST With P-5'-P [Catalytic activity/Vol] 13 U/L Invalid Interpretation Code 10 - 40 U/L AO ADM SS Bilirubin [Mass/Vol] 0.5 mg/dL Invalid Interpretation Code 0.2 - 1.0 mg/dL AO ADM SS Calcium [Mass/Vol] 8.7 mg/dL Invalid Interpretation Code 8.4 - 10.2 mg/dL AO ADM SS Chloride [Moles/Vol] 105 mmol/L Invalid Interpretation Code 98 - 107 mmol/L AO ADM SS Cholesterol [Mass/Vol] 184 mg/dL Invalid Interpretation Code 0 - 200 mg/dL AO ADM SS Cholesterol in HDL [Mass/Vol] 48 mg/dL Invalid Interpretation Code 40 - 60 mg/dL AO ADM SS Cholesterol in LDL [Mass/Vol] 118 mg/dL Invalid Interpretation Code 0 - 130 mg/dL AO ADM SS CO2 [Moles/Vol] 25 mmol/L Invalid Interpretation Code 22 - 29 mmol/L AO ADM SS Creatinine [Mass/Vol] 0.73 mg/dL Invalid Interpretation Code 0.55 - 1.02 mg/dL AO ADM SS Electrolyte Balance 9.0 mEq/L Invalid Interpretation Code AO ADM SS Globulin 2.9 G/dL Invalid Interpretation Code AO ADM SS Glucose [Mass/Vol] 117 mg/dL Invalid Interpretation Code 70 - 105 mg/dL AO ADM SS Potassium [Moles/Vol] 4.4 mmol/L Invalid Interpretation Code 3.5 - 5.1 mmol/L AO ADM SS Protein [Mass/Vol] 6.3 G/dL Invalid Interpretation Code 6.4 - 8.2 G/dL AO ADM SS Sodium [Moles/Vol] 139 mmol/L Invalid Interpretation Code 136 - 145 mmol/L AO ADM SS Triglyceride [Mass/Vol] 88 mg/dL Invalid Interpretation Code 0 - 150 mg/dL AO ADM SS TSH Qn 1.07 m[IU]/L Invalid Interpretation Code 0.36 - 3.74 mcIU/mL AO ADM SS Urea nitrogen [Mass/Vol] 7 mg/dL Invalid Interpretation Code 7 - 18 mg/dL AO ADM SS Urea nitrogen/Creatinine [Mass ratio] 10 ratio Invalid Interpretation Code 7 - 27 ratio AO ADM SS Vit. D 25-Hydroxy 31.9 ng/mL Invalid Interpretation Code AO ADM SS LABORATORYOrdered By: Syd Howell on 07-31-2021 Basophil, Absolute 0.10 103/mcL Invalid Interpretation Code 0.00 - 0.19 10^3/mcL AO Auto Heme SS Basophils/100 WBC (Bld) 0.9 % Invalid Interpretation Code 0.0 - 2.5 % AO Auto Heme SS Eosinophil, Absolute 0.30 103/mcL Invalid Interpretation Code 0.00 - 0.40 10^3/mcL AO Auto Heme SS Eosinophils/100 WBC (Bld) 3.8 % Invalid Interpretation Code 0.0 - 7.0 % AO Auto Heme SS Erythrocyte distribution width (RBC) [Ratio] 14.5 % Invalid Interpretation Code 11.5 - 14.5 % AO Auto Heme SS Hematocrit (Bld) [Volume fraction] 43.1 % Invalid Interpretation Code 37.0 - 47.0 % AO Auto Heme SS Hemoglobin (Bld) [Mass/Vol] 14.4 G/dL Invalid Interpretation Code 12.0 - 16.0 G/dL AO Auto Heme SS Lymphocyte, Absolute 2.50 103/mcL Invalid Interpretation Code 0.77 - 3.85 10^3/mcL AO Auto Heme SS Lymphocytes/100 WBC (Bld) 34.6 % Invalid Interpretation Code 10.0 - 50.0 % AO Auto Heme SS MCH (RBC) [Entitic mass] 29.9 pg Invalid Interpretation Code 27.0 - 31.2 pg AO Auto Heme SS MCHC (RBC) [Mass/Vol] 33.4 G/dL Invalid Interpretation Code 33.0 - 37.0 G/dL AO Auto Heme SS MCV (RBC) [Entitic vol] 89.5 fL Invalid Interpretation Code 80.0 - 94.0 fL AO Auto Heme SS Monocyte, Absolute 0.30 103/mcL Invalid Interpretation Code 0.15 - 1.00 10^3/mcL AO Auto Heme SS Monocytes/100 WBC (Bld) 4.9 % Invalid Interpretation Code 1.7 - 13.0 % AO Auto Heme SS Neutrophil, Absolute 4.00 103/mcL Invalid Interpretation Code 2.85 - 6.16 10^3/mcL AO Auto Heme SS Neutrophils/100 WBC (Bld) 55.8 % Invalid Interpretation Code 37.0 - 80.0 % AO Auto Heme SS Platelet mean volume (Bld) [Entitic vol] 9.7 fL Invalid Interpretation Code 7.4 - 10.4 fL AO Auto Heme SS Platelets (Bld) [#/Vol] 284 103/mcL Invalid Interpretation Code 130 - 400 10^3/mcL AO Auto Heme SS RBC (Bld) [#/Vol] 4.82 106/mcL Invalid Interpretation Code 4.20 - 5.40 10^6/mcL AO Auto Heme SS WBC (Bld) [#/Vol] 7.10 103/mcL Invalid Interpretation Code 4.60 - 10.80 10^3/mcL AO Auto Heme SS LABORATORYOrdered By: SYSTEM SYSTEM on 07-31-2021 GFR 108 ml/min/1.73sqm Invalid Interpretation Code AO Chemistry S GFR Non- 89 ml/min/1.73sqm Invalid Interpretation Code AO Chemistry S XR LUMBAR SPINE 2-3 VIEWS (S TANDARD)on 05-06-2017 XR LUMBAR SPINE 2-3 VIEWS (STANDARD) 2 views lumbar spine reveals severe degenerative disc disease multiple levels L1-2 3045 and 5 1 normal alignment no fracture seenDictated by: JOB BRIZUELA on FriMay 06, 2017 11:18:19 AM EDTTranscribed by: JOB BRIZUELA on FriMay 06, 2017 11:18:19 AM EDTFinalized by: JOB BRIZUELA on FriMay 06, 2017 11:18:19 AM EDT [facility] XR Lumbar Spine 2-3 Views (S tandard)on 05-06-2017 XR Lumbar Spine 2-3 Views (Standard) 2 views lumbar spine reveals severe degenerative disc disease multiple levels L1-2 3045 and 5 1 normal alignment no fracture seen Invalid Interpretation Code [facility] Office Visit: F/U GERD/Galls toneson 03-26-2017 Fall risk assessment No [facility] [employer] Work Phone: Protein mass conc yes [facility] [employer] Work Phone: Protein mass conc Done [facility] [employer] Work Phone: Protein mass conc no [facility] [employer] Work Phone: Tobacco smoking status NHIS Never [facility] [employer] Work Phone: Tobacco smoking status WIIS Current every day smoker [facility] [employer] Work Phone: Clinical Lists Update: Prelo hospice manager 03-04-2017 Smoking cessation education (procedure) yes Invalid Interpretation Code [facility] [employer] Work Phone: Tobacco use HS Current every day smoker Invali d Interpretation Code [facility] [employer] Work Phone: Lab Report: Liver Profileon 03-04-2017 Albumin mass conc 3.5 g/dL 3.4-5.0 [facility] [employer] Work Phone: [phone] Alkaline phosphatase (ALP) 80 U/L Invalid Interpretation Code 45-117 [facility] [employer] Work Phone: [phone] ALP enzyme act/vol (Bld) 80 U/L 45-117 [facility] [employer] Work Phone: [phone] ALT enzyme act/vol 28 U/L 12-78 [facility] [employer] Work Phone: [phone] AST enzyme act/vol 19 U/L 15-37 [facility] [employer] Work Phone: [phone] Bilirubin mass conc 1.10 mg/dL High 0.20-1.00 [facility] [employer] Work Phone: [phone] Bilirubin.direct mass conc 0.16 mg/dL 0.00-0.30 [facility] [employer] Work Phone: [phone] Globulin 3.5 g/dL Invalid Interpretation Code 2.3-3.5 [facility] [employer] Work Phone: [phone] Globulin mass conc (S) 3.5 g/dL 2.3-3.5 [facility] [employer] Work Phone: [phone] Protein mass conc 7.0 g/dL 6.4-8.2 [facility] [employer] Work Phone: Office Visit: gall stones, a bd painon 03-04-2017 Alcoholism counseling (procedure) no Invalid Interpretation Code [facility] [employer] Work Phone: [phone] Dietary management education, guidance, and counseling (procedure) yes Invalid Interpretation Code [facility] [employer] Work Phone: [phone] Documentation of current medications (procedure) Done Invalid Interpretation Code [facility] [employer] Work Phone: [phone] Fall risk assessment No Invalid Interpretation Code [facility] [employer] Work Phone: [phone] Protein mass conc yes [facility] [employer] Work Phone: [phone] Protein mass conc Done [facility] [employer] Work Phone: [phone] Protein mass conc no [facility] [employer] Work Phone: Smoking cessation education (procedure) yes Invalid Interpretation Code [facility] [employer] Work Phone: Tobacco smoking status NHIS Never Invalid Interpretation Code [facility] [employer] Work Phone: Tobacco smoking status NHIS Current every day smoker [facility] [employer] Work Phone: Tobacco use [facility] Current every day smoker Invali d Interpretation Code [facility] [employer] Work Phone: Vital Signs Date Time Vital Sign Value Performing Clinician Facility 11-16-2024 17:48-0500 Body temperature 98.4 [degF] Ariadna Praisler-Wood OPERATIONS LABEL CLERK.SUPERVISOR [employer] Work Phone: [facility] 11-16-2024 17:48-0500 Body weight 179.9 kg Ariadna Praisler-Wood OPERATIONS LABEL CLERK.SUPERVISOR [employer] Work Phone: [facility] 11-16-2024 17:48-0500 Diastolic blood pressure 82 mm[Hg] Ariadna Praisler-Wood OPERATIONS LABEL CLERK.SUPERVISOR [employer] Work Phone: [facility] 11-16-2024 17:48-0500 Heart rate 78 /min Ariadna Praisler-Wood OPERATIONS LABEL CLERK.SUPERVISOR [employer] Work Phone: [facility] 11-16-2024 17:48-0500 Respiratory rate 18 /min Ariadna Praisler-Wood OPERATIONS LABEL CLERK.SUPERVISOR [employer] Work Phone: [facility] 11-16-2024 17:48-0500 SaO2% (BldA) [Mass fraction] 98 % Ariadna Praisler-Wood OPERATIONS LABEL CLERK.SUPERVISOR [employer] Work Phone: [facility] 11-16-2024 17:48-0500 Systolic blood pressure 128 mm[Hg] Ariadna Praisler-Wood OPERATIONS LABEL CLERK.SUPERVISOR [employer] Work Phone: [facility] 11-08-2024 14:14-0500 Body temperature 97.5 [degF] Ariadna Praisler-Wood OPERATIONS LABEL CLERK.SUPERVISOR [employer] Work Phone: [facility] 11-08-2024 14:14-0500 Body weight 183.3 kg Ariadna Praisler-Wood OPERATIONS LABEL CLERK.SUPERVISOR [employer] Work Phone: [facility] 11-08-2024 14:14-0500 Diastolic blood pressure 82 mm[Hg] Ariadna Praisler-Wood OPERATIONS LABEL CLERK.SUPERVISOR BLAST FURNACE Work Phone: [facility] 11-08-2024 14:14-0500 Heart rate 78 /min Ariadna Praisler-Wood OPERATIONS LABEL CLERK.SUPERVISOR BLAST FURNACE Work Phone: [facility] 11-08-2024 14:14-0500 Respiratory rate 18 /min Ariadna Praisler-Wood OPERATIONS LABEL CLERK.SUPERVISOR BLAST FURNACE Work Phone: [facility] 11-08-2024 14:14-0500 SaO2% (BldA) [Mass fraction] 99 % Ariadna Praisler-Wood OPERATIONS LABEL CLERK.SUPERVISOR BLAST FURNACE Work Phone: [facility] 11-08-2024 14:14-0500 Systolic blood pressure 124 mm[Hg] Ariadna Praisler-Wood OPERATIONS LABEL CLERK.SUPERVISOR [employer] FURNACE Work Phone: [facility] 03-02-2024 08:09-0400 Body temperature 97.81 [degF] Vijay Pendlebury OPERATIONS LABEL CLERK.SUPERVISOR BLAST FURNACE Work Phone: [facility] 03-02-2024 08:09-0400 Body weight 185 kg Vijay Pendlebury OPERATIONS LABEL CLERK.SUPERVISOR BLAST FURNACE Work Phone: [facility] 03-02-2024 08:09-0400 Diastolic blood pressure 80 mm[Hg] Vijay Pendlebury OPERATIONS LABEL CLERK.SUPERVISOR BLAST FURNACE Work Phone: [facility] 03-02-2024 08:09-0400 Heart rate 98 /min Vijay Pendlebury OPERATIONS LABEL CLERK.SUPERVISOR BLAST FURNACE Work Phone: [facility] 03-02-2024 08:09-0400 Respiratory rate 16 /min Vijay Pendlebury OPERATIONS LABEL CLERK.SUPERVISOR [employer] FURNACE Work Phone: [facility] 03-02-2024 08:09-0400 SaO2% (BldA) [Mass fraction] 96 % Vijay Pendlebury OPERATIONS LABEL CLERK.SUPERVISOR BLAST FURNACE Work Phone: [facility] 03-02-2024 08:09-0400 Systolic blood pressure 122 mm[Hg] Vijay Francetriny MCNULTYSUPERVISOR BLAST FURNACE Work Phone: [facility] 08-17-2023 08:23-0500 Body height 175.26 cm [facility] 08-17-2023 08:23-0500 Body mass index (BMI) [Ratio] 53.1 kg/m2 [facility] 08-17-2023 08:23-0500 Body temperature 96.9 [degF] [facility] 08-17-2023 08:23-0500 Body weight 163.29 kg [facility] 08-17-2023 08:23-0500 Diastolic blood pressure 82 mm[Hg] [facility] 08-17-2023 08:23-0500 Heart rate 72 /min [facility] 08-17-2023 08:23-0500 Respiratory rate 16 /min [facility] 08-17-2023 08:23-0500 SaO2% (BldA) [Mass fraction] 98 % [facility] 08-17-2023 08:23-0500 Systolic blood pressure 157 mm[Hg] [facility] 02-16-2023 19:31-0400 Respiratory rate 16 /min [facility] 02-16-2023 18:47-0400 Body height 175.26 cm [facility] 02-16-2023 18:47-0400 Body mass index (BMI) [Ratio] 56.8 kg/m2 [facility] 02-16-2023 18:47-0400 Body temperature 98.1 [degF] [facility] 02-16-2023 18:47-0400 Body weight 174.63 kg [facility] 02-16-2023 18:47-0400 Diastolic blood pressure 105 mm[Hg] [facility] 02-16-2023 18:47-0400 Heart rate 87 /min [facility] 02-16-2023 18:47-0400 SaO2% (BldA) [Mass fraction] 97 % [facility] 02-16-2023 18:47-0400 Systolic blood pressure 155 mm[Hg] [facility] 02-07-2023 12:29-0400 Diastolic blood pressure 87 mm[Hg] [facility] 02-07-2023 12:29-0400 Heart rate 65 /min [facility] 02-07-2023 12:29-0400 Respiratory rate 16 /min [facility] 02-07-2023 12:29-0400 SaO2% (BldA) [Mass fraction] 98 % [facility] 02-07-2023 12:29-0400 Systolic blood pressure 134 mm[Hg] [facility] 02-07-2023 04:12-0400 Body temperature 97.6 [degF] [facility] 02-06-2023 20:08-0400 Body mass index (BMI) [Ratio] 55.7 kg/m2 [facility] 02-06-2023 20:08-0400 Body weight 171.2 kg [facility] 02-03-2023 00:12-0400 Body height 175.26 cm [facility] 02-03-2023 00:12-0400 Body mass index (BMI) [Ratio] 56.4 kg/m2 [facility] 02-03-2023 00:12-0400 Body temperature 97.7 [degF] [facility] 02-03-2023 00:12-0400 Body weight 173.36 kg [facility] 02-03-2023 00:12-0400 Diastolic blood pressure 81 mm[Hg] [facility] 02-03-2023 00:12-0400 Heart rate 94 /min [facility] 02-03-2023 00:12-0400 Respiratory rate 18 /min [facility] 02-03-2023 00:12-0400 SaO2% (BldA) [Mass fraction] 99 % [facility] 02-03-2023 00:12-0400 Systolic blood pressure 139 mm[Hg] [facility] 07-03-2022 13:54-0400 Heart rate 61 /min [facility] Work Phone: 07-03-2022 13:54-0400 Respiratory rate 18 /min [facility] Work Phone: 07-03-2022 11:34-0400 Body height 175.26 cm [facility] Work Phone: 07-03-2022 11:34-0400 Body mass index (BMI) [Ratio] 53.3 kg/m2 [facility] Work Phone: 07-03-2022 11:34-0400 Body temperature 98 [degF] [facility] Work Phone: 07-03-2022 11:34-0400 Body weight 163.9 kg [facility] Work Phone: 07-03-2022 11:34-0400 Diastolic blood pressure 92 mm[Hg] [facility] Work Phone: 07-03-2022 11:34-0400 SaO2% (BldA) [Mass fraction] 100 % [facility] Work Phone: 07-03-2022 11:34-0400 Systolic blood pressure 138 mm[Hg] [facility] Work Phone: 03-07-2022 15:42-0400 Body height 175.26 cm [facility] Work Phone: 03-07-2022 15:42-0400 Body mass index (BMI) [Ratio] 51.5 kg/m2 [facility] Work Phone: 03-07-2022 15:42-0400 Body temperature 96.5 [degF] [facility] Work Phone: 03-07-2022 15:42-0400 Body weight 158.5 kg [facility] Work Phone: 03-07-2022 15:42-0400 Diastolic blood pressure 90 mm[Hg] [facility] Work Phone: 03-07-2022 15:42-0400 Heart rate 83 /min [facility] Work Phone: 03-07-2022 15:42-0400 Respiratory rate 16 /min [facility] Work Phone: 03-07-2022 15:42-0400 SaO2% (BldA) [Mass fraction] 99 % [facility] Work Phone: 03-07-2022 15:42-0400 Systolic blood pressure 134 mm[Hg] [facility] Work Phone: 09-09-2021 12:40-0500 Body temperature 98.42 [degF] DR GABY MCCARTHY MD [facility] 09-09-2021 12:40-0500 Diastolic blood pressure 89 mm[Hg] DR GABY MCCARTHY MD [facility] 09-09-2021 12:40-0500 Heart rate 76 /min DR GABY MCCARTHY MD [facility] 09-09-2021 12:40-0500 Respiratory rate 18 /min DR GABY MCCARTHY MD [facility] 09-09-2021 12:40-0500 Systolic blood pressure 141 mm[Hg] DR GABY MCCARTHY MD [facility] 09-03-2021 10:09-0500 Body temperature 98.24 [degF] MIKKI MUHAMMAD OPERATIONS LABEL CLERK-SUPERVISOR BLAST FURNACE [facility] 09-03-2021 10:09-0500 diastolic 98 mm[Hg] MIKKI MUHAMMAD OPERATIONS LABEL CLERK-SUPERVISOR BLAST FURNACE [facility] 09-03-2021 10:09-0500 Heart rate 64 /min MIKKI MUHAMMAD OPERATIONS LABEL CLERK-SUPERVISOR BLAST FURNACE [facility] 09-03-2021 10:09-0500 Respiratory rate 18 /min MIKKI BALTES OPERATIONS LABEL CLERK-SUPERVISOR BLAST FURNACE [facility] 09-03-2021 10:09-0500 systolic 126 mm[Hg] MIKKI BALTES OPERATIONS LABEL CLERK-SUPERVISOR BLAST FURNACE [facility] 09-03-2021 09:10-0500 Body temperature 97.88 [degF] MIKKI BALTES OPERATIONS LABEL CLERK-SUPERVISOR BLAST FURNACE [facility] 09-03-2021 09:10-0500 diastolic 76 mm[Hg] MIKKI BALTES OPERATIONS LABEL CLERK-SUPERVISOR BLAST FURNACE [facility] 09-03-2021 09:10-0500 Heart rate 70 /min MIKKI BALTES OPERATIONS LABEL CLERK-SUPERVISOR BLAST FURNACE [facility] 09-03-2021 09:10-0500 Respiratory rate 18 /min MIKKI BALTES OPERATIONS LABEL CLERK-SUPERVISOR BLAST FURNACE [facility] 09-03-2021 09:10-0500 systolic 139 mm[Hg] MIKKI BALTES OPERATIONS LABEL CLERK-SUPERVISOR BLAST FURNACE [facility] 09-03-2021 08:45-0500 Body temperature 97.52 [degF] MIKKI BALTES OPERATIONS LABEL CLERK-SUPERVISOR BLAST FURNACE [facility] 09-03-2021 08:45-0500 diastolic 69 mm[Hg] MIKKI BALTES OPERATIONS LABEL CLERK-SUPERVISOR BLAST FURNACE [facility] 09-03-2021 08:45-0500 Heart rate 72 /min MIKKI BALTES OPERATIONS LABEL CLERK-SUPERVISOR BLAST FURNACE [facility] 09-03-2021 08:45-0500 Respiratory rate 18 /min MIKKI MUHAMMAD APRN-SUPERVISOR BLAST FURNACE [facility] 09-03-2021 08:45-0500 systolic 111 mm[Hg] MIKKI MUHAMMAD APRN-SUPERVISOR BLAST FURNACE [facility] 05-06-2017 09:13-0400 BMI (Body Mass Index) 53.16 kg/m2 [facility] Work Phone: 05-06-2017 09:13-0400 Height 175.3 cm [facility] Work Phone: 05-06-2017 09:13-0400 Weight 163.29 kg [facility] Work Phone: 03-26-2017 13:12-0400 BMI (Body Mass Index) 53.6 kg/m2 Nicole Butler RN RN [facility] [employer] Work Phone: 03-26-2017 13:12-0400 Body Temperature 98.2 [degF] Nicole Butler RN RN [facility] [employer] Work Phone: 03-26-2017 13:12-0400 BP Diastolic 99 mm[Hg] Nicole Butler RN RN [facility] [employer] Work Phone: 03-26-2017 13:12-0400 BP Systolic 138 mm[Hg] Nicole Butler RN RN [facility] [employer] Work Phone: 03-26-2017 13:12-0400 BSA (Body Surface Area) 2.66 m2 Nicole Butler RN RN [facility] [employer] Work Phone: 03-26-2017 13:12-0400 Height 175.26 cm Nicole Butler RN RN [facility] [employer] Work Phone: 03-26-2017 13:12-0400 Pulse (Heart Rate) 92 /min Nicole Butler RN RN [facility] [employer] Work Phone: 03-26-2017 13:12-0400 Respiratory Rate 18 /min Nicole Butler RN RN [facility] [employer] Work Phone: 03-26-2017 13:12-0400 Weight 164.66 kg Nicole Butler RN RN [facility] [employer] Work Phone: 03-04-2017 08:59-0400 BMI (Body Mass Index) 53.97 kg/m2 Samia Winkler MD [facility] [employer] Work Phone: 03-04-2017 08:59-0400 Body Temperature 98.2 [degF] Samia Winkler MD [facility] [employer] Work Phone: 03-04-2017 08:59-0400 BP Diastolic 66 mm[Hg] Samia Winkler MD [facility] [employer] Work Phone: 03-04-2017 08:59-0400 BP Systolic 98 mm[Hg] Samia Winkler MD [facility] [employer] Work Phone: 03-04-2017 08:59-0400 Height 175.26 cm Samia Winkler MD [facility] [employer] Work Phone: 03-04-2017 08:59-0400 Pulse (Heart Rate) 96 /min Samia Winkler MD [facility] [employer] Work Phone: 03-04-2017 08:59-0400 Pulse Oximetry 98 % Samia Winkler MD [facility] [employer] Work Phone: 03-04-2017 08:59-0400 Respiratory Rate 20 /min Samia Winkler MD [facility] [employer] Work Phone: 03-04-2017 08:59-0400 Weight 165.79 kg Samia Winkler MD [facility] Work Phone: Encounters Encounter Date Encounter Type Care Provider Facility Start: 03-02-2025 Encounter for genera l adult medical examination without abnormal findings Abhinav Murry [facility] Start: 03-02-2025 ambulatory Abhinav Murry Facil ity:[facility] Start: 12-31-2024 End: 12-31-[address] ABHINAV MURRY DO Facility:[facility] Start: 12-29-[address] ABHINAV MURRY DO Fac ility[facility] Start: 11-16-2024 End: 11-16-2024 ambulatory ABHINAV MURRY Facility:[facility] Start: 11-16-2024 End: 11-16-2024 Office outpatient visit 25 minutes Ariadna Clemente OPERATIONS LABEL CLERK.SUPERVISOR BLAST FURNACE Work Phone: [facility] Comment on above: Foreign body in vagi na, initial encounter (Primary Dx) Start: 11-08-2024 End: 11-08-2024 ambulatory ABHINAV MURRY Facility:[facility] Start: 11-08-2024 End: 11-08-2024 Patient encounter procedure Ariadna Clemente APRN.SUPERVISOR [employer] FURNACE Work Phone: [facility] Comment on above: Sore throat (Primary Dx); Oral thrush Start: 11-05-2024 End: 11-05-2024 Emergency department patient visit Quintinbalaji Rodríguez Facility:[facility] Start: 10-14-2024 Encounter for genera l adult medical examination without abnormal findings Abhinav Murry [facility] Start: 09-09-2024 End: 09-09-2024 ambulatory Abhinav Murry Facility:[facility] Start: 03-02-2024 End: 03-02-2024 Subsequent hospital visit by physician Xr [facility] Work Phone: Radiology Comment on above: Pain of finger of ri ght hand [M79.644] Start: 03-02-2024 End: 03-02-2024 ambulatory ABHINAV MURRY Facility:[facility] Start: 03-02-2024 End: 03-02-2024 Office outpatient visit 15 minutes Vijay Smith OPERATIONS LABEL CLERK.SUPERVISOR BLAST FURNACE Work Phone: [facility] Comment on above: Pain of finger of ri ght hand (Primary Dx); Acute right-sided low back pain without sciatica Start: 09-04-2023 End: 09-04-2023 ambulatory [facility] Work Phone: Start: 09-04-2023 End: 09-04-2023 Patient encounter procedure [facility] Work Phone: Start: 08-17-2023 End: 08-17-2023 Emergency department patient visit [facility] Work Phone: Start: 02-16-2023 End: 02-16-2023 Emergency department patient visit [facility] Start: 02-06-2023 End: 02-07-2023 Emergency department patient visit [facility] Start: 02-03-2023 End: 02-03-2023 Emergency department patient visit [facility] Start: 08-02-2022 End: 08-03-[address] ABHINAV MURRY DO Facility:B Start: 07-18-2022 End: 07-18-2022 Emergency department patient visit [facility] Start: 07-03-2022 End: 07-03-2022 Emergency department patient visit [facility] Start: 03-07-2022 End: 03-07-2022 Emergency department patient visit [facility] Start: 12-13-2021 End: 12-13-2021 Subsequent hospital visit by physician Daphne Lake MD Work Phone: [facility] Start: 11-14-2021 End: 11-14-2021 Subsequent hospital visit by physician Abhinav Murry DO Work Phone: [facility] Start: 09-09-2021 End: 09-09-2021 Emergency department patient visit GABY MCCARTHY Facility:[facility] Start: 09-09-2021 End: 09-09-2021 Emergency department patient visit DR GABY MCCARTHY MD [facility] Start: 09-03-2021 End: 09-04-2021 ambulatory MIKKI MUHAMMAD Facility:A Start: 09-03-2021 End: 09-03-2021 Patient encounter procedure MIKKI MUHAMMAD UBALDO-SUPERVISOR BLAST FURNACE [facility] Start: 07-31-2021 End: 07-31-[address] ABHINAV MURRY DO [facility] Start: 07-27-2021 End: 07-27-2021 Subsequent hospital visit by physician Daphne Lake MD Work Phone: [facility] Start: 07-04-2021 End: 07-04-2021 Subsequent hospital visit by physician Blanco Reyes MD Work Phone: [facility] Start: 09-30-2017 Ambulatory DANIEL Wilkins JOHNTONY Facility: [facility] Start: 05-06-2017 End: 05-06-2017 Ambulatory Critical access hospital Amb[facility] Start: 05-06-2017 Office/outpatient visit, new, level [facility] Work Phone: [facility] Start: 05-01-2017 Ambulatory CHERISE KINSEY [facility] Ambulatory Procedures Date Procedure Procedure Detail Performing Clinician Start: 11-08-2024 STREP A MOLECULAR (POC) Ariadna Clemente APRN.SUPERVISOR [employer]NACE Work Phone: Start: 03-02-2024 Radex fingr minimum 2 views Vijay Smith APRN.SUPERVISOR [employer]NA[employer] Work Phone: Start: 02-03-2023 X-ray of lumbar spin e, two or three views Start: 03-07-2022 Radiologic examinati on of knee Start: 06-20-2020 Ganglion cyst of rig ht wrist (disorder) DR ABHINAV MURRY DO Start: 03-26-2017 End: 03-26-2017 Dietary management education, guidance, and counseling Nicole Butler RN RN Start: 03-04-2017 End: 03-04-2017 Dietary management education, guidance, and counseling Samia Winkler MD Start: 03-04-2017 End: 06-13-2017 *Hepatic Function Panel Samia wilkins MD Work Phone: Tonsillectomy DR ABHINAV CAMPBELL DO Tube (qualifier value) DR ABY MURRY DO Comment on above: in ear as a child Plan of Treatment Date Care Activity Detail Author Start: 04-14-2025 DTaP/Tdap/Td vaccine (3 - Td or Tdap) DTaP/Tdap/Td vaccine (3 - Td or Tdap) [facility] Start: 04-14-2025 Urine microalbumin profile DTaP,Tdap,Td Vaccine (3 - Td or Tdap) [facility] Start: 05-23-2024 Covid-19 Vaccine ( season) Covid-19 Vaccine () [facility] Start: 05-23-2024 Covid-19 Vaccine () Covid-19 Vaccine () [facility] Start: 05-23-2024 Influenza vaccination Influenza Vaccine (#1) [facility] Start: 09-22-2023 Behavioral Health Screening Behavioral Health Screening [facility] Start: 08-17-2023 [facility] Start: 2023 Screening for malignant neoplasm of breast Mammogram Screening [facility] Start: 05-23-2023 Covid-19 Vaccine ( season) Covid-19 Vaccine () [facility] Start: 02-06-2023 Referral to service [facility] Start: 02-06-2023 End: 02-06-2023 Suicide precautions [facility] Start: 11-14-2022 Depression Monitoring Depression Monitoring [facility] Start: 01-14-2022 End: 01-14-2022 Patient encounter procedure 01/14/2022 Office Visit Weight Management Daphne Lake MD [address] [place] [id number] [facility] Start: 12-13-2021 End: 12-13-2021 Patient encounter procedure [facility] Start: 10-03-2021 End: 10-03-2021 Patient encounter procedure 10/03/2021 Office Visit Weight Management Daphne Lake MD [address] [place], [place] [id number] [facility] Start: 09-05-2021 End: 09-05-2021 Patient encounter procedure [facility] Start: 07-27-2021 End: 07-27-2021 Patient encounter procedure 07/27/2021 Office Visit Weight Management Daphne Lake MD [address] [place] [address] [phone] [facility] Start: 07-09-2021 End: 07-09-2021 Patient encounter procedure 07/09/2021 Office Visit Weight Management Miriam Thapa MS, RD, LD [address] [place], [place] [id number] [facility] Start: 05-23-2021 Influenza vaccination Flu vaccine (#1) [facility] Start: 2018 Diabetes screen Diabetes screen [facility] Start: 05-23-2017 SEQUENTIAL INFLUENZA VACCINE (#1) SEQUENTIAL INFLUENZA VACCINE (#1) [facility] Work Phone: Start: 03-26-2017 End: 03-26-2017 Appointment Appointment [facility] [employer] Work Phone: Start: 03-26-2017 End: 03-26-2017 Follow-up visit Follow Up as needed [facility] [employer] Work Phone: Start: 03-04-2017 End: 03-04-2017 Appointment Appointment [facility] [employer] Work Phone: Start: 03-04-2017 End: 03-04-2017 *Hepatic Function Panel *Hepatic Function Panel [facility] [employer] Work Phone: Start: 2013 Screening for malignant neoplasm of cervix [facility] Start: 2004 Screening for malignant neoplasm of cervix [facility] Start: 2002 Hepatitis B Vaccine (1 of 3 - 19+ 3-dose series) Hepatitis B Vaccine (1 of 3 - 19+ 3-dose series) [facility] Start: 2002 Pneumococcal vaccination Pneumococcal Vaccine (1 of 2 - PCV) [facility] Start: 2001 Anxiety Screening Anxiety Screening [facility] Start: 2001 Depression Screening Depression Screening [facility] Start: 2001 Hepatitis C screening Hepatitis C Screening [facility] Start: 2001 HIV screening HIV Screening [facility] Start: 1998 HIV screening HIV screen [facility] Start: 1995 COVID-19 Vaccine (1) COVID-19 Vaccine (1) [facility] Work Phone: Start: 1995 Depression Monitoring Depression Monitoring [facility] Start: 1989 Pneumococcal 0-64 years Vaccine (1 of 2 - PPSV23) Pneumococcal 0-64 years Vaccine (1 of 2 - PPSV23) [facility] Start: 1989 Pneumococcal vaccination Pneumococcal Vaccine (1 of 2 - PCV) [facility] Start: 1988 COVID-19 Vaccine (1) COVID-19 Vaccine (1) [facility] Start: 1984 Varicella vaccine (1 of 2 - 2-dose childhood series) Varicella vaccine (1 of 2 - 2-dose childhood series) [facility] Start: 1983 Cytopathology procedure, preparation of smear, genital source PAP SMEAR [facility] Work Phone: Start: 1983 Hepatitis C screening Hepatitis C screen [facility] Start: 1983 TETANUS EVERY 10 YR TETANUS EVERY 10 YR [facility] Work Phone: Patient Education [facility] Work Phone: Patient referral [facility] Work Phone: Immunizations Immunization Date Immunization Notes Care Provider [facility] 09-10-2024 influenza, seasonal, injectable, preservative free Ariadna Clemente OPERATIONS LABEL CLERK.SUPERVISOR [employer] FURNACE Work Phone: [facility] 09-11-2023 influenza, injectabl e, quadrivalent, preservative free Ariadna Clemente OPERATIONS LABEL CLERK.SUPERVISOR BLAST FURNACE Work Phone: [facility] 09-11-2023 influenza virus vaccine, unspecified formulation [employer] Work Phone: [facility] 08-02-2022 influenza, injectabl e, quadrivalent, preservative free Ariadna Praisler-Wood OPERATIONS LABEL CLERK.SUPERVISOR BLAST FURNACE Work Phone: [facility] 07-02-2021 influenza, injectabl e, quadrivalent, preservative free Ariadna Praisler-Wood OPERATIONS LABEL CLERK.SUPERVISOR BLAST FURNACE Work Phone: [facility] 02-01-2021 SARS-CoV-2 (COVID-19 ) mRNA-[id number] ABHINAV MURRY DO [facility] Comment on above: Result Comment: 2020: TPVAL 01-04-2021 SARS-CoV-2 (COVID-19 ) mRNA-[address] ABHINAV MURRY DO [facility] Comment on above: Result Comment: 2020: TPVAL 07-04-2020 influenza, injectabl e, quadrivalent, preservative free; Translations: [Fluarix PF Quadrivalent ] DR ABHINAV MURRY DO [facility] 07-05-2019 influenza virus vaccine, unspecified formulation DR ABHINAV MURRY DO [facility] 07-05-2019 influenza, injectabl e, quadrivalent, preservative free Ariadna Praisler-Wood OPERATIONS LABEL CLERK.SUPERVISOR [employer]URNACE Work Phone: [facility] 08-27-2018 influenza virus vaccine, unspecified formulation DR ABHINAV MURRY DO [facility] 08-27-2018 influenza, injectabl e, quadrivalent, preservative free Ariadna Praisler-Wood OPERATIONS LABEL CLERK.SUPERVISOR [employer]URNACE Work Phone: [facility] 04-14-2015 tetanus toxoid, reduced diphtheria toxoid, and acellular pertussis vaccine, adsorbed DR ABHINAV MURRY DO [facility] 02-18-2012 tetanus toxoid, reduced diphtheria toxoid, and acellular pertussis vaccine, adsorbed Vijay Smith APRN.SUPERVISOR BLAST FURNACE Work Phone: [facility] Payers Date Payer Category Payer Medicaid [id number] 2023 Self-pay [id number] 2023 Unknown [id number] 2021 Private Health Insurance [id number] 2017 Worker's Compensation [id number] 1983 Unknown [id number] 2.16. [id number] 1983 Unknown [id number] 2.16.8 [id number] 1983 Unknown [id number] 2.16.8 [id number] 1983 Unknown [id number] 2.16.8 [id number] 1983 Unknown [id number] 2.16.8 [id number] 1983 Unknown [id number] 2.16.8 [id number] Unknown [id number] 2.16.8 [id number] Unknown [id number] 2.16.8 [id number] Unknown [id number] 2.16.8 [id number] Social History Date Type Detail Facility Start: 02-18-2012 End: 05-06-2017 Tobacco smoking status NHIS Current every day smoker [facility] Work Phone: Start: 1985 Sex Assigned At Not on file [facility] Work Phone: History of tobacco use Cigarette Smoker [facility] Start: 07-04-2021 End: 03-02-2024 Cigarettes smoked current (pack per day) - Reported [facility] Work Phone: Start: 02-18-2012 End: 07-04-2021 Tobacco use and exposure Never used [facility] Start: 07-04-2021 End: 11-16-2024 Alcohol intake Current drinker of alcohol (finding) [facility] Work Phone: Start: 07-04-2021 Alcohol Comment occassionally [facility] Phone: Start: 06-07-2020 Heavy tobacco smoker (finding) [facility] Start: 1985 Sex Assigned At Female [facility] Start: 03-07-2022 End: 08-17-2023 Tobacco smoking status NHIS Unknown if ever smoked [facility] Start: 08-02-2020 None [facility] Start: 10-07-2018 Alone [facility] Start: 07-06-2020 Cigarettes [facility] Start: 03-02-2024 Tobacco use panel [facility] Start: 02-18-2012 Alcohol Comment Infrequent. 5- 10 per year. [facility] NEGATED: Highlighted row [facility] Functional Status Date Assessment Result Facility 04-14-2015 Are you deaf, or do you have serious difficulty hearing No 04/14/2015 8:57 AM Kacie Roland LPN No [facility] 04-14-2015 Are you blind, or do you have serious difficulty seeing, even when wearing glasses No 04/14/2015 8:57 AM EDT Kim Kacie ROWE No [facility] 04-14-2015 Do you have serious difficulty walking or climbing stairs No 04/14/2015 8:57 AM EDT Julio Kacie ROWE No [facility] 04-14-2015 Do you have difficul ty dressing or bathing No 04/14/2015 8:57 AM EDBushra Kim Kacie ROWE No [facility] 04-14-2015 Because of a physica l, mental, or emotional condition, do you have difficulty doing errands alone such as visiting a physician's office or shopping No 04/14/2015 8:57 AM EDBushra Kim Kacie ROWE No [facility] Mental Status Date Assessment Result Facility 07-03-2022 Cognitive function Level Of Cons ciousness Awake;Alert;Appropriate;Fol lows Commands [facility] Work Phone: 04-14-2015 Because of a physica l, mental, or emotional condition, do you have serious difficulty concentrating, remembering, or making decisions No 04/14/2015 8:57 AM EDT Julio Kacie ROWE No [facility] Clinical Notes 09-26-2020 to 11-16-2024 Patient InstructionsAriadna Clemente APRN.SUPERVISOR [employer] - 11/16/2024 6:16 PM ESTPatient InstructionsAriadna Clemente APRN.CNP - 11/08/2024 2:25 PM ESTRadiology Note Date & Type Note Facility 11-16-2024 Instructions Lacy Wilkinson - 11/16/2024 6:25 PM EST ASSESSMENT/PLAN: 1. Foreign body in vagina, initial encounter - ICD9: 939.2, E915, ICD10: T19.2XXA - foreign body extracted from vaginal canal during visit with sleeping car conductor present - no injury noted to the vaginal canal - pt instructed to return or see PCP if experiencing increase pain and/or fever. - pt agreeable to plan. documented in this encounter [facility] 11-16-2024 Note HNO ID: [id number] Author: ARIADNA CLEMENTE APRN.SUPERVISOR [employer] Service: ? Author Type: Nurse Practitioner Type: Progress Notes Filed: 11/16/2024 18:32 Note Text: Subjective Vaginal Problem Pertinent negatives include no chills, fever or myalgias. Pt is a 39 y/o female who presents with concerns that a tampon is lodged in vaginal canal x 3 days. Pt reports placing tampon on Friday and proceeded to have sexual intercourse before taking it out by mistake. Pt tried to retrieve tampon herself but was unsuccessful as she could not feel the string. Pt reports increased odor and abnormal brown discharge over the weekend. No reports of fever, chills. No reports of increased pain. Review of Systems Constitutional: Negative for chills and fever. Genitourinary: Positive for vaginal discharge. Negative for dysuria, frequency and urgency. Pt has sensation that tampon is stuck in vaginal canal with increased odor and abnormal brown discharge Musculoskeletal: Negative for myalgias. BP 128/82 Pulse 78 Temp 36.9 ?C (98.4 ?F) (Tympanic) Resp 18 Wt (!) 179.9 kg (396 lb 9.7 oz) LMP 04/03/2015 (Approximate) SpO2 98% History reviewed. No pertinent past medical history. PAST SURGICAL HISTORY Procedure Laterality Date ECISION OF LINGUAL TONSIL ~ age 8. MYRINGOTOMY ASPIRAND/EUSTACHIAN TUBE NFLTJ ANES Myringotomy/tubes ALLERGIES Latex MEDICATIONS nystatin (MYCOSTATIN) 100,000 unit/mL suspension Take 5 mL by mouth four times daily. 1tsp swish in mouth for several minutes, then swallow (or expectorate) 4 times daily until gone. buPROPion XL (WELLBUTRIN XL) 150 mg 24 hr tablet Take 1 tablet by mouth every afternoon. cholecalciferol, vitamin D3, 10 mcg (400 unit) cap Take by mouth as directed. citalopram (CELEXA) 40 mg tablet Take 40 mg by mouth once daily. omeprazole (PRILOSEC) 40 mg capsule Take 40 mg by mouth once daily. predniSONE (DELTASONE) 10 mg tablet Take 4 tabs daily for 3 days, then 2 tabs daily for 3 days, then 1 tab daily for 3 days with food. (Patient not taking: Reported on 11/08/2024) Pnalmce-Odrnsknvyesuj-Ohxdkuct (EXCEDRIN) 250-250-65 mg per tablet Take 1 tablet by mouth every 6 hours as needed. FAMILY HISTORY Problem Relation Age of Onset Diabetes Unknown Heart Unknown Lipids Unknown Cancer Maternal Aunt Breast Cancer Maternal Aunt Cancer Maternal Aunt Social History Tobacco Use Smoking status: Every Day Current packs/day: 1.00 Types: Cigarettes Smokeless tobacco: Never Substance Use Topics Alcohol use: Yes Comment: Infrequent. 5-10 per year. Objective Physical Exam Exam conducted with a sleeping car conductor present. Genitourinary: General: Normal vulva. Pubic Area: No rash. Vagina: Foreign body present. No signs of injury. Bleeding (active menstrual cycle) present. Participation of a fellow, resident, medical student, or advanced practice provider student in performing the sensitive examination was discussed with the patient or authorized pharmacy sales representative. The patient or authorized pharmacy sales representative has agreed to proceed with the sensitive examination. (Sensitive examination includes inspection and/or palpation of the breasts, pelvis, prostate and anorectal regions) ASSESSMENT/PLAN: 1. Foreign body in vagina, initial encounter - ICD9: 939.2, E915, ICD10: T19.2XXA - foreign body extracted from vaginal canal during visit using sponge forceps with sleeping car conductor present - no injury noted to the vaginal canal - pt instructed to return or see PCP if experiencing any pain and/or fever. - pt agreeable to plan. Lacy Wilkinson TEACHING PROVIDER (Physician/PA/OPERATIONS LABEL CLERK) NOTE OF PERSONAL INVOLVEMENT IN CARE: I have personally seen and examined the patient and performed the medical decision-making components. I have reviewed the Advanced Practice Registered Nurse (OPERATIONS LABEL CLERK) Student's documentation and verified the findings in the note as written. Any additions or changes are noted in bold/italics. Signature: Ariadna Clemente Date: 11/16/2024 Time: 6:32 PM [facility] 11-16-2024 History of Present illness Narrative Subjective Vaginal Problem Pertinent negatives include no chills, fever or myalgias. Pt is a 39 y/o female who presents with concerns that a tampon is lodged in vaginal canal x 3 days. Pt reports placing tampon on Friday and proceeded to have sexual intercourse before taking it out by mistake. Pt tried to retrieve tampon herself but was unsuccessful as she could not feel the string. Pt reports increased odor and abnormal brown discharge over the weekend. No reports of fever, chills. No reports of increased pain. Review of Systems Constitutional: Negative for chills and fever. Genitourinary: Positive for vaginal discharge. Negative for dysuria, frequency and urgency. Pt has sensation that tampon is stuck in vaginal canal with increased odor and abnormal brown discharge Musculoskeletal: Negative for myalgias. BP 128/82 Pulse 78 Temp 36.9 C (98.4 F) (Tympanic) Resp 18 Wt (!) 179.9 kg (396 lb 9.7 oz) LMP 04/03/2015 (Approximate) SpO2 98% History reviewed. No pertinent past medical history. PAST SURGICAL HISTORY Procedure Laterality Date ECISION OF LINGUAL TONSIL ~ age 8. MYRINGOTOMY ASPIR&/EUSTACHIAN TUBE NFLTJ ANES Myringotomy/tubes ALLERGIES Latex MEDICATIONS nystatin (MYCOSTATIN) 100,000 unit/mL suspension Take 5 mL by mouth four times daily. 1tsp swish in mouth for several minutes, then swallow (or expectorate) 4 times daily until gone. buPROPion XL (WELLBUTRIN XL) 150 mg 24 hr tablet Take 1 tablet by mouth every afternoon. cholecalciferol, vitamin D3, 10 mcg (400 unit) cap Take by mouth as directed. citalopram (CELEXA) 40 mg tablet Take 40 mg by mouth once daily. omeprazole (PRILOSEC) 40 mg capsule Take 40 mg by mouth once daily. predniSONE (DELTASONE) 10 mg tablet Take 4 tabs daily for 3 days, then 2 tabs daily for 3 days, then 1 tab daily for 3 days with food. (Patient not taking: Reported on 11/08/2024) Sydatre-Gtrsposjmqemu-Emrvqutk (EXCEDRIN) 250-250-65 mg per tablet Take 1 tablet by mouth every 6 hours as needed. FAMILY HISTORY Problem Relation Age of Onset Diabetes Unknown Heart Unknown Lipids Unknown Cancer Maternal Aunt Breast Cancer Maternal Aunt Cancer Maternal Aunt Social History Tobacco Use Smoking status: Every Day Current packs/day: 1.00 Types: Cigarettes Smokeless tobacco: Never Substance Use Topics Alcohol use: Yes Comment: Infrequent. 5-10 per year. Objective Physical Exam Exam conducted with a sleeping car conductor present. Genitourinary: General: Normal vulva. Pubic Area: No rash. Vagina: Foreign body present. No signs of injury. Bleeding (active menstrual cycle) present. Participation of a fellow, resident, medical student, or advanced practice provider student in performing the sensitive examination was discussed with the patient or authorized pharmacy sales representative. The patient or authorized pharmacy sales representative has agreed to proceed with the sensitive examination. (Sensitive examination includes inspection and/or palpation of the breasts, pelvis, prostate and anorectal regions) ASSESSMENT/PLAN: 1. Foreign body in vagina, initial encounter - ICD9: 939.2, E915, ICD10: T19.2XXA - foreign body extracted from vaginal canal during visit using sponge forceps with sleeping car conductor present - no injury noted to the vaginal canal - pt instructed to return or see PCP if experiencing any pain and/or fever. - pt agreeable to plan. Lacy Wilkinson TEACHING PROVIDER (Physician/PA/OPERATIONS LABEL CLERK) NOTE OF PERSONAL INVOLVEMENT IN CARE: I have personally seen and examined the patient and performed the medical decision-making components. I have reviewed the Advanced Practice Registered Nurse (OPERATIONS LABEL CLERK) Student's documentation and verified the findings in the note as written. Any additions or changes are noted in bold/italics. Signature: Ariadna Clemente Date: 11/16/2024 Time: 6:32 PM documented in this encounter [facility] 11-08-2024 Instructions Ariadna Clemente APRN.SUPERVISOR [employer] - 11/08/2024 2:40 PM EST ASSESSMENT/PLAN: 1. Sore throat - ICD9: 462, ICD10: J02.9 (primary diagnosis) - suspect viral - Group A strep molecular testing negative - Discussed supportive care treatment with fluids, rest and analgesia. - STREP A MOLECULAR (POC) 2. Oral thrush - ICD9: 112.0, ICD10: B37.0 - NYSTATIN 100,000 UNIT/ML ORAL SUSPENSION - Follow-up with your PCP in 3-5 days if symptoms have not improved or sooner if symptoms worsen - Discussed red flags and need for immediate medical evaluation if any occur. - Discussed supportive care treatment with fluids, rest and analgesia. - Discussed expected course of illness Ariadna Clemente APRN.SUPERVISOR [employer]URNACE documented in this encounter [facility] 11-08-2024 Note HNO ID: [id number] Author: ARIADNA CLEMENTE APRN.YASH Service: ? Author Type: Nurse Practitioner Type: Progress Notes Filed: 11/08/2024 14:42 Note Text: Subjective Sore Throat Pertinent negatives include no congestion or coughing. Mary Toth is a 39 year old female who presents with sore throat, trouble swallowing, sore tongue x 1 day. She denies fever, chills, URI symptoms. Denies recent antibiotic use or new medications. She took tylenol for sore throat. Review of Systems Constitutional: Negative for fever. HENT: Positive for sore throat. Negative for congestion. Respiratory: Negative for cough. Cardiovascular: Negative. BP 124/82 Pulse 78 Temp 36.4 ?C (97.5 ?F) (Tympanic) Resp 18 Wt (!) 183.3 kg (404 lb 1.7 oz) LMP 04/03/2015 (Approximate) SpO2 99% History reviewed. No pertinent past medical history. PAST SURGICAL HISTORY Procedure Laterality Date ECISION OF LINGUAL TONSIL ~ age 8. MYRINGOTOMY ASPIRAND/EUSTACHIAN TUBE NFLTJ ANES Myringotomy/tubes ALLERGIES Latex MEDICATIONS buPROPion XL (WELLBUTRIN XL) 150 mg 24 hr tablet Take 1 tablet by mouth every afternoon. cholecalciferol, vitamin D3, 10 mcg (400 unit) cap Take by mouth as directed. citalopram (CELEXA) 40 mg tablet Take 40 mg by mouth once daily. omeprazole (PRILOSEC) 40 mg capsule Take 40 mg by mouth once daily. predniSONE (DELTASONE) 10 mg tablet Take 4 tabs daily for 3 days, then 2 tabs daily for 3 days, then 1 tab daily for 3 days with food. (Patient not taking: Reported on 11/08/2024) Qmhiyga-Qgghsdwihrlxr-Wscggadf (EXCEDRIN) 250-250-65 mg per tablet Take 1 tablet by mouth every 6 hours as needed. FAMILY HISTORY Problem Relation Age of Onset Diabetes Unknown Heart Unknown Lipids Unknown Cancer Maternal Aunt Breast Cancer Maternal Aunt Cancer Maternal Aunt Social History Tobacco Use Smoking status: Every Day Current packs/day: 1.00 Types: Cigarettes Smokeless tobacco: Never Substance Use Topics Alcohol use: Yes Comment: Infrequent. 5-10 per year. Objective Physical Exam Vitals and nursing note reviewed. Constitutional: Appearance: Normal appearance. HENT: Mouth/Throat: Mouth: Mucous membranes are moist. Pharynx: No oropharyngeal exudate or posterior oropharyngeal erythema. Cardiovascular: Rate and Rhythm: Normal rate. Pulmonary: Effort: Pulmonary effort is normal. Neurological: Mental Status: She is alert. ASSESSMENT/PLAN: 1. Sore throat - ICD9: 462, ICD10: J02.9 (primary diagnosis) - suspect viral - Group A strep molecular testing negative - Discussed supportive care treatment with fluids, rest and analgesia. - STREP A MOLECULAR (POC) 2. Oral thrush - ICD9: 112.0, ICD10: B37.0 - NYSTATIN 100,000 UNIT/ML ORAL SUSPENSION - Follow-up with your PCP in 3-5 days if symptoms have not improved or sooner if symptoms worsen - Discussed red flags and need for immediate medical evaluation if any occur. - Discussed supportive care treatment with fluids, rest and analgesia. - Discussed expected course of illness Ariadna Clemente APRN.[facility] 11-08-2024 History of Present illness Narrative Images from the original note were not included. Subjective Sore Throat Pertinent negatives include no congestion or coughing. Mary Toth is a 39 year old female who presents with sore throat, trouble swallowing, sore tongue x 1 day. She denies fever, chills, URI symptoms. Denies recent antibiotic use or new medications. She took tylenol for sore throat. Review of Systems Constitutional: Negative for fever. HENT: Positive for sore throat. Negative for congestion. Respiratory: Negative for cough. Cardiovascular: Negative. BP 124/82 Pulse 78 Temp 36.4 C (97.5 F) (Tympanic) Resp 18 Wt (!) 183.3 kg (404 lb 1.7 oz) LMP 04/03/2015 (Approximate) SpO2 99% History reviewed. No pertinent past medical history. PAST SURGICAL HISTORY Procedure Laterality Date ECISION OF LINGUAL TONSIL ~ age 8. MYRINGOTOMY ASPIR&/EUSTACHIAN TUBE NFLTJ ANES Myringotomy/tubes ALLERGIES Latex MEDICATIONS buPROPion XL (WELLBUTRIN XL) 150 mg 24 hr tablet Take 1 tablet by mouth every afternoon. cholecalciferol, vitamin D3, 10 mcg (400 unit) cap Take by mouth as directed. citalopram (CELEXA) 40 mg tablet Take 40 mg by mouth once daily. omeprazole (PRILOSEC) 40 mg capsule Take 40 mg by mouth once daily. predniSONE (DELTASONE) 10 mg tablet Take 4 tabs daily for 3 days, then 2 tabs daily for 3 days, then 1 tab daily for 3 days with food. (Patient not taking: Reported on 11/08/2024) Sqlvoxo-Pgljpyacclgvx-Lxqopvob (EXCEDRIN) 250-250-65 mg per tablet Take 1 tablet by mouth every 6 hours as needed. FAMILY HISTORY Problem Relation Age of Onset Diabetes Unknown Heart Unknown Lipids Unknown Cancer Maternal Aunt Breast Cancer Maternal Aunt Cancer Maternal Aunt Social History Tobacco Use Smoking status: Every Day Current packs/day: 1.00 Types: Cigarettes Smokeless tobacco: Never Substance Use Topics Alcohol use: Yes Comment: Infrequent. 5-10 per year. Objective Physical Exam Vitals and nursing note reviewed. Constitutional: Appearance: Normal appearance. HENT: Mouth/Throat: Mouth: Mucous membranes are moist. Pharynx: No oropharyngeal exudate or posterior oropharyngeal erythema. Cardiovascular: Rate and Rhythm: Normal rate. Pulmonary: Effort: Pulmonary effort is normal. Neurological: Mental Status: She is alert. ASSESSMENT/PLAN: 1. Sore throat - ICD9: 462, ICD10: J02.9 (primary diagnosis) - suspect viral - Group A strep molecular testing negative - Discussed supportive care treatment with fluids, rest and analgesia. - STREP A MOLECULAR (POC) 2. Oral thrush - ICD9: 112.0, ICD10: B37.0 - NYSTATIN 100,000 UNIT/ML ORAL SUSPENSION - Follow-up with your PCP in 3-5 days if symptoms have not improved or sooner if symptoms worsen - Discussed red flags and need for immediate medical evaluation if any occur. - Discussed supportive care treatment with fluids, rest and analgesia. - Discussed expected course of illness Ariadna Clemente APRN.SUPERVISOR [employer]NACE documented in this encounter [facility] 03-02-2024 History of Present illness Narrative Radiology Service Progress Note PATIENT NAME: Mary Toth DATE OF SERVICE: March 02, 2024 TIME: 8:27 AM PATIENT IDENTITY VERIFICATION COMPLETED USING TWO (2) IDENTIFIERS: Name and Date of confirmed by patient verbally. FALL SCREENING: Has the patient had 2 falls in the last year or 1 fall with injury or currently using an Ambulatory Assistive Device (Walker, Cane, Wheelchair, Crutches, etc.)? No PATIENT GENDER DATA: Female. status: : No status: NO. PATIENT RELEVANT IMPLANT DATA REVIEWED: Not Applicable PATIENT PRESENTS WITH AN IMPLANTABLE OR ATTACHED BOOKER: No RADIOLOGY DEPARTMENT: General X-ray: Exam(s) Completed: Upper Extremity X-Ray(s): Fingers/Thumb, right PERIPHERAL IV DATA: Not applicable SIGNED BY: LIS San) March 02, 2024 8:27 AM documented in this encounter [facility] 03-02-2024 Note HNO ID: [id number] Author: MARIELENA GUZMAN RT (R) Service: Radiology Author Type: Technologist Type: Progress Notes Filed: 03/02/2024 08:33 Note Text: Radiology Service Progress Note PATIENT NAME: Mary Toth DATE OF SERVICE: March 02, 2024 TIME: 8:27 AM PATIENT IDENTITY VERIFICATION COMPLETED USING TWO (2) IDENTIFIERS: Name and Date of confirmed by patient verbally. FALL SCREENING: Has the patient had 2 falls in the last year or 1 fall with injury or currently using an Ambulatory Assistive Device (Walker, Cane, Wheelchair, Crutches, etc.)? No PATIENT GENDER DATA: Female. status: : No status: NO. PATIENT RELEVANT IMPLANT DATA REVIEWED: Not Applicable PATIENT PRESENTS WITH AN IMPLANTABLE OR ATTACHED BOOKER: No RADIOLOGY DEPARTMENT: General X-ray: Exam(s) Completed: Upper Extremity X-Ray(s): Fingers/Thumb, right PERIPHERAL IV DATA: Not applicable SIGNED BY: Marielena Guzman, RT(R) March 02, 2024 8:27 AM [facility] 03-02-2024 Note HNO ID: [id number] Author: VIAJY SMITH APRN.SUPERVISOR [employer] Service: ? Author Type: Nurse Practitioner Type: Progress Notes Filed: 03/02/2024 09:17 Note Text: Subjective HPI Nontoxic-appearing female presents urgent care chief complaint finger pain and back pain. Finger pain started this morning. Unable to fully extend DIP joint of right third digit. No known trauma. States area is sore if she pushes over it. Initially has had back pain for 3 to 4 weeks. History of back pain this is similar. No known injuries. No saddle anesthesia or incontinence. No traumatic injuries. No radiculopathy. Denies any fever body aches chills productive cough chest pain shortness of breath pleuritic pain hemoptysis nausea vomiting abdominal pain change in bowel or bladder habits. Past medical history prescription medication use and allergies reviewed. Denies chance of . .Patient presents with: Finger Pain: right middle finger unable to straighten x this am, lower back pain x few weeks History reviewed. No pertinent past medical history. PAST SURGICAL HISTORY Procedure Laterality Date ECISION OF LINGUAL TONSIL ~ age 8. MYRINGOTOMY ASPIRAND/EUSTACHIAN TUBE NFLTJ ANES Myringotomy/tubes ALLERGIES Latex MEDICATIONS buPROPion XL (WELLBUTRIN XL) 150 mg 24 hr tablet Take 1 tablet by mouth every afternoon. cholecalciferol, vitamin D3, 10 mcg (400 unit) cap Take by mouth as directed. Hahjacn-Fkxivbrazrnzi-Fmvxvznv (EXCEDRIN) 250-250-65 mg per tablet Take 1 tablet by mouth every 6 hours as needed. citalopram (CELEXA) 40 mg tablet Take 40 mg by mouth once daily. omeprazole (PRILOSEC) 40 mg capsule Take 40 mg by mouth once daily. FAMILY HISTORY Problem Relation Age of Onset Diabetes Unknown Heart Unknown Lipids Unknown Cancer Maternal Aunt Breast Cancer Maternal Aunt Cancer Maternal Aunt Social History Tobacco Use Smoking status: Every Day Packs/day: 1 Types: Cigarettes Smokeless tobacco: Never Substance Use Topics Alcohol use: Yes Comment: Infrequent. 5-10 per year. BP 122/80 Pulse 98 Temp 36.6 ?C (97.8 ?F) Resp 16 Wt (!) 185 kg (407 lb 13.6 oz) LMP 04/03/2015 (Approximate) SpO2 96% Review of Systems Constitutional: Negative for chills, fever and malaise/fatigue. HENT: Negative for congestion, ear discharge, ear pain, sinus pain and sore throat. Eyes: Negative for blurred vision, pain, discharge and redness. Respiratory: Negative for cough, hemoptysis, sputum production, shortness of breath, wheezing and stridor. Cardiovascular: Negative for chest pain. Gastrointestinal: Negative for abdominal pain, diarrhea, nausea and vomiting. Musculoskeletal: Positive for back pain and joint pain. Negative for falls, myalgias and neck pain. Skin: Negative for itching and rash. Neurological: Negative for dizziness and headaches. Objective Physical Exam Constitutional: General: She is not in acute distress. Appearance: She is not toxic-appearing. HENT: Head: Normocephalic. Nose: Nose normal. Eyes: Pupils: Pupils are equal, round, and reactive to light. Cardiovascular: Rate and Rhythm: Normal rate. Pulmonary: Effort: Pulmonary effort is normal. No respiratory distress. Musculoskeletal: Hands: Cervical back: Normal range of motion. Back: Comments: Unable to extend DIP joint highlighted area third digit. No erythema edema. Neurovascular intact. No pain with palpation to PIP or MCP joint. Hand unremarkable. Palpation highlighted area. No erythema edema. No spinal tenderness. Skin: General: Skin is warm and dry. Neurological: General: No focal deficit present. Mental Status: She is alert. ASSESSMENT/PLAN: 1. Pain of finger of right hand - ICD9: 729.5, ICD10: M79.644 (primary diagnosis) - XR DIGIT GENERAL 3V FRONTAL/LAT/OBL RIGHT 2. Acute right-sided low back pain without sciatica - ICD9: 724.2, ICD10: M54.50 FINDINGS: Tiny accessory bone versus age-indeterminate tiny avulsion fracture along the volar aspect of the DIP joint. There is a tiny accessory bone along the volar aspect of the PIP joint. The joint spaces are well preserved. The mineralization of the bones is normal. There is appears to be soft tissue swelling. Diagnosed with back pain. Treat with prednisone taper. No NSAIDs. Recommended physical therapy. Distantly diagnosed with finger pain. Possible avulsion fracture along the DIP joint. Patient was placed in a finger splint. Placed in hyperextension. Neurovascular check. No abnormal findings. Following up with Ortho on Friday. Patient was educated on supportive therapies. Patient will follow up with primary care provider as needed. Patient was instructed to immediately proceed to emergency room for any new, worsening, or symptoms lasting longer than anticipated. The patient's clinical presentation is otherwise unremarkable at this time. Based on exam and clinical finding, the patient is stable for (more content not included)... [facility] 03-02-2024 History of Present illness Narrative Images from the original note were not included. Subjective HPI Nontoxic-appearing female presents urgent care chief complaint finger pain and back pain. Finger pain started this morning. Unable to fully extend DIP joint of right third digit. No known trauma. States area is sore if she pushes over it. Initially has had back pain for 3 to 4 weeks. History of back pain this is similar. No known injuries. No saddle anesthesia or incontinence. No traumatic injuries. No radiculopathy. Denies any fever body aches chills productive cough chest pain shortness of breath pleuritic pain hemoptysis nausea vomiting abdominal pain change in bowel or bladder habits. Past medical history prescription medication use and allergies reviewed. Denies chance of . .Patient presents with: Finger Pain: right middle finger unable to straighten x this am, lower back pain x few weeks History reviewed. No pertinent past medical history. PAST SURGICAL HISTORY Procedure Laterality Date ECISION OF LINGUAL TONSIL ~ age 8. MYRINGOTOMY ASPIR&/EUSTACHIAN TUBE NFLTJ ANES Myringotomy/tubes ALLERGIES Latex MEDICATIONS buPROPion XL (WELLBUTRIN XL) 150 mg 24 hr tablet Take 1 tablet by mouth every afternoon. cholecalciferol, vitamin D3, 10 mcg (400 unit) cap Take by mouth as directed. Bimtbjt-Gaphlvijlxxug-Pjrtjwjn (EXCEDRIN) 250-250-65 mg per tablet Take 1 tablet by mouth every 6 hours as needed. citalopram (CELEXA) 40 mg tablet Take 40 mg by mouth once daily. omeprazole (PRILOSEC) 40 mg capsule Take 40 mg by mouth once daily. FAMILY HISTORY Problem Relation Age of Onset Diabetes Unknown Heart Unknown Lipids Unknown Cancer Maternal Aunt Breast Cancer Maternal Aunt Cancer Maternal Aunt Social History Tobacco Use Smoking status: Every Day Packs/day: 1 Types: Cigarettes Smokeless tobacco: Never Substance Use Topics Alcohol use: Yes Comment: Infrequent. 5-10 per year. BP 122/80 Pulse 98 Temp 36.6 C (97.8 F) Resp 16 Wt (!) 185 kg (407 lb 13.6 oz) LMP 04/03/2015 (Approximate) SpO2 96% Review of Systems Constitutional: Negative for chills, fever and malaise/fatigue. HENT: Negative for congestion, ear discharge, ear pain, sinus pain and sore throat. Eyes: Negative for blurred vision, pain, discharge and redness. Respiratory: Negative for cough, hemoptysis, sputum production, shortness of breath, wheezing and stridor. Cardiovascular: Negative for chest pain. Gastrointestinal: Negative for abdominal pain, diarrhea, nausea and vomiting. Musculoskeletal: Positive for back pain and joint pain. Negative for falls, myalgias and neck pain. Skin: Negative for itching and rash. Neurological: Negative for dizziness and headaches. Objective Physical Exam Constitutional: General: She is not in acute distress. Appearance: She is not toxic-appearing. HENT: Head: Normocephalic. Nose: Nose normal. Eyes: Pupils: Pupils are equal, round, and reactive to light. Cardiovascular: Rate and Rhythm: Normal rate. Pulmonary: Effort: Pulmonary effort is normal. No respiratory distress. Musculoskeletal: Hands: Cervical back: Normal range of motion. Back: Comments: Unable to extend DIP joint highlighted area third digit. No erythema edema. Neurovascular intact. No pain with palpation to PIP or MCP joint. Hand unremarkable. Palpation highlighted area. No erythema edema. No spinal tenderness. Skin: General: Skin is warm and dry. Neurological: General: No focal deficit present. Mental Status: She is alert. ASSESSMENT/PLAN: 1. Pain of finger of right hand - ICD9: 729.5, ICD10: M79.644 (primary diagnosis) - XR DIGIT GENERAL 3V FRONTAL/LAT/OBL RIGHT 2. Acute right-sided low back pain without sciatica - ICD9: 724.2, ICD10: M54.50 FINDINGS: Tiny accessory bone versus age-indeterminate tiny avulsion fracture along the volar aspect of the DIP joint. There is a tiny accessory bone along the volar aspect of the PIP joint. The joint spaces are well preserved. The mineralization of the bones is normal. There is appears to be soft tissue swelling. Diagnosed with back pain. Treat with prednisone taper. No NSAIDs. Recommended physical therapy. Distantly diagnosed with finger pain. Possible avulsion fracture along the DIP joint. Patient was placed in a finger splint. Placed in hyperextension. Neurovascular check. No abnormal findings. Following up with Ortho on Friday. Patient was educated on supportive therapies. Patient will follow up with primary care provider as needed. Patient was instructed to immediately proceed to emergency room for any new, worsening, or symptoms lasting longer than anticipated. The patient's clinical presentation is otherwise unremarkable at this time. Based on exam and clinical finding, the patient is stable for discharge. Plan of care was discussed with patient. Patient verbalizes understanding and agrees to plan of care. This note was generated using [employer] software. It may contain errors in wording, punctuation, or spelling. Vijay Smith APRN.SUPERVISOR [employer] documented in this encounter [facility] 09-09-2021 Hospital Discharge instructions Patient Education 09/09/2021 14:23:25 URI, Viral, No Abx (Adult) Viral Upper Respiratory Illness (Adult) You have a viral upper respiratory illness (URI), which is another term for the common cold. This illness is contagious during the first few days. It is spread through the air by coughing and sneezing. It may also be spread by direct contact (touching the sick person and then touching your own eyes, nose, or mouth). Frequent handwashing will decrease risk of spread. Most viral illnesses go away within 7 to 10 days with rest and simple home remedies. Sometimes the illness may last for several weeks. Antibiotics will not kill a virus, and they are generally not prescribed for this condition. Home care If symptoms are severe, rest at home for the first 2 to 3 days. When you resume activity, don't let yourself get too tired. Don't smoke. If you need help stopping, talk with your healthcare provider. Avoid being exposed to cigarette smoke (yours or others ). You may use acetaminophen or ibuprofen to control pain and fever, unless another medicine was prescribed. If you have chronic liver or kidney disease, have ever had a stomach ulcer or gastrointestinal bleeding, or are taking blood-thinning medicines, talk with your healthcare provider before using these medicines. Aspirin should never be given to anyone under 18 years of age who is ill with a viral infection or fever. It may cause severe liver or brain damage. Your appetite may be poor, so a light diet is fine. Stay well hydrated by drinking 6 to 8 glasses of fluids per day (water, soft drinks, juices, tea, or soup). Extra fluids will help loosen secretions in the nose and lungs. Nkis-bfj-dsrfolj cold medicines will not shorten the length of time you re sick, but they may be helpful for the following symptoms: cough, sore throat, and nasal and sinus congestion. If you take prescription medicines, ask your healthcare provider or pharmacist which mlrb-aej-csfbjhg medicines are safe to use. (Note: Don't use decongestants if you have high blood pressure.) Follow-up care Follow up with your healthcare provider, or as advised. When to seek medical advice Call your healthcare provider right away if any of these occur: Cough with lots of colored sputum (mucus) Severe headache; face, neck, or ear pain Difficulty swallowing due to throat pain Fever of 100.4 F (38 C) or higher, or as directed by your healthcare provider Call 911 Call 911 if any of these occur: Chest pain, shortness of breath, wheezing, or difficulty breathing Coughing up blood Very severe pain with swallowing, especially if it goes along with a muffled voice [phone] [employer]. [address] [place] [address]. All rights reserved. This information is not intended as a substitute for professional medical care. Always follow your healthcare professional's instructions. Follow Up Care 09/09/2021 12:32:47 With:ABHINAV MURRY DO Address: [address] [place] [address] [place] [address]- [phone] When:2-4 days [facility] 09-26-2020 Evaluation + Plan note Future Scheduled TestsXR Foot Minimum 3 Views Left 09/26/20XR Ankle Minimum 3 Views Left 09/26/20XR Knee 3 Views Right 12/26/20 [facility] Discharge summary Note Date/Time February 03, 2023 12:36am [facility] Medical Records Department [address] [place] [address] Emergency Department Summary 02/03/23 MR#: [id number] Acct: [id number] Name: MARY TOTH Rep #:[id number] : 1985 37 From: Jeevan Mon MD PCP: Dr. Abhinav Murry, DO Status: REG ER Location: ED HPI HPI - Fall History of Present Illness Chief Complaint: Fall Informant: patient Occured/Mechanism Occurred: Yesterday Mechanism/Context: Yes slip Narrative: States she slipped on water at [facility] falling to the floor, she thinks on her left side. Pain/Injury Location: Right upper arm, left low back Quality of Pain: Aching Current Severity: Mild Maximum Severity: Moderate Worsened by: Movement, walking Relieved by: Rest and remaining still Associated Symptoms Associated Symptoms: Negative for Parasthesias, Weakness, Loss of function, Inability to ambulate, Loss of consciousness or Amnesia Narrative Narrative: Patient presents 24 hours or so after she had a fall at [facility]. She has persistent pain and presents to be evaluated. She states her right upper arm hurts when she abducts at the shoulder and she does not have pain in the shoulder. She also has pain in her left low back that is radiating all the waydown the left leg and this is something new since the fall that she did not have prior to this. No other injuries reported, except she states her left upper extremity is a little sore throughout, in her left knee is a little sore when she walks on it. [facility] Medical History Depression GERD (gastroesophageal reflux disease) Home Medications omeprazole 40 mg capsule,delayed release 40 mg PO DAILY 10/07/18 [History Last Taken Unknown] citalopram 40 mg tablet 40 mg PO DAILY 02/03/23 [History Last Taken Unknown] ibuprofen 600 mg tablet 600 mg PO Q8H PRN PRN pain #20 TABLETS 02/03/23 [Rx Last Taken Unknown] Allergy/AdvReac Type Severity Reaction Status Date / Time No Known Allergies Allergy Verified 07/03/22 11:34 Surgical History (Updated 07/03/22 @ 12:[address] Quintin Rodríguez, DO) History of surgical removal of ganglion cyst Hx of tonsillectomy Social History Smoking Status: Current every day smoker tobacco type: cigarettes substance use type: does not use ROS ROS ED Constitutional Constitutional ED: Denies chills or fever(s) Eyes Eyes: Denies change in vision or diplopia Cardiovascular Cardiovascular: Denies chest pain Gastrointestinal Gastrointestinal: Denies abdominal pain or vomiting Genitourinary Genitourinary ED: Denies hematuria Musculoskeletal Musculoskeletal: Reports back pain and extremity pain; Denies neck pain Integumentary Denies Abrasions, rash or wounds Neurologic Neurologic: Denies headache(s), paresthesias or weakness EXAM Physical Exam Const Vital Signs: 02/03/23 00:12 02/03/23 01:03 Temperature 97.7 F L Temperature Source Temporal Pulse Rate 94 Respiratory Rate 18 Respiratory Effort Normal Non-Labored Respiratory Depth Normal Respiratory Pattern Normal Blood Pressure 139/81 H Blood Pressure Mean 100 Pulse Ox 99 Oxygen Delivery Method Room Air Room Air Positive well nourished, well developed and obese General Appearance ED: well developed and NAD Nutritional Appearance: obese HEENT Reports normocephalic atraumatic Eyes PERRL and EOMs intact bilaterally Neck full ROM and supple Chest Wall inspection of chest normal and palpation of chest normal Resp normal respiratory effort and clear to auscultation bilaterally Back/Spine normal ROM and normal to inspection Back/Spine Narrative: Mild midline lumbar tenderness L4-L5 area. No palpable step-off but exam limited by morbid obesity. Also tender in the left SI joint area without crepitance or deformity. Negative straight leg raises bilaterally. Extremity Extremity Narrative: Full range of motion throughout all 4 extremities including the right upper. Mild tenderness in the area of the biceps, and only has pain when she abducts atthe shoulder. No proximal humeral or shoulder girdle/clavicular tenderness. Painless internal/external range of motion. With palpating the humerus proper posteriorly, there is no tenderness throughout the bone from shoulder to elbow. No other areas of bony tenderness throughout all 4 extremities or limitations. Exam is limited in the lower extremities due to severe symmetric chronic-appearing lymphedema. Full range of motion. Neuro oriented x3, no focal motor deficits and no sensory deficits noted Sensorium / Orientation: alert Psych mental status grossly normal and thought process normal Skin no wounds Rashes: no rashes MDM MDM MDM Narrative Medical decision making narrative: The right upper arm exam is extremely benign as is the left knee. There is no bony tenderness, and as I discussed with the patient, I am at such a low suspicion for any actual bony injury that I do not think x-rays are needed. Sheis in agreement with that assessment. I do think it is reasonable to obtain x-rays of her lumbar spine, and she is agreeable to that. 2-3 views of my interpretation negative for any acute fracture, which I was at a low suspicion for as well but this was the only area where she had bony tenderness. Patient reassured, likely contusion and/or strain/sprain, supportive care advised will offer prescription for NSAIDs. Radiography Diagnostic Testing: Clinical Impression(s) from Imaging Studies Lumbar Spine X-Ray 02/03/23 00:50 IMPRESSION: 1. No acute injuries identified involving the lumbar spine. 2. Degenerative changes. Electronically Signed: Kelton Elizondo MD at 1:13 EDT , Discharge Plan Triage Chief Complaint: Fall ED Provider: Jeevan Mon Dx/Rx/DC Orders Clinical Impression: Acute lumbosacral myofascial strain, Strain of right biceps, Contusion of buttock, Fall from slipping on wet surface Instructions: Self-Care for Strains and Sprains Prescriptions: Continued omeprazole 40 MG capsule,delayed release(DR/EC) 40 mg PO DAILY citalopram 40 mg tablet 40 mg PO DAILY Label Comments: TAKE 1 TABLET BY MOUTH ONCE DAILY ibuprofen 600 mg tablet 600 mg PO Q8H PRN PRN (Reason: pain) Qty: 20 0RF Primary Care Provider: Abhinav Murry Referrals: Abhinav Murry, [Primary Care Provider] - 1 Week if not improving Disposition Disposition: Home, Self Care What to do if you have Problems For any increased pain, shortness of breath, bleeding, nausea or vomiting, chestpain, or any unexpected problems, contact your Primary Care Provider. Call [facility] ([phone]) or report to the closest Emergency Room. Call 911 if necessary. 02/03/23 0129 <Electronically signed by Jeevan Mon MD> Ronyigner Signature (if applicable): CC: Dr. Abhinav Murry DO ~ Signed [facility] Work Phone: Discharge summary Author Milad Lynn [facility] August 17, 2023 9:05am Note Date/Time August 17, 2023 9:05am [facility] Medical Records Department [address] [place] [address] Emergency Department Summary 08/17/23 MR#: [id number] Acct: [id number] Name: MARY TOTH Rep #:[id number] : 1985 38 From: Milad Lynn DO PCP: Dr. Abhinav Murry DO Status: PRE ER Location: ED HPI History of Present Illness Chief Complaint: Back Narrative Narrative: -year-old female presenting with left lower back pain. Patient states this started about a week ago. Patient denies any trauma. No loss of bladder or bowel control, saddle anesthesia, paresthesia. Patient states that she has beentrying NSAIDs ykwt-ukt-zbmghwz without much relief. She has been doing hzil-nja-tlcworr patches which does help initially but then the relief wears off. [facility] Medical History Depression GERD (gastroesophageal reflux disease) Home Medications omeprazole 40 mg capsule,delayed release 40 mg PO DAILY 10/07/18 [History Last Taken Unknown] citalopram 40 mg tablet 40 mg PO DAILY 02/03/23 [History Last Taken Unknown] ibuprofen 600 mg tablet 600 mg PO Q8H PRN PRN pain #20 TABLETS 02/03/23 [Rx Last Taken Unknown] cholecalciferol (vitamin D3) 125 mcg (5,000 unit) tablet (Vitamin D3) 1 unit PO DAILY 02/06/23 [History Last Taken Unknown] hydrocodone-acetaminophen 5-325mg 5mg-325mg 1 tab PO Q6H PRN PRN Pain 3 days #10TABLETS 02/16/23 [Rx Last Taken Unknown] prednisone 20 mg tablet 60 mg (3 x 20 mg) PO DAILY #12 TABLETS 02/16/23 [Rx Last Taken Unknown] naproxen 500 mg tablet 500 mg PO BID #30 tabs 08/17/23 [Rx Last Taken Unknown] prednisone 50 mg tablet 50 mg PO DAILY #3 tabs 08/17/23 [Rx Last Taken Unknown] tizanidine 4 mg tablet 4 mg PO Q8H PRN muscle spasticity #20 tabs 08/17/23 [Rx Last Taken Unknown] Allergy/AdvReac Type Severity Reaction Status Date / Time No Known Allergies Allergy Verified 02/16/23 18:50 Surgical History History of surgical removal of ganglion cyst Hx of tonsillectomy Social History Smoking Status: Current every day smoker tobacco type: cigarettes substance use type: does not use ROS ROS ED Constitutional Constitutional ED: Denies chills, fever(s) or sweats Eyes Eyes: Denies blurry vision or change in vision ENT ENT ED: Denies ear pain or sore throat Cardiovascular Cardiovascular: Denies chest pain, palpitations or racing heartbeat Respiratory/Chest Respiratory/Chest: Denies cough, dyspnea or sputum Gastrointestinal Gastrointestinal: Denies abdominal pain, constipation, diarrhea, nausea or vomiting Genitourinary Genitourinary ED: Denies dysuria, hematuria or urinary frequency Musculoskeletal Musculoskeletal: Reports back pain; Denies arthralgias, myalgias or neck pain Integumentary Denies abscess, Abrasions or rash Neurologic Neurologic: Denies headache(s), paresthesias or weakness Psychiatric Psychiatric: Denies anxiety, depression, suicidal ideation or suicidal thoughts Endocrine Endocrinology: Denies polydipsia or polyuria EXAM Physical Exam Const Vital Signs: 08/17/23 08:23 Temperature 96.9 F L Temperature Source Temporal Pulse Rate 72 Respiratory Rate 16 Blood Pressure 157/82 H Blood Pressure Mean 107 Pulse Ox 98 Oxygen Delivery Method Room Air Positive well nourished General Appearance ED: NAD HEENT Reports moist mucous membranes Eyes PERRL and EOMs intact bilaterally Neck no lymphadenopathy Resp normal respiratory effort Cardio regular rate and regular rhythm Back/Spine Back/Spine Narrative: Palpation left lumbar paraspinal musculature. No midline spinal deformity, step- off, tenderness. No CVA tenderness. Extremity normal to inspection Neuro oriented x3 and no sensory deficits noted Sensorium / Orientation: alert Motor Exam: strength 5/5 throughout Psych mental status grossly normal Skin no rashes or lesions noted MDM MDM MDM Narrative Medical decision making narrative: Patient presenting with nontraumatic left lower back pain. She is tender on exam in this region. No midline spinal tenderness, deformity, step-off. No concern for infectious discitis, cauda equina syndrome. Patient is driving today so we discussed getting her muscle relaxers as a prescription. I will puther on a couple days of prednisone and she is also given option to take when herprednisone is finished. She is given stretching exercises and return precautions. Impression 1. Lumbar strain Lab Data Attestation: I reviewed the patient's lab results. Discharge Plan Triage Chief Complaint: Back ED Provider: Milad Lynn Dx/Rx/DC Orders Instructions: ED Back Spasm, No Trauma Prescriptions: New prednisone 50 mg tablet 50 mg PO DAILY Qty: 3 0RF tizanidine 4 mg tablet 4 mg PO Q8H PRN (Reason: muscle spasticity) Qty: 20 0RF naproxen 500 mg tablet 500 mg PO BID Qty: 30 0RF No Action omeprazole 40 MG capsule,delayed release(DR/EC) 40 mg PO DAILY citalopram 40 mg tablet 40 mg PO DAILY Patient Comments: TAKE 1 TABLET BY MOUTH ONCE DAILY ibuprofen 600 mg tablet 600 mg PO Q8H PRN PRN (Reason: pain) Qty: 20 0RF cholecalciferol (vitamin D3) [Vitamin D3] 125 mcg (5,000 unit) Tablet 1 unit PO DAILY Rx Instructions: 89194 IU DAILY hydrocodone-acetaminophen [hydrocodone-acetaminophen] 5-325 mg tablet 1 tab PO Q6H PRN PRN (Reason: Pain) 3 Days Qty: 10 0RF prednisone 20 mg tablet 60 mg PO DAILY Qty: 12 0RF Primary Care Provider: Abhinav Murry Referrals: Abhinav Murry, [Primary Care Provider] - Disposition Disposition: Home, Self Care What to do if you have Problems For any increased pain, shortness of breath, bleeding, nausea or vomiting, chestpain, or any unexpected problems, contact your Primary Care Provider. Call [facility] ([phone]) or report to the closest Emergency Room. Call 911 if necessary. 08/17/23904 <Electronically signed by Milad Lynn DO> Cosigner Signature (if applicable): CC: Dr. Abhinav Murry DO ~ Signed [facility] Work Phone: Evaluation + Plan note Future Appointments Appointment Date:08/02/2021 10:40:00 AM Scheduled Provider:ABHINAV MURRY DO Location:[facility] Appointment Type:PC OV Future Scheduled Tests Radiology* XR Foot Minimum 3 Views Left 09/26/20 * XR Ankle Minimum 3 Views Left 09/26/20 * XR Knee 3 Views Right 12/26/20 [facility] Evaluation noteNo assessment information available [facility] Work Phone: Evaluation note* Diagnosis Pain of finger of right hand- Primary Pain in limb Acute right-sided low back pain without sciatica Pain of finger of right hand Pain in limb [facility] Diagnosis Pain of finger of right hand Pain in limb [facility]* Diagnosis Sore throat- Primary Acute pharyngitis Oral thrush Candidiasis of mouth [facility] Diagnosis Foreign body in vagina, initial encounter- [facility] N[facility] No data available for this section [facility] Hospital Discharge instructions No data available for this section [facility] Reason for referral (narrative)* Diagnostic Procedure Only (Urgent) - Closed Specialty Diagnoses / Procedures Referred By Contac t Referred To Contact XR IMAGING Diagnoses Pain of finger of right hand Procedures XR DIGIT GENERAL 3V FRONTAL/LAT/OBL RIGHT RADEX FINGR MINIMUM 2 VIEWS Vijay Smith, UBALDO.SUPERVISOR BLAST FURNA[employer] [address] [place] [address] [place] [address] Referral ID Status Reason Start Date Expiration Date V isits Requested Visits Authorized [id number] Closed Auto-Generate d Referral 03/02/2024 04/01/2025 1 [facility] Diagnostic Procedure Only (Urgent) - Closed Specialty Diagnoses / Procedures Referred By Gabe medina Referred To Contact XR IMAGING Diagnoses Pain of finger of right hand Procedures XR DIGIT GENERAL 3V FRONTAL/LAT/OBL RIGHT RADEX FINGR MINIMUM 2 VIEWS Vijay Smith APRN.CNP [address] [place] [address] [place] [address] Referral ID Status Reason Start Date Expiration Date V isits Requested Visits Authorized [id number] Closed Auto-Generate d Referral 03/02/2024 04/01/2025 1 1 [facility] Assessments Diagnosis Acute left ankle pain - Prim ana maria Left shoulder pain, unspecif ied chronicity Left hand pain Pain in soft tissues of limb Numbness of right hand Acute midline low back pain without sciatica Summary Purpose Family History No Family History Records FoundNo Family History Records FoundNo Family History Records FoundNo Family History Records FoundNo Family History Records FoundNo Family History Records FoundNo Family History Records Found Advance Directives No Advanced Directives Records Found Advance Directive Response Recorded Date/ Time Living Will No March 07, 2022 3:48pm Power of Station Baggage Porter No March 07 3:48pm Advance Directive Response Recorded Date/ Time Living Will No July 03 12:12pm Power of Station Baggage Porter No July 03, 2022 12:12pm Advance Directive Response Recorded Date/ Time Living Will No February 03, 2023 1 :01am Power of Station Baggage Porter No February 03, 2023 1:01am Advance Directive Response Recorded Date/ Time Living Will No February 16, 2023 6 :58pm Power of Station Baggage Porter No February 16, 2023 6:58pm Advance Directive Response Recorded Date/ Time Living Will No August 17, 023 9:14am Power of Station Baggage Porter No August 17, 2023 9:14am Chief Complaint and Reason for Visit Chief Complaint LOWER Chief Complaint LOWER CP Chief Complaint fall Chief Complaint fall SI BACK PAIN Chief Complaint Back pain Reason for Referral Specialty Diagnoses / Procedures Referred By Gabe medina Referred To Contact Orthopedics Diagnoses Pain of finger of right hand Procedures CONSULT TO ORTHOPAEDICS OFFICE/OUTPATIENT [facility] MDM 60 MINUTES Vijay Smith APRN.SUPERVISOR [employer] [address] [place] [address] Referral ID Status Reason Start Date Expiration Date Visits Requested Visits Authorized [id number] Authorized PCP Requested Referral 03/02/2024 03/02/2025 1 1 Specialty Diagnoses / Procedures Referred By Contac t Referred To Contact XR IMAGING Diagnoses Pain of finger of right hand Procedures XR DIGIT GENERAL 3V FRONTAL/LAT/OBL RIGHT RADEX FINGR MINIMUM 2 VIEWS Vijay Smith APRN.SUPERVISOR [employer] [address] [place] [address] [place] [address] Referral ID Status Reason Start Date Expiration Date V isits Requested Visits Authorized [id number] Closed Auto-Generate d Referral 03/02/2024 04/01/2025 1 1 Additional Source Comments INFORMATION SOURCE (unrecogn ized section and content) DATE CREATED AUTHOR 03/17/2018 [facility] DATE CREATED AUTHOR AUTHOR'S ORGANIZ ATION 03/17/2018 [facility] DATE CREATED AUTHOR AUTHOR'S ORGANIZ ATION 07/24/2022 [facility] DATE CREATED AUTHOR AUTHOR'S ORGANIZ ATION 08/03/2022 [facility] ([place]) DATE CREATED AUTHOR AUTHOR'S ORGANIZ ATION 11/18/2024 [facility] DATE CREATED AUTHOR AUTHOR'S ORGANIZ ATION 01/16/2025 [facility] DATE CREATED AUTHOR AUTHOR'S ORGANIZ ATION 03/05/2025 [facility] Care Teams (unrecognized sec tion and content) Gel Coater Relationship Specialty Start Date End Date Abhinav Murry DO [address] [place] [id number] PCP - General 04/06/21 Gel Coater Relationship Specialty Start Date End Date Abhinav uMrry DO [address] [place] [id number] PCP - General 04/06/21 Team Status: Active Member Role Status Dates Dr. Abhinav Murry , DO Family Provider Active Dr. Abhinav Murry , DO Primary Care Provider Activ e Team Status: Inactive Member Role Status Dates Dr. Abhinav Murry , DO Primary Care Provider Activ e Dr. Jeevan Mon MD Emergency Provider Active Team Status: Inactive Member Role Status Dates Dr. Abhinav Murry , DO Primary Care Provider Activ e Dr. Jeevan Mon MD Attending Provider, Emergency Provider Active Team Status: Inactive Member Role Status Dates Dr. Abhinav Murry , DO Primary Care Provider Activ e Dr. Milad Lynn , DO Attending Provider, Emergency Provider Active Team Status: Inactive Member Role Status Dates Dr. Abhinav Murry , DO Primary Care Provider Activ e Dr. Quintin Rodríguez , DO Emergency Provider Active Team Status: Inactive Member Role Status Dates Dr. Abhinav Murry , DO Primary Care Provider Activ e Dr. Milad Lynn , DO Emergency Provider Active Team Status: Inactive Member Role Status Dates Dr. Abhinav Murry , DO Primary Care Provider, Attending Provider, Referring Provider Active Gel Coater Relationship Specialty Start Date End Date Abhinav Murry DO [address] [place] [phone] PCP - General Family Medicine 03/02/24 Gel Coater Relationship Specialty Start Date End Date Abhinav Murry DO [address] [place] [id number] PCP - General Family Medicine 03/02/24 Gel Coater Relationship Specialty Start Date End Date Abhinav Murry DO [address] [place] [id number] PCP - General Family Medicine 03/02/24 Gel Coater Relationship Specialty Start Date End Date Abhinav Murry DO [address] [place] [phone] PCP - General Family Medicine 03/02/24 Goals (unrecognized section and content) Goals may be documented in a n alternate section Source Comments (unrecognize d section and content) In the event this informatio n is protected by the Federal Confidentiality of Alcohol and Drug Abuse Patient Records regulations: The Federal rules restrict any use of the information to criminally investigate or prosecute any alcohol or drug abuse patient.[facility] the event this information is protected by the Federal Confidentiality of Alcohol and Drug Abuse Patient Records regulations: The Federal rules restrict any use of the information to criminally investigate or prosecute any alcohol or drug abuse patient.[facility] the event this information is protected by the Federal Confidentiality of Alcohol and Drug Abuse Patient Records regulations: The Federal rules restrict any use of the information to criminally investigate or prosecute any alcohol or drug abuse patient.[facility] the event this information is protected by the Federal Confidentiality of Alcohol and Drug Abuse Patient Records regulations: The Federal rules restrict any use of the information to criminally investigate or prosecute any alcohol or drug abuse patient.[facility] Reason for Visit (unrecogniz ed section and content) Reason Comments Finger Pain right middle finger unable to straighten x this am, lower back pain x few weeks Reason Comments Sore Throat ST, sore tongue and trouble swallowing x 1 day Reason Comments Vaginal Problem Tampon stuck x sever al days FOR RECORDS PERTAINING TO PATIENTS WHO ARE OR HAVE BEEN ENROLLED IN A CHEMICAL DEPENDENCY/SUBSTANCEABUSE PROGRAM, SOME INFORMATION MAY BE OMITTED. This clinical summary was aggregated from multiple sources. Caution should be exercised in using it in the provision of clinical care. This summary normalizes information from multiple sources, and as a consequence, information in this document may materially change the coding, format and clinical context of patient data. In addition, data may be omitted in some cases. CLINICAL DECISIONS SHOULD BE BASED ON THE PRIMARY CLINICAL RECORDS. [employer] [facility]. provides no warranty or guarantee of the accuracy or completeness of information in this document.
== END | disposition home or self-care (01) ==
LOC: LAB 10:18
DX: Z00.00 Encounter for general adult medical examination without abnormal findings (principal); R73.9 Hyperglycemia, unspecified; K21.9 Gastro-esophageal reflux disease without esophagitis; E55.9 Vitamin D deficiency, unspecified
CPT/HCPCS: 36415; 80053; 82306; 83036; 84443; 85027

== ENCOUNTER → 2025-07-07 | Outpatient (CLI) | payer MEDICAID, SELFPAY ==
[2025-07-07 12:19] LABS: Hematocrit 43.0 % (37-47); Hemoglobin 14.1 g/dL (12.0-15.0); Immature Granulocytes Count 0.000 X10^3/uL (0.0-0.0); Mean Corp Hgb Conc 32.8 g/dL (32-36); Mean Corpuscular Volume 90.5 fL (81-99); Mean Platelet Vol. 11.2 fl (6.2-12.0); NRBC Flagged by Analyzer 0 % (0-5); Platelet Count 218 K/mm3 (150-450); RBC Distribution Width CV 14.6 % (11.6-14.6); RBC Distribution Width SD 48.5 fl (35.1-43.9); Red Blood Count 4.75 M/mm3 (4.2-5.4); White Blood Count 4.5 K/mm3 (4.4-11.0)
[2025-07-07 13:47] LABS: AST(SGOT) 20 U/L (<=31); Alanine Aminotransfer ALT/SGPT 24 U/L (<=34); Albumin, Serum 3.9 g/dL (3.5-5.0); Alkaline Phosphatase 111 U/L (35-104); Anion Gap 9 (5-15); BUN 8 mg/dL (4-19); BUN/Creat Ratio 11.2 RATIO (10-20); Calcium,Total 9.1 mg/dL (7.6-11.0); Carbon Dioxide 25.1 mmol/L (21.0-32.0); Chloride 106 mmol/L (98-108); Globulin 2.4 g/dL (2.2-4.2); Glucose 97 mg/dL (70-99); Potassium 4.1 mmol/L (3.3-5.1)
[2025-07-08 18:08] LABS: Immunoglobulin A 122 mg/dL (87-352)
== END | disposition home or self-care (01) ==
LOC: LAB 11:42
PROVIDERS: Referring Provider Student in an Organized Health Care Education/Training Program; Visit Provider Student in an Organized Health Care Education/Training Program
DX: R19.7 Diarrhea, unspecified (principal)
CPT/HCPCS: 36415; 80053; 82784; 83516; 85025; 86255

== ENCOUNTER → 2025-07-08 | Outpatient (CLI) | payer MEDICAID, SELFPAY ==
[2025-07-12 08:09] LABS: Calprotectin, Stool 15 ug/g (0-120)
== END | disposition home or self-care (01) ==
LOC: LABSPEC 12:36
PROVIDERS: Referring Provider Student in an Organized Health Care Education/Training Program; Visit Provider Student in an Organized Health Care Education/Training Program
DX: R19.7 Diarrhea, unspecified (principal)
CPT/HCPCS: 83993

== ENCOUNTER 2025-08-02 11:23 | Day surgery (SDC) | payer MEDICAID, SELFPAY ==
[2025-08-02] VITALS (7 sets, daily range): BP systolic 129–144; BP diastolic 76–94; PULSE 63–82; RESP 16–18; TEMP 36.1–36.2; O2SAT 1–100; BMI 46.2
[2025-08-02 11:45] LABS: Internal QC Validated? YES +Cl - CLEAR BKGD; Pregnancy, Urine Negative Negative; Record Kit Lot#,Urine Preg 980607
[2025-08-02] MEDS: Lactated Ringers 1,000 ML 15 ML IV (11:53)
--- NOTE | 2025-08-02 12:25 | PCM.PRE.AN2 ---
ASA Classification* ASA Classification ASA Classification: 3 (BMI > 40. Smoker, GERD) Assessment & Plan Anesthesia* Anesthesia Assessment Anesthesia Assessment: Discussed sedation and/or anesthesia options, risks, benefits, and alternatives with patient/parents/legal guardian/POA. Questions invited. The patient/parents/legal guardian/POA seems to understand and agrees to proceed with anesthesia plan. Reviewed the physical assessment, medical history, allergy history and patient home medications list prior to surgery/procedure/anesthetic and documented any changes. Performed airway and anesthesia risk assessments. Anesthesia Type Anesthesia Type: MAC History Source History Obtained from:: Patient and Chart Anesthesia Focused Assessment* Temperature: 97.2 F Pulse Rate: 82 Blood Pressure: 144/94 Respiratory Rate: 18 Pulse Ox: 100 Oxygen Delivery Method: Room Air Airway Assessment Mouth opens: >3 cm Mallampati Score: IV Teeth Condition: Missing (Very poor dentition) Neck Range of motion (ROM): Full ROM Labs Anesthesia Preop lab: CBC WBC, (4.4-11.0) 4.5 K/mm3 07/07/25, 11:56 RBC, (4.2-5.4) 4.75 M/mm3 07/07/25, 11:56 Hgb, (12.0-15.0) 14.1 g/dL 07/07/25, 11:56 Hct, (37-47) 43.0 % 07/07/25, 11:56 Plt Count, (150-450) 218 K/mm3 07/07/25, 11:56 CHEMISTRY Potassium, (3.3-5.1) 4.1 mmol/L 07/07/25, 11:56 Sodium, (133-145) 140 mmol/L 07/07/25, 11:56 BUN, (4-19) 8 mg/dL 07/07/25, 11:56 Creatinine, (0.70-1.20) 0.72 mg/dL 07/07/25, 11:56 Glucose, (70-99) 97 mg/dL 07/07/25, 11:56 TSH, (0.300-4.200) 0.541 uIU/mL 03/14/25, 10:21 COAG Urine Test Negative Negative Today, 11:35 Pre-Assessment Diagnosis/Proposed Procedure Planned Operative Procedure(s): Colonoscopy,EGD Anesthesia History Anesthesia History - manager front office: Anesthesia History - manager front office Hx Hospitalization No 07/29/25 12:34 Any Problems With Anesthesia No 07/29/25 12:34 Cholinesterase deficiency No 07/29/25 12:34 You/Your Family Experience No 07/29/25 12:34 fever (hyperthermia) with Relationship Recent Exposure to Contagious No 08/02/25 11:42 Disease Does patient have nerve No 07/29/25 12:34 stimulator Patient instructed to have device shut off --Does patient have Pacemaker No 08/02/25 11:42 or ICD? When Was Last Pacemaker Check QUESTION #4 FULL TEXT: You/Your Family Experience fever (hyperthermia) with Anesthesia Last Oral Intake Last Oral intake: Last Oral Intake NPO since 00:00 08/02/25 11:42 Meds taken in AM with sips of No 08/02/25 11:42 water? Meds patient instructed to take am of surgery PONV PONV - manager front office: PONV - manager front office Female Yes 07/29/25 12:34 HX of Motion Sickness Yes 07/29/25 12:34 HX of N/V After Surgery No 07/29/25 12:34 Non-Smoker No 07/29/25 12:34 Duration of Surgery greater No 07/29/25 12:34 than 60 minutes Number of Risk Factors 2 07/29/25 12:34 PONV Score Moderate Risk 07/29/25 12:34 Height & Weight Height & Weight: Anesthesia: Height & Weight Height 5 ft 8 in 08/02/25 11:42 Weight: 137.9 kg 08/02/25 11:42 Body Mass Index (BMI) 46.2 08/02/25 11:42 Respiratory Assessment Respiratory Assessment - manager front office: Respiratory Tract Infection Hx - manager front office Hx Respiratory Tract Infection No 07/29/25 12:34 STOP Sleep Apnea STOP Sleep Apnea - manager front office: STOP Sleep Apnea - manager front office Hx Hypertension No 07/29/25 12:34 Hx Sleep Apnea No 07/29/25 12:34 CPAP BIPAP Do you snore loudly (louder No 07/29/25 12:34 than talking or can be heard Do you often feel tired/ No 07/29/25 12:34 fatigued/ sleepy during daytime? Has anyone observed you stop No 07/29/25 12:34 breathing during sleep? STOP Results Negative 07/29/25 12:34 QUESTION #5 FULL TEXT : Do you snore loudly (louder than talking or can be heard through closed doors)? Tobacco Use History Tobacco Use History - manager front office: Tobacco Use History - manager front office Tobacco Use Smoking Status Current some day smoker 07/29/25 12:34 Hx Tobacco Use Yes 07/29/25 12:34 Years Smoking 20 07/29/25 12:34 Packs Smoked per Day 1 07/29/25 12:34 Smoking Cessation Date was within the last 15 years Hx Smoking Cessation Date Hx Smoking Cessation No 07/29/25 12:34 Counseling Hematologic Medial History Hematologic Hx - manager front office: Hematologic Medical Hx - complaint evaluation officer Hx of Blood Transfusion No 07/29/25 12:34 Hx of Transfusion in last 3 No 07/29/25 12:34 Months Date of Last Transfusion (if within last 3 months) Ever experience any problems No 07/29/25 12:34 with transfusion(s)? Specify any problems Hx of Preganancy in last 3 No 07/29/25 12:34 Months Nurse Filling Out Transfusion JZOLLINGE 07/29/25 12:34 & Questions: Date: 07/29/25 07/29/25 12:34 Time: 12:36 07/29/25 12:34 Patient unable to answer at this time (ie. confused, unrespo /Reproduction History /Reproductive History - manager front office: /Reproductive Hx- manager front office Hx Now No 07/29/25 12:34 Gestational Age (in weeks): EDC: Hx Hx Para Hx Section SAB No 07/29/25 12:34 Does the father of the baby or his family experience fever w Father of the baby Malignant Hypertension history comment Active Medications Active Medications: Current Medications Generic Name Dose Route Start Last Admin Trade Name Freq PRN Reason Stop Dose Admin Lactated Ringer's 1,000 mls @ 15 mls/hr 08/02/25 11:30 08/02/25 11:53 IV 15 mls/hr .Q48H KWADWO Administration PFSH Medical History (Updated 07/29/25 @ 12:34 by Tania Suárez) Wears glasses Wears partial dentures Wears dentures Arthritis Easy bruising Restless legs Smoker Mixed incontinence Ganglion cyst Vitamin D deficiency Nicotine dependence Snoring Knee osteoarthritis Fatigue Hemorrhoid Low back pain Diarrhea Depression GERD (gastroesophageal reflux disease) Home Medications Medication Instructions Recorded Last Taken Type omeprazole 40 mg capsule,delayed 40 mg PO DAILY 10/07/18 11/05/24 History release citalopram 40 mg tablet 40 mg PO DAILY 02/03/23 11/05/24 History ibuprofen 600 mg tablet 600 mg PO Q8H PRN PRN pain #20 02/03/23 Unknown Rx TABLETS cholecalciferol (vitamin D3) 125 1 unit PO DAILY 02/06/23 Unknown History mcg (5,000 unit) tablet (Vitamin D3) acetaminophen 500 mg capsule 1,000 mg PO Q6H PRN fever or pain 06/06/25 Unknown History bupropion HCl 150 mg tablet,12 hr 150 mg PO QAM 06/06/25 Unknown History sustained-release (Wellbutrin SR) bisacodyl 5 mg tablet,delayed 20 mg (4 x 5 mg) PO ONCE #4 tabs 07/15/25 Unknown Rx release polyethylene glycol 3350 17 238 g PO ONCE #238 grams 07/15/25 Unknown Rx gram/dose oral powder Allergy/AdvReac Type Severity Reaction Status Date / Time latex Allergy Mild Rash Verified 08/02/25 11:42 Family History Mother Hypertension Surgical History History of surgical removal of ganglion cyst Hx of tonsillectomy Social History Smoking Status: Current some day smoker tobacco type: cigarettes alcohol intake: current alcohol intake frequency: a few times a month Alcohol type: beer substance use type: marijuana Review of Systems (Anesthesia) ROS Narrative System reviewed and no additional complaints, except as documented. Physical Exam Const alert and oriented x3 Nutritional Appearance: morbidly obese Resp normal respiratory effort, normal air movement and clear to auscultation bilaterally Cardio regular rate, regular rhythm and no murmurs
--- NOTE | 2025-08-02 12:30 | COLBX_PTH ---
PATIENT: BRIAN GONZALEZ LOC: EN U#:[id number] AGE/SX: 40/F ROOM: RE08/02/[address]: Dr. Mikel Abrams DO : 1985 BED: DIS: 08/02/2025 SPEC #: [id number] RECD: 08/02/25 14:22 STATUS: PAM KYLE #: [id number] ASIF: 08/02/25 12:[address]: Mikel Abrams DEPT: SURGICAL PATHOLOGY RECD BY: Willy Whitaker ENTERED: 08/02/25 15:04 SP TYPE: COLON BX OT DR: Dr. Cecilia Fenton DO Tissues: A - Esophagus, NOS B - Duodenum, NOS C - Gastric mucous membrane D - Ileum, NOS E - COLON BIOPSY Procedures: Surgery Specimen Level IV HEADER OPERATION: Colonoscopy, EGD, biopsy PRE-OP DIAGNOSIS: Weight loss, nausea, diarrhea TISSUE SUBMITTED: A- Distal esophagus biopsy, B- Duodenum biopsy, C- Gastric body biopsy, D- Terminal ileum biopsy, E- Random colon biopsy MICROSCOPIC DIAGNOSIS A. Distal esophagus, biopsy: - Squamous mucosa with reactive changes and up to 8 eosinophils per high power field. - No columnar mucosa observed. B. Duodenum, biopsy: - Normal villous architecture with slightly increased Intraepithelial lymphocytes - see note. Note: The mild Intraepithelial lymphocytosis could be seen with celiac disease. The differential diagnosis includes infection and drug injury reaction, among other entities. Recommend correlation with clinical, endoscopic, and serologic studies, if indicated. C. Gastric body, biopsy: - Oxyntic mucosa with features of reactive gastropathy. - Negative for Helicobacter-like organisms (H&E). D. Terminal ileum, biopsy: - No specific pathologic change. E. Colon, random, biopsy - No specific pathologic change. - The histologic features of microscopic colitis are not demonstrated.: MICROSCOPIC DESCRIPTION Slides are reviewed. GROSS DESCRIPTION A. Received in fixative is one container labeled with the patient's name and designated "Distal esophagus biopsy." The specimen consists of two irregular fragments of puckett tissue that measure 0.4 and 0.6 cm. The specimen is totally submitted in one cassette. B. Received in fixative is one container labeled with the patient's name and designated "Duodenum biopsy." The specimen consists of multiple irregular fragments of puckett tissue that in aggregate measure 0.9 x 0.3 x 0.1 cm. The specimen is totally submitted in one cassette. C. Received in fixative is one container labeled with the patient's name and designated "Gastric body biopsy." The specimen consists of multiple irregular fragments of puckett tissue that in aggregate measure 0.7 x 0.6 x 0.1 cm. The specimen is totally submitted in one cassette. D. Received in fixative is one container labeled with the patient's name and designated "Terminal ileum biopsy." The specimen consists of multiple irregular fragments of puckett tissue that in aggregate measure 0.9 x 0.4 x 0.1 cm. The specimen is totally submitted in one cassette. E. Received in fixative is one container labeled with the patient's name and designated "Random colon biopsy." The specimen consists of multiple irregular fragments of puckett tissue that in aggregate measure 1.1 x 1 x 0.1 cm. The specimen is totally submitted in one cassette. SD 08/02/2025 CPT:29244f6
--- NOTE | 2025-08-02 12:45 | PCM.HP.STD ---
HPI - General General Date of Admission: 08/02/25 Date of Service: 08/02/25 Chief Complaint: Diarrhea HPI Narrative MARY GONZALEZ, is a 40 F who presents Chief Complaint: Loose stool Patient referred from primary care provider for change in bowel habits, nausea and weight loss since February 2025. Patient went to a baseball game and ate a cheeseburger and the following day she had nausea, fever and diarrhea. The symptoms lasted for around a month. Patient's boyfriend also had similar symptoms at this time. Now she is having bowel movements within an hour after eating that are softer. She has lower abdominal cramping during bowel movements. She has nausea that is constant and worse with eating. The symptoms have led to decreased oral intake and weight loss. She endorses unintentional 80 pound weight loss since January 2025. The only dietary change she has made is drinking less soda. She denies any medication changes or lifestyle changes when her symptoms started. Workup thus far has included blood work, stool testing and CT abdomen pelvis which has all been unremarkable. Patient's provider did start her on an antibiotic on 2 occasions which did not resolve any of her symptoms. She denies family history of colon cancer. She has never had a colonoscopy or an EGD before. Patient smokes 1 pack of cigarettes daily, drinks alcohol on occasion and marijuana occasionally. [facility] Medical History Wears glasses Wears partial dentures Wears dentures Arthritis Easy bruising Restless legs Smoker Mixed incontinence Ganglion cyst Vitamin D deficiency Nicotine dependence Snoring Knee osteoarthritis Fatigue Hemorrhoid Low back pain Diarrhea Depression GERD (gastroesophageal reflux disease) Home Medications Medication Instructions Recorded Last Taken Type omeprazole 40 mg capsule,delayed 40 mg PO DAILY 10/07/18 11/05/24 History release citalopram 40 mg tablet 40 mg PO DAILY 02/03/23 11/05/24 History ibuprofen 600 mg tablet 600 mg PO Q8H PRN PRN pain #20 02/03/23 Unknown Rx TABLETS cholecalciferol (vitamin D3) 125 1 unit PO DAILY 02/06/23 Unknown History mcg (5,000 unit) tablet (Vitamin D3) acetaminophen 500 mg capsule 1,000 mg PO Q6H PRN fever or pain 06/06/25 Unknown History bupropion HCl 150 mg tablet,12 hr 150 mg PO QAM 06/06/25 Unknown History sustained-release (Wellbutrin SR) bisacodyl 5 mg tablet,delayed 20 mg (4 x 5 mg) PO ONCE #4 tabs 07/15/25 Unknown Rx release polyethylene glycol 3350 17 238 g PO ONCE #238 grams 07/15/25 Unknown Rx gram/dose oral powder Allergy/AdvReac Type Severity Reaction Status Date / Time latex Allergy Mild Rash Verified 08/02/25 11:42 Family History Mother Hypertension Surgical History History of surgical removal of ganglion cyst Hx of tonsillectomy Social History Smoking Status: Current some day smoker tobacco type: cigarettes alcohol intake: current alcohol intake frequency: a few times a month Alcohol type: beer substance use type: marijuana ROS Constitutional Constitutional: Denies fatigue, fever(s), poor appetite, weight gain or weight loss Gastrointestinal Gastrointestinal: Denies belching, bloating, change in bowel habits, change in stool character, chewing difficulty, coffee ground emesis, constipation, cramping, diarrhea, dyspepsia, dysphagia, early satiety, excessive flatus, fecal incontinence, heartburn, hematemesis, hematochezia, hemorrhoids, loose stools, melena, nausea, odynophagia, rectal bleeding, tenesmus, vomiting or weight changes Vital Signs Vital Signs Vital Signs: 08/02/25 11:42 08/02/25 11:42 08/02/25 12:25 Temperature 97.2 F L 97.2 F L Temperature Source Temporal Pulse Rate 82 82 Respiratory Rate 18 18 Respiratory Pattern Normal Blood Pressure 144/94 H 144/94 H Blood Pressure Mean 110 Blood Pressure Source Monitor Blood Pressure Position Semi-Fowlers Blood Pressure Location Left Arm Pulse Ox 100 100 Oxygen Delivery Method Room Air Room Air Weight Weight: 304 lb 0.279 oz Body Mass Index (BMI) 46.2 Physical Exam Const alert, oriented x3, no apparent distress and healthy appearing General Appearance: cooperative GI normal to inspection, nondistended, normoactive bowel sounds, soft to palpation, non-tender and non-distended Percussion: normal to percussion Rectal Exam: deferred Results Lab / Micro Data Labs: Laboratory Results - last 24 hr 08/02/25 11:35: Urine Test Negative Assessment & Plan Assessment/Plan (1) Weight loss: (2) Nausea: (3) Diarrhea: PLAN: Assessment and Plan Assessment and Plan (1) Diarrhea: Status: Acute Plan: Mary is a 39-year-old female patient here today for evaluation of nausea, change in bowel habits and weight loss since February 2025. Patient symptoms initially started with nausea, diarrhea and fever after eating food at a baseball game. Patient's boyfriend had similar symptoms at the time. She is now having loose stool shortly after eating and constant nausea. Workup thus far has included a CT abdomen pelvis, blood work and stool testing which has all been unremarkable. Her primary care provider did prescribe 2 rounds of antibiotics which did not resolve her symptoms. 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 Due to the unintentional weight loss, she will undergo EGD and colonoscopy for evaluation of her upper and lower GI tract. I have also ordered repeat CBC, CMP and calprotectin. Celiac panel ordered. Pending results will consider further workup or treatment. - CBC, CMP and calprotectin - Celiac panel - EGD - Colonoscopy - Follow-up after procedures (2) Nausea: Status: Acute (3) Weight loss: Status: Acute Orders: Orders CBC W/Diff, Automated Today R19.7 - Diarrhea, unspecified Comprehensive Metabolic Profil Today R19.7 - Diarrhea, unspecified Celiac Disease Profile Today R19.7 - Diarrhea, unspecified Calprotectin, Stool Today R19.7 - Diarrhea, unspecified ] D/C Safety Score for UGIB Assessment Meredith-Blatchford Bleeding Score (GBS): Stratifies upper GI bleeding patients who are "low-risk" and candidates for outpatient management. Hemoglobin, BUN, Recent Vital Signs: Pulse Rate 82 Blood Pressure 144/94 Total Risk Score: 1 Score Interpretation: Score of 0: A GBS of 0 is a “Low Risk” GI bleed, and is highly sensitive (99.6% in a 2007 retrospective study) for predicting which patients did not require any “medical intervention”: blood transfusion, endoscopy, or surgery. This was confirmed in a 2009 Lanc study where patients with a score of 0 were actually discharged and had no GI bleeding mortality at 6 month followup Score above 0: A GBS greater than zero suggests a “High Risk” GI bleed that is likely to require “medical intervention”: transfusion, endoscopy, or surgery. A higher GBS also correlated with a higher likelihood of needing intervention Scores >/= 6 are associated with >50% risk of needing intervention D/C Safety Score for LGIB Assessment Assessment Tool: Readmission and adverse event risk in patients with acute lower GI bleeding. Age, in years: 40-69 Hemoglobin and Recent Vital Signs: Pulse Rate 82 08/02/25 12:25 Blood Pressure 144/94 08/02/25 12:25 Probability of safe discharge: 99% Total Risk Score: 1 Score Interpretation: Probability Percentage of safe discharge (absence of rebleeding, blood transfusion, therapeutic intervention, 28 day readmission, or ) Score of 8 or below: Consider discharge, with appropriate precautions. Score of 9 or above: Discharge NOT recommended. Consider admission with further workup and resuscitation as necessary.
--- NOTE | 2025-08-02 13:38 | PCM.POST.ANE ---
Anesthesia: Postop Eval I Current Vital Signs Temperature: 97 F Pulse Rate: 64 Blood Pressure: 143/81 Respiratory Rate: 16 Pulse Ox: 100 Oxygen Delivery Method: Room Air Assessment Airway patent: Yes Spontaneous unlabored respirations: Yes Mental status: Awake and Calm nausea: No Vomiting: No Anesthesia Complication: No Fluid Hydration Crystalloid volume administer (ml): 800 Total IV fluid infused: 800 Progress Note Anesthesia document: Postop Eval 1 completed: Yes
--- NOTE | 2025-08-02 13:43 | OP.EGD_ITS ---
Patient Name: Mary Toth Procedure Date: 08/02/2025 12:49 PM Date of : 1985 Age: 40 Procedure: Upper GI endoscopy Indications: Epigastric abdominal pain, Functional Dyspepsia, Heartburn Providers: Mikel Abrams DO Referring MD: Cecilia Fenton Medicines: Monitored Anesthesia Care Patient Profile: This is a 40 year old female. Refer to note in patient chart for documentation of history and physical. Patient has symptoms of acute abdominal distention, acute epigastric abdominal pain, acute dyspepsia and chronic nausea. Complications: No immediate complications. Procedure: Pre-Anesthesia Assessment: - Prior to the procedure, a History and Physical was performed, and patient medications and allergies were reviewed. The patient is competent. The risks and benefits of the procedure and the sedation options and risks were discussed with the patient. All questions were answered and informed consent was obtained. Patient identification and proposed procedure were verified. Mental Status Examination: alert and oriented. Airway Examination: normal oropharyngeal airway and neck mobility. Respiratory Examination: clear to auscultation. CV Examination: normal. Prophylactic Antibiotics: The patient does not require prophylactic antibiotics. Prior Anticoagulants: The patient has taken no anticoagulant or antiplatelet agents except for NSAID medication. ASA Grade Assessment: II - A patient with mild systemic disease. After reviewing the risks and benefits, the patient was deemed in satisfactory condition to undergo the procedure. The anesthesia plan was to use monitored anesthesia care (MAC). Immediately prior to administration of medications, the patient was re-assessed for adequacy to receive sedatives. The heart rate, respiratory rate, oxygen saturations, blood pressure, adequacy of pulmonary ventilation, and response to care were monitored throughout the procedure. The physical status of the patient was re-assessed after the procedure. After obtaining informed consent, the endoscope was passed under direct vision. Throughout the procedure, the patient's blood pressure, pulse, and oxygen saturations were monitored continuously. The Colonoscope was introduced through the mouth, and advanced to the third part of the duodenum. Small bowel enteroscopy was deemed necessary. The upper GI endoscopy was accomplished without difficulty. The patient tolerated the procedure well. Scope In: 12:58:21 PM Scope Out: 1:04:11 PM Total Procedure Duration Time 0 hours 5 minutes 50 seconds Findings: Diffuse, white plaques were found in the entire esophagus. Biopsies were taken with a cold forceps for histology. Verification of patient identification for the specimen was done. Estimated blood loss was minimal. Diffuse moderate inflammation characterized by erythema and friability was found in the gastric body. Biopsies were taken with a cold forceps for histology. Biopsies were taken with a cold forceps for Helicobacter pylori testing. Verification of patient identification for the specimen was done. Estimated blood loss was minimal. Patchy mildly erythematous mucosa without active bleeding and with no stigmata of bleeding was found in the entire duodenum. Biopsies were taken with a cold forceps for histology. Verification of patient identification for the specimen was done. Estimated blood loss was minimal. Impression: - Esophageal plaques were found, consistent with candidiasis. Biopsied. - Chronic bile gastritis. Biopsied. - Erythematous duodenopathy. Biopsied. Recommendation: - Discharge patient to home. - Resume previous diet. - Continue present medications. - Await pathology results. - Fluconazole 200 mg once a day x 10 days Procedure Code(s): --- Professional --- 12844, Small intestinal endoscopy, enteroscopy beyond second portion of duodenum, not including ileum; with biopsy, single or multiple CPT copyright 2021 [employer]. All rights reserved. The codes documented in this report are preliminary and upon metal patternmaker apprentice review may be revised to meet current compliance requirements. Mikel Abrams DO 08/02/2025 1:43:21 PM This report has been signed electronically. Number of Addenda: 0 Note Initiated On: 08/02/2025 12:49 PM
--- NOTE | 2025-08-02 13:44 | OP.PROVAT_ITS ---
08/02/2025 Cecilia Fenton Re : Upper GI endoscopy procedure for Mary Toth Dear Eliceo This procedure was performed on Saturday, August 02, 2025. My impressions and recommendations are as follows: Impressions : - Esophageal plaques were found, consistent with candidiasis. Biopsied. - Chronic bile gastritis. Biopsied. - Erythematous duodenopathy. Biopsied. Recommendations : - Discharge patient to home. - Resume previous diet. - Continue present medications. - Await pathology results. - Fluconazole 200 mg once a day x 10 days My findings are described in the full procedure note, which is enclosed. If I can be of further assistance, please feel free to contact me at . Sincerely, Mikel Abrams, 08/02/2025 1:43:21 PM This report has been signed electronically.
--- NOTE | 2025-08-02 13:46 | OP.PROVAT_ITS ---
08/02/2025 Cecilia Fenton Re : Colonoscopy procedure for Mary Toth Dear Eliceo This procedure was performed on Saturday, August 02, 2025. My impressions and recommendations are as follows: Impressions : - Congested mucosa in the entire examined colon. Biopsied. - Diverticulosis in the sigmoid colon. - Mild inflammation was found in the ileum secondary to ileitis. Biopsied. Recommendations : - Discharge patient to home. - Resume previous diet. - Repeat colonoscopy in 5 years for surveillance based on pathology results. - Continue present medications. My findings are described in the full procedure note, which is enclosed. If I can be of further assistance, please feel free to contact me at . Sincerely, Mikel Abrams, 08/02/2025 1:45:41 PM This report has been signed electronically.
--- NOTE | 2025-08-02 13:46 | OP.COLON_ITS ---
Patient Name: Mary Toth Procedure Date: 08/02/2025 1:04 PM Date of : 1985 Age: 40 Procedure: Colonoscopy Indications: Clinically significant diarrhea of unexplained origin Providers: Mikel Abrams DO Referring MD: Cecilia Fenton Medicines: Monitored Anesthesia Care Patient Profile: This is a 40 year old female. Refer to note in patient chart for documentation of history and physical. Patient has symptoms of acute abdominal distention, acute epigastric abdominal pain, acute dyspepsia and chronic nausea. Last Colonoscopy: none. The patient's first colonoscopy is today. Complications: No immediate complications. Procedure: Pre-Anesthesia Assessment: - Prior to the procedure, a History and Physical was performed, and patient medications and allergies were reviewed. The patient is competent. The risks and benefits of the procedure and the sedation options and risks were discussed with the patient. All questions were answered and informed consent was obtained. Patient identification and proposed procedure were verified. Mental Status Examination: alert and oriented. Airway Examination: normal oropharyngeal airway and neck mobility. Respiratory Examination: clear to auscultation. CV Examination: normal. Prophylactic Antibiotics: The patient does not require prophylactic antibiotics. Prior Anticoagulants: The patient has taken no anticoagulant or antiplatelet agents except for NSAID medication. ASA Grade Assessment: II - A patient with mild systemic disease. After reviewing the risks and benefits, the patient was deemed in satisfactory condition to undergo the procedure. The anesthesia plan was to use monitored anesthesia care (MAC). Immediately prior to administration of medications, the patient was re-assessed for adequacy to receive sedatives. The heart rate, respiratory rate, oxygen saturations, blood pressure, adequacy of pulmonary ventilation, and response to care were monitored throughout the procedure. The physical status of the patient was re-assessed after the procedure. After I obtained informed consent, the scope was passed under direct vision. Throughout the procedure, the patient's blood pressure, pulse, and oxygen saturations were monitored continuously. The Colonoscope was introduced through the anus and advanced to the terminal ileum. The colonoscopy was performed without difficulty. The patient tolerated the procedure well. The quality of the bowel preparation was adequate. The terminal ileum, ileocecal valve, appendiceal orifice, and rectum were photographed. Scope In: 1:06:27 PM Scope Withdrawal Time 0 hours 11 minutes 45 seconds Scope Out: 1:24:17 PM Total Procedure Duration Time 0 hours 17 minutes 50 seconds Findings: The perianal and digital rectal examinations were normal. An area of mildly congested mucosa was found in the entire colon. Biopsies were taken with a cold forceps for histology. Verification of patient identification for the specimen was done. Estimated blood loss was minimal. A few small-mouthed diverticula were found in the sigmoid colon. Patchy mild inflammation was found in the terminal ileum. Biopsies were taken with a cold forceps for histology. Verification of patient identification for the specimen was done. Estimated blood loss was minimal. Impression: - Congested mucosa in the entire examined colon. Biopsied. - Diverticulosis in the sigmoid colon. - Mild inflammation was found in the ileum secondary to ileitis. Biopsied. Recommendation: - Discharge patient to home. - Resume previous diet. - Repeat colonoscopy in 5 years for surveillance based on pathology results. - Continue present medications. Procedure Code(s): --- Professional --- 46378, Colonoscopy, flexible; with biopsy, single or multiple CPT copyright 2021 [employer]. All rights reserved. The codes documented in this report are preliminary and upon radio broadcaster review may be revised to meet current compliance requirements. Mikel Abrams DO 08/02/2025 1:45:41 PM This report has been signed electronically. Number of Addenda: 0 Note Initiated On: 08/02/2025 1:04 PM
--- NOTE | 2025-08-02 15:45 | PCM.POSTANE2 ---
Anesthesia Postop Eval I Sum Postop Eval Completion status Anesthesia document: Postop Eval 1 completed: Yes Anesthesia Postop Eval I Summary Anesthesia Postop Eval I Summary: Anesthesia Postop Eval I: Assessment Summary Airway patent Yes 08/02/25 13:40 [email or web address] Spontaneous unlabored Yes 08/02/25 13:40 [email or web address] respirations Mental status Awake,Calm 08/02/25 13:40 [email or web address] nausea No 08/02/25 13:40 [email or web address] Vomiting No 08/02/25 13:40 [email or web address] Anesthesia Postop Eval I: Fluid Summary Crystalloid volume administer 800 08/02/25 13:40 [email or web address] (ml) Colloids volume administered ( ml) Blood Product volume administered (ml) Total IV fluid infused 800 08/02/25 13:40 [email or web address] Anesthesia Postop Eval I: Summary Notes Anesthesia Complication No 08/02/25 13:40 [email or web address] Anesthesia Complication Comment: Post-operative progress note Anesthesia: Postop Eval II Evaluation Mental status: Awake Pain Level: 0 nausea: No Vomiting: No Complications Anesthesia Complication: No
== END 2025-08-02 14:12 | disposition home or self-care (01) ==
LOC: EN 11:24 → AC 11:25
PROVIDERS: Anesthesiology; Visit Provider Internal Medicine Gastroenterology
DX: K29.50 Unspecified chronic gastritis without bleeding (principal); E66.01 Morbid (severe) obesity due to excess calories; F17.210 Nicotine dependence, cigarettes, uncomplicated; K57.30 Diverticulosis of large intestine without perforation or abscess without bleeding; K21.9 Gastro-esophageal reflux disease without esophagitis
CPT/HCPCS: 45380; 44361; 88342; 81025; 88305; J2405

== ENCOUNTER → 2025-09-08 | Outpatient (CLI) | payer MEDICAID, SELFPAY ==
[2025-09-08 11:20] LABS: Hematocrit 40.3 % (37-47); Hemoglobin 13.1 g/dL (12.0-15.0); Mean Corp Hgb Conc 32.5 g/dL (32-36); Mean Corpuscular Volume 92.9 fL (81-99); Mean Platelet Vol. 10.8 fl (6.2-12.0); Platelet Count 222 K/mm3 (150-450); RBC Distribution Width CV 14.4 % (11.6-14.6); RBC Distribution Width SD 49.2 fl (35.1-43.9); Red Blood Count 4.34 M/mm3 (4.2-5.4); White Blood Count 4.6 K/mm3 (4.4-11.0)
[2025-09-08 12:45] LABS: Cholesterol 190 mg/dL (<=200); Follicle Stimulating Hormone 13.1 mIU/mL; Low Density Lipoprotein Calc. 117 mg/dL; Triglycerides 86 mg/dL; Very Low Density Lipoprotein 17 mg/dL (5-40); Vitamin D,25 Hydroxy 54.8 ng/mL (30-100); cholesterol:hdl ratio screen 3.30
[2025-09-08 12:48] LABS: AST(SGOT) 22 U/L (<=31); Alanine Aminotransfer ALT/SGPT 11 U/L (<=34); Albumin, Serum 3.6 g/dL (3.5-5.0); Alkaline Phosphatase 75 U/L (35-104); Anion Gap 9 (5-15); BUN 11 mg/dL (4-19); BUN/Creat Ratio 13.4 RATIO (10-20); Calcium,Total 8.8 mg/dL (7.6-11.0); Carbon Dioxide 24.4 mmol/L (21.0-32.0); Chloride 105 mmol/L (98-108); Globulin 2.5 g/dL (2.2-4.2); Glucose 100 mg/dL (70-99); Potassium 4.2 mmol/L (3.3-5.1)
== END | disposition home or self-care (01) ==
LOC: LAB 10:29
DX: N91.2 Amenorrhea, unspecified (principal); F33.1 Major depressive disorder, recurrent, moderate; E66.01 Morbid (severe) obesity due to excess calories; R73.9 Hyperglycemia, unspecified; E55.9 Vitamin D deficiency, unspecified; K21.9 Gastro-esophageal reflux disease without esophagitis
CPT/HCPCS: 36415; 80053; 80061; 82306; 82670; 83001; 83002; 83036; 84443; 85027